=== PATIENT | female | born 1990 | race Caucasian/White ===

== ENCOUNTER 2019-05-16 17:54 | Inpatient (IN) | payer MEDICARE, MEDICAID, SELFPAY ==
[2019-05-16 17:55] VITALS: BP 106/54; PULSE 85; RESP 16; TEMP 36.5; O2SAT 97; BMI 35.2
--- NOTE | 2019-05-16 18:05 | PC.NURSE ---
janitorial services supervisor notified of the need for a sitter
--- NOTE | 2019-05-16 18:19 | PC.NURSE ---
patient placed in paper scrubs, UA obtained. UA given to RN and placed in lab. pt belongings obtained, labeled and placed in cabinet. 1:1 sitter at bedside. pt given warm blanket, resting comfortably and states no further needs.
--- NOTE | 2019-05-16 18:31 | ED_ITS ---
Entered by Kosta Sanchez LPN, acting as scribe for Raad Foley DO HPI - Psych General: Chief Complaint: Psychiatric Symptoms Stated Complaint: SI Time Seen by Provider: 05/16/19 18:32 Source: patient Mode of arrival: EMS Limitations: no limitations History of Present Illness: HPI Narrative: 28 yo female presents c/o depression and suicidal ideation. She has felt this way in the past. Last released from the hospital for similar visit 04/16/19. She has not yet formed a plan to commit suicide, states she [place] into the ambulance [place] the [place] first. She is currently on psych meds, reports she has been taking them. She denies any alcohol or drug use today. MD complaint: suicidal ideation Onset (ago): day(s) Associated symptoms: Reports depression and suicidal ideation; Deny auditory hallucinations, visual hallucinations or homicidal ideation If self harm: admits thoughts of self harm Review of Systems Const: Denies: fever or chills Eyes: Denies: change in vision or blurry vision ENMT: Denies: painful swallowing, swelling of lips/tongue, bleeding gums, dental pain, Change in hearing, nose bleeds, post nasal drip or facial/sinus pain Card: Denies: chest pain, palpitations, irregular heart rhythm, edema, swelling of feet/ankles, shortness of breath on exertion or shortness of breath when lying down Resp: Denies: shortness of breath, productive cough, non-productive cough or wheezing GI: Denies: abdominal pain, nausea, vomiting, rectal pain, blood in stool or black tarry stool : Denies: painful urination, urinary frequency, urinary urgency or blood in urine Musc: Denies: neck pain, back pain, redness or joint warmth Skin/Breast: Denies: rash, itching or redness Neuro: Denies: headache, dizziness, vertigo, confusion or seizure-like activity Psych: Reports: depression and suicidal ideation; Denies: anxiety, visual hallucinations, auditory hallucinations or homicidal ideation PFSH ED PFSH: Statuses (acute, chronic, etc) shown below reflect problem list status as previously entered and may not be historically accurate Social History Smoking and tobacco status: current every day smoker Female Reproductive History: Date of last menstrual period: 04/24/19 Physical Exam Const: COMMON NORMALS: no apparent distress, oriented x3, no limitations, alert and well nourished GENERAL APPEARANCE: well developed ORIENTATION/CONSCIOUSNESS: Yes awake, Yes oriented to person, Yes oriented to place and Yes oriented to time HENMT: COMMON NORMALS: normocephalic, external ears normal, external nose normal and moist oral mucous membranes HEAD & SCALP: normocephalic; no scalp tenderness FACE & SINUS: normal facial exam NOSE: external nose normal and no nasal discharge EXTERNAL EAR: Yes external ears normal MOUTH: tongue normal THROAT: posterior oropharynx normal; no peritonsillar mass Eye: COMMON NORMALS: PERRL, EOMs intact bilaterally and conjunctivae normal EYELID: eyelids normal CONJUNCTIVA: Yes conjunctivae normal PUPIL: Yes PERRL Neck/C-Spine: COMMON NORMALS: full ROM GENERAL: No tracheal deviation CERVICAL SPINE: Yes normal cervical lordosis, No cervical spine tenderness, No step off deformity, No paracervical muscle tenderness and No paracervical muscle spasm Chest: COMMONS NORMALS: inspection of chest normal CHEST: Yes symmetrical chest wall rise and No tenderness Resp: COMMON NORMALS: clear to auscultation bilaterally EFFORT & INSPECTION: No tachypneic, No respiratory distress, No retractions, No uses accessory muscles and No tracheal deviation AUSCULTATION: clear to auscultation bilaterally, no rhonchi, no wheezes and lung sounds not diminished Cardio: COMMON NORMALS: regular rate and regular rhythm RATE: regular rate RHYTHM: regular rhythm HEART SOUNDS: no murmurs PERIPHERAL PULSES: rad ial pulses present GI: INSPECTION: No abdominal distension AUSCULTATION: No hyperactive bowel sounds and No hypoactive bowel sounds PALPATION: No tender, No guarding and No rigid PERCUSSION: no dullness to percussion and no tympanic to percussion : COMMON NORMALS: Yes no CVA tenderness BLADDER/KIDNEY EXAM: Yes no CVA tenderness Back/Pelvis: COMMON NORMALS: no CVA tenderness PELVIS: Yes no pain with anterior-posterior compression and Yes no pain with lateral compression Neuro: COMMON NORMALS: oriented x3 SENSORIUM/ORIENTATION: Yes alert, Yes oriented to person, Yes oriented to place and Yes oriented to time Psych: COMMON NORMALS: mental status grossly normal, cooperative, affect normal, speech normal and denies homicidal ideation SPEECH: Yes normal speech MOOD & AFFECT: Yes depressed mood THOUGHT CONTENT: Yes suicidality Skin: COMMON NORMALS: no rashes or lesions noted GENERAL SKIN EXAM: no rashes or lesions noted MDM - Psych Lab Data: Labs: Lab Results 05/16/19 05/16/19 05/16/19 Range/Units 18:15 18:50 18:50 WBC 10.8 H (4.0-10.0) 10^3/ uL RBC 4.24 (4.1-5.3) 10^6/u L Hgb 12.5 (11.5-15.3) g/dL Hct 39.1 (37.0-47.0) % MCV 92.2 (81-99) fL MCH 29.5 (28.0-34.0) pg MCHC 32.0 (30.0-36.0) g/dL RDW 14.3 (12.1-15.1) % Plt Count 258 (130-400) 10^3/c mm MPV 10.2 (7.4-10.4) fL Neut % (Auto) 43.2 % Lymph % (Auto) 42.8 % Lanier % (Auto) 5.2 % Eos % (Auto) 7.6 % Baso % (Auto) 0.6 % Neut # (Auto) 4.7 (1.8-7.7) 10^3/u L Lymph # (Auto) 4.6 (0.8-4.8) 10^3/u L Lanier # (Auto) 0.6 (0.2-0.9) 10^3/u L Eos # (Auto) 0.8 (0.0-0.8) 10^3/u L Baso # (Auto) 0.1 (0.0-0.1) 10^3/u L Nucleated RBC % (a uto) 0 % Nucleated RBCs # 0.0 /100WBC Sodium 148 H (136-145) mmol/L Potassium 4.2 (3.5-5.1) mmol/L Chloride 108 H (98-107) mmol/L Carbon Dioxide 24 (22-29) mmol/L Anion Gap 20.2 H (5-19) BUN 9 (6-20) mg/dL Creatinine 0.8 (0.5-0.9) mg/dL GFR Calculation 84.2 L (90-130) mL/min Glucose 135 H (74-109) mg/dL Calcium 9.9 (8.6-10.0) mg/Dl Total Bilirubin 0.2 (0.15-1.2) mg/dL AST 13 (0-32) U/L ALT 14 (0-33) U/L Alkaline Phosphata se 103 (35-105) IU/L Total Protein 7.0 (6.6-8.7) g/dL Albumin 4.4 (3.5-5.2) g/dL Globulin 2.6 (1.3-4.6) g/dL TSH 1.87 (0.27-4.20) uIU/ mL HCG, Qual Negative (Negative) Urine Color (Yellow) Urine Appearance (CLEAR) Urine pH (5-7) Ur Specific Gravit y (1.005-1.030) Urine Protein (Negative) Urine Glucose (UA) (Normal) Urine Ketones (Negative) Urine Occult Blood (Negative) Urine Nitrate (Negative) Urine Bilirubin (NEGATIVE) Urine Urobilinogen (Negative) mg/dL Ur Leukocyte Jayshree ase (Negative) Salicylates < 0.3 L (3-10) mg/dL Urine Opiates Scre en (Negative) ng/mL Acetaminophen < 5.0 L (10-30) ug/mL Ur Barbiturates Sc reen (Negative) ng/mL Ur Phencyclidine S crn (Negative) ng/mL Ur Amphetamines Sc reen (Negative) ng/mL U Benzodiazepines Scrn (Negative) ng/mL Urine Cocaine Scre en (Negative) ng/mL U Marijuana (THC) Screen (Negative) ng/mL Ethyl Alcohol < 10 (0-10) mg/dL 05/16/19 05/16/19 Range/Units 20:25 20:25 WBC (4.0-10.0) 10^3/ uL RBC (4.1-5.3) 10^6/u L Hgb (11.5-15.3) g/dL Hct (37.0-47.0) % MCV (81-99) fL MCH (28.0-34.0) pg MCHC (30.0-36.0) g/dL RDW (12.1-15.1) % Plt Count (130-400) 10^3/c mm MPV (7.4-10.4) fL Neut % (Auto) % Lymph % (Auto) % Lanier % (Auto) % Eos % (Auto) % Baso % (Auto) % Neut # (Auto) (1.8-7.7) 10^3/u L Lymph # (Auto) (0.8-4.8) 10^3/u L Lanier # (Auto) (0.2-0.9) 10^3/u L Eos # (Auto) (0.0-0.8) 10^3/u L Baso # (Auto) (0.0-0.1) 10^3/u L Nucleated RBC % (a uto) % Nucleated RBCs # /100WBC Sodium (136-145) mmol/L Potassium (3.5-5.1) mmol/L Chloride (98-107) mmol/L Carbon Dioxide (22-29) mmol/L Anion Gap (5-19) BUN (6-20) mg/dL Creatinine (0.5-0.9) mg/dL GFR Calculation (90-130) mL/min Glucose (74-109) mg/dL Calcium (8.6-10.0) mg/Dl Total Bilirubin (0.15-1.2) mg/dL AST (0-32) U/L ALT (0-33) U/L Alkaline Phosphata se (35-105) IU/L Total Protein (6.6-8.7) g/dL Albumin (3.5-5.2) g/dL Globulin (1.3-4.6) g/dL TSH (0.27-4.20) uIU/ mL HCG, Qual (Negative) Urine Color Yellow (Yellow) Urine Appearance Clear (CLEAR) Urine pH 6 (5-7) Ur Specific Gravit y 1.020 (1.005-1.030) Urine Protein Neg (Negative) Urine Glucose (UA) Norm (Normal) Urine Ketones Negative (Negative) Urine Occult Blood Neg (Negative) Urine Nitrate Negative (Negative) Urine Bilirubin Neg (NEGATIVE) Urine Urobilinogen Norm (Negative) mg/dL Ur Leukocyte Jayshree ase Negative (Negative) Salicylates (3-10) mg/dL Urine Opiates Scre en Negative (Negative) ng/mL Acetaminophen (10-30) ug/mL Ur Barbiturates Sc reen Negative (Negative) ng/mL Ur Phencyclidine S crn Negative (Negative) ng/mL Ur Amphetamines Sc reen Negative (Negative) ng/mL U Benzodiazepines Scrn Negative (Negative) ng/mL Urine Cocaine Scre en Negative (Negative) ng/mL U Marijuana (THC) Screen Positive H (Negative) ng/mL Ethyl Alcohol (0-10) mg/dL Discharge Plan Discharge Admit Provider: Bismark Fry Discharge Date/Time: 05/16/19 22:10 Coding Level of Care Code ED Senior Environmental Practice Leader for Chg Fwd Exam Problem Focused The documentation recorded by the Laura saul Dani Elizabeth, LPN, accurately reflects the service I personally performed and the decisions made by , Raad Foley, May 16, 2019 17:54
[2019-05-16 18:59] LABS: Basophils # 0.1 10^3/uL (0.0-0.1); Basophils % 0.6 %; Eosinophils # 0.8 10^3/uL (0.0-0.8); Eosinophils % 7.6 %; Hematocrit 39.1 % (37.0-47.0); Hemoglobin 12.5 g/dL (11.5-15.3); Lymphocytes # 4.6 10^3/uL (0.8-4.8); Lymphocytes % 42.8 %; Mean Corpuscular Hemoglobin 29.5 pg (28.0-34.0); Mean Corpuscular Volume 92.2 fL (81-99); Mean Platelet Volume 10.2 fL (7.4-10.4); Monocytes # 0.6 10^3/uL (0.2-0.9); Monocytes % 5.2 %; Neutrophils # 4.7 10^3/uL (1.8-7.7); Neutrophils % 43.2 %; Nucleated Red Blood Cells % 0 %; Platelet Count 258 10^3/cmm (130-400); Red Blood Count 4.24 10^6/uL (4.1-5.3); Red Cell Distribution Width 14.3 % (12.1-15.1); White Blood Count 10.8 10^3/uL (4.0-10.0)
[2019-05-16 19:02] LABS: HCG Qualitative Urine. Negative (Negative)
[2019-05-16 19:22] LABS: Alanine Aminotransferase 14 U/L (0-33); Albumin Level 4.4 g/dL (3.5-5.2); Alkaline Phosphatase 103 IU/L (35-105); Anion Gap 20.2 (5-19); Aspartate Amino Transferase 13 U/L (0-32); Blood Urea Nitrogen 9 mg/dL (6-20); Calcium 9.9 mg/Dl (8.6-10.0); Carbon Dioxide 24 mmol/L (22-29); Chloride 108 mmol/L (98-107); Globulin 2.6 g/dL (1.3-4.6); Glomerular Filtration Rate 84.2 mL/min (90-130); Glucose 135 mg/dL (74-109); Potassium 4.2 mmol/L (3.5-5.1); Sodium 148 mmol/L (136-145); Thyroid Stimulating Hormone 1.87 uIU/mL (0.27-4.20); Total Bilirubin 0.2 mg/dL (0.15-1.2)
[2019-05-16 19:25] LABS: Slide Review Slide Review Perform
--- NOTE | 2019-05-16 19:26 | PC.NURSE ---
Pt sleeping at present time. Will asses upon awakening.
[2019-05-16 19:32] LABS: Acetaminophen < 5.0 ug/mL (10-30); Alcohol Level < 10 mg/dL (0-10); Salicylate < 0.3 mg/dL (3-10)
--- NOTE | 2019-05-16 19:55 | PC.NURSE ---
Introduced self to patient. Pt states that she is SI and has been feeling this way since 04/16/19. When asked what precipitated SI thoughts, she is unaware. Pt has no plan on how to hurt herself. Pt is in no pain at present.
[2019-05-16 20:05] VITALS: BP 112/66; PULSE 81; RESP 18; TEMP 36.9; O2SAT 96
[2019-05-16 20:52] LABS: Add Urine Microscopic? NO
[2019-05-16 21:00] LABS: Amphetamines Screen Urine Negative (Negative); Barbiturates Screen Urine Negative (Negative); Benzodiazepines Screen Urine Negative (Negative); Cocaine Screen Urine Negative (Negative); Opiate Screen Urine Negative (Negative); PCP Screen Urine Negative (Negative); THC Screen Urine Positive (Negative)
[2019-05-16 21:01] LABS: Bilirubin Urine Neg (NEGATIVE); Blood Urine Neg (Negative); Glucose Urine UA Norm (Normal); Ketones Urine Negative (Negative); Leukocyte Esterase Urine Negative (Negative); Nitrate Urine Negative (Negative); Protein Urine Neg (Negative); Urine Appearance Clear (CLEAR); Urine Color Yellow (Yellow); Urobilinogen Urine Norm (Negative); pH Urine 6 (5-7)
--- NOTE | 2019-05-16 21:05 | PC.NURSE ---
Introduced self to patient and initiated vital signs. Pt is A&O x 4 and agreeeable. Pt states that the reason for the ER visit today is due to ...... Pt also complaining of ....... Reassured patient of needs and will continue to monitor. Awaiting provider at bedside.
[2019-05-16 22:17] VITALS: BP 122/85; PULSE 86; RESP 17; TEMP 36.4; O2SAT 97
[2019-05-17 05:55] VITALS: BP 148/97; PULSE 102; RESP 16; TEMP 36.6; O2SAT 96
[2019-05-17 14:00] VITALS: BP 118/83; PULSE 95; RESP 16; TEMP 36.9; O2SAT 97
[2019-05-17] MEDS: propranolol 20 mg Tablet PO (14:11)
[2019-05-17] MEDS: duloxetine 60 mg Capsule PO (17:23)
[2019-05-17] MEDS: ibuprofen 600 mg Tablet PO (17:23)
--- NOTE | 2019-05-17 18:10 | P.HP_ITS ---
Providers/Chief Complaint Admitting Physician: Bismark Fry MD Primary Care Provider: Rowyd Graves APN Chief Complaint: SI HPI NPU History of Present Illness Dena Greene is a 28 year old female who presents today reporting that she is taking her medications as prescribed and that this represents a ongoing family conflict that escalated to a point that she was so angry that she had concerns about self-harm. She reports that she never did it and wasn't going to do it but she was worried. She also had a mild to moderate case of conjunctivitis that has resolved. She reports that she had been feeling crappy and she feels like that may have also contributed to her reaction. She denies any thoughts of lethality today. She reports that her previous evaluations psychosocial representation of her life currently is unchanged. We reviewed her past recent hospitalizations that can be seen below. This is her fourth hospitalization in a year. She reports that she feels her medications are working fine and that she sometimes doesn't manage her emotions well. We discussed the risks benefits and alternatives of increasing the Lamictal and she understood and agreed to proceed as is documented in this note. Her April eval: History of Present Illness Date of Service: Apr 12, 2019 Chief Complaint: I am having a really rough time. HPI: The patient presents today reporting that she is not really sure what is going on. She endorses that she has been struggling with having strange thoughts, being confused, feeling like she is hearing things and seeing things, and feeling paranoid. She reports that she has had success with Depakote and that she had not had access to her medications. She reports that having them back is making her feel better. She endorses a history of hospitalizations and poor follow-up. She is a very poor historian, dosing off during the interview. We agreed that we would try to delve into some of her history more tomorrow. PSYCHIATRIC HISTORY: As above. Significant history of hospitalizations both here and elsewhere. She is on multiple medications. SUBSTANCE ABUSE HISTORY: Significant history of methamphetamine and other drugs. Positive drug screen during this visit. She currently is appearing to be withdrawing from methamphetamine. HISTORY OF PRESENT ILLNESS Chief Complaint: ANXIOUS and AGITATED, DELUSIONAL and HALLUCINATIONS. This started today. (28 yo Female presents to ED with complaint of not sleeping, hallucinations, delusions, and bizarre behavior. Pt is thrashing around in the bed and making nonsensical statements. Pt does not answer questions appropriately. Per EMS, the patient was found in a yard with no pants on.). No situational problems or recent drug use or alcohol consumption. She has not exhibited a behavior change, was not found wandering and is compliant with medication. Has exhibited unusual behavior but been eating or not been depressed. Has not been sleeping. She has had anxiety, delusions and hallucinations. No anger, paranoia, suicidal thoughts or self-injury inflicted. The symptoms are described as severe. No injury is present. Similar symptoms previously. None. Recent medical care: Seen for in ED on 02/06/19 for back pain DX Acute and chronic lumbar back pain. REVIEW OF SYSTEMS Unobtainable due to patient's altered mental status. No difficulty breathing. PAST HISTORY See nurses notes. Hypertension. Lung disease. Neurological disease. Other disease. Asthma. Bronchitis. Hyperglycemia. Hypokalemia. History of migraine headaches. Hepatitis. Constipation. Ovarian cyst. Vaginal bleeding. Urinary tract infection. Pyelonephritis. Sinus problems. Otitis media. Dental abscess. Dental caries. Dental pain. Methicillin-resistant Staphylococcal infection. Folliculitis. Back pain. Anxiety. Bipolar disorder. Depression. Schizophrenia and psychosis. Insomnia. Previous suicide attempts. Substance abuse. ( Lifestyle / Substance Problems). ( Atypical Chest Pain, Abscess). ( Sprain, Suicidal Ideation, Sinusitis, Skin Rash). ( Myofascial Strain). ( Contusion, Costochondritis, Chest Pain). ( Vaginitis). ( Post-Op Complications, Post-Op Wound Dehiscence). ( Fibula Fracture). ( Healing Abscess, Hyperventilation, Hives). Surgeries: Adenoidectomy. Tympanostomy tube placement. Tonsillectomy. Tubal ligation. (GLAND REMOVED BETWEEN THIGHS). SOCIAL HISTORY Current every day smoker. Alcohol use. (unable to obtain). No drug use. ADDITIONAL NOTES The nursing notes have been reviewed. PHYSICAL EXAM Vital Signs: 04/11/2019 19:58 BP: 144/98. HR: 92. RR: 18. O2 saturation: 97%. Temp: 98.4 F. Appearance: Alert. In distress. Appearance is abnormal. Patient is in moderate distress. Is disheveled. Anxious. Eyes: Pupils equal, round and reactive to light. Neck: Normal inspection. Neck supple. CVS: Normal heart rate and rhythm. Heart sounds normal. Respiratory: Breath sounds normal. Chest nontender. Abdomen: Soft and nontender. Back: No tenderness. Skin: Skin warm and dry. Normal skin color. Normal skin turgor. (multiple shallow skin sores consistent with methamphetamine use). Extremities: Extremities exhibit normal ROM. No lower extremity edema. Psych / Neuro: Mood and affect normal. Speech is incoherent and inappropriate. Cognition not normal. The patient is disoriented. Thought content not normal. Thought process not normal. The patient exhibits altered thought processes. Appears to have hallucinations and delusions. Insight and judgement not normal. The patient does not appear to understand hers illness. No motor deficit. No sensory deficit. Disoriented. LABS, X-RAYS, AND EKG Laboratory Tests: Laboratory tests have been ordered, with results reviewed and considered in the medical decision making process. Urinalysis: (MORRO: 04/11/2019 20:57)( MsgRcvd 04/11/2019 21:29) Completed From psychiatric evaluation earlier this year: History of Present Illness Date of Service: May 17, 2018 Chief Complaint: I had a breakdown I guess. HPI: The patient is a 27-year-old female admitted voluntarily for suicidal and homici lisa ideation towards her mother. When asked about any particular trigger yesterday, the patient reports I don't know she states that she has been having bilateral ear pain X3 weeks and hyperacusis and GARCIA. Pt reports that her mother talks too much and has been yelling at her frequently over the past 2 weeks. I felt like killin' my mom. She wouldn't be quiet and my ears was hurtin really bad. The patient has minimal input during interview. She does report irritability and depression all the time and having SI intermittently I was workin' on it coming up with a plan when brother called police. She also endorses some problems with insomnia or hypersomnolence, fatigue, poor appetite, feeling helpless. She denies any visual/auditory/tactile hallucinations but does endorse feeling helpless and endorsing some possible somatic delusions of contamination. Reports I just feel really dirty. I'm planning dirt out of my skin. She is picking her cuticles and face throughout the interview. She denies any overt paranoia but does endorse some ongoing chronic PTSD symptoms which she does not wish to discuss in detail. She reports some vague intermittent nightmares as well as chronic hypervigilance. Psychiatric review of systems: As above. Patient does have established history of PTSD including flashbacks of trauma childhood and nightmares hypervigilance, increased startle, avoidance of triggers, intrusive memories. Denies history of manic episode including periods of hyper-/irritable mood with decreased need for sleep and risky behaviors. Past psychiatric history: Patient has a history of 4 prior NPU admissions in the context of suicidal/homicidal ideation and methamphetamine/cannabis abuse. The patient has had a prior diagnosis of bipolar disorder versus schizophrenia on acting injectable Abilify and history of noncompliance with medication. Past medications: BuSpar/hydroxyzine not helpful for anxiety, Zyprexa somewhat helpful for anxiety. Reports recently intermittently taking Zyprexa/Lamictal/Cymbalta. Past medical history: Numerous skin picking lesions, history of Hypertension, asthma, history of recurrent hypokalemia, history of migraines, obstructive sleep apnea on CPAP, history of recurrent otitis media and ear surgeries. Family history: Reports mother has mental health problems Social history: Patient is single and lives with her mother. She is unemployed on disability. Does report occasional marijuana use but denies any methamphetamine use for the past 1 year despite being informed of positive urine drug screen for amphetamines. Denies any significant alcohol use. Denies legal problems. Allergies: Coded Allergies: ACETAMINOPHEN (Verified Allergy, Severe, RASH, 05/16/18) ADHESIVE TAPE (Verified Allergy, Severe, SEVERE RASH, 05/16/18) CODEINE (Verified Allergy, Severe, RASH, 05/16/18) GUAIFENESIN (Verified Allergy, Severe, RASH, DIARRHEA, THROWING UP, 05/16/18) SULFA (SULFONAMIDE ANTIBIOTICS) (Verified Allergy, Severe, RASH, DIARHEA, 05/16/18) ALL SULFA SUMATRIPTAN (Verified Allergy, Severe, HEADACHES, 05/16/18) ERYTHROMYCIN ETHYLSUCCINATE (Verified Allergy, Unknown, RASH, 05/16/18) Meds NPU Home Medications Medication Instructions Recorded Confirmed Type duloxetine [Cymbalta] 60 mg PO BID 05/17/19 05/17/19 History ibuprofen [IBU] 600 mg PO BID 05/17/19 05/17/19 History lactulose 5 ml PO BID 05/17/19 05/17/19 History lamotrigine [Lamictal] 100 mg PO BEDTIME 05/17/19 05/17/19 History propranolol 20 mg PO DAILY 05/17/19 05/17/19 History tizanidine [Zanaflex] 4 mg PO DIRECTED PRN MDD 3 05/17/19 05/17/19 History Allergies Allergy/AdvReac Type Severity Reaction Status Date / Time Sulfa (Sulfonamide Allergy Mild ALGY-Rash Verified 05/17/19 11:11 Antibiotics) PFSH NPU PFSH: Statuses (acute, chronic, etc) shown below reflect problem list status as previously entered and may not be historically accurate Social History Smoking and tobacco status: current every day smoker Mental Status Exam MSE Comments: This is an obese white female with limited dressed, grooming and contact. No abnormal movements except for psychomotor retardation. Cooperative with exam in no acute distress. Speech was decreased rate and volume. Mood described as tired, affect subdued. Thought process organized. Thought content: Patient denies any suicidal or homicidal ideation, there were no delusions reported or noted, she denied any auditory or visual hallucinations. Attention and concentration were intact and memory appeared reliable with none were formally tested. She is alert and oriented ?3. Insight and judgment are fair. Vitals/I&O/Wt Last Vital Signs Temp 98.5 F 05/17/19 14:00 Pulse 95 05/17/19 14:00 Resp 16 05/17/19 14:00 BP 118/83 05/17/19 14:00 Pulse Ox 97 05/17/19 14:00 Weight last 48 hrs Weight 81.647 kg A&P Assessment and plan (1) Impulse control disorder: This is a 28-year-old white female with a long history of poor impulse control and cluster B traits, question of PTSD, and addiction issues who presents after a family conflict which lead to aggressive thoughts. 1. Continue current medication. 2. Start Lamictal 25 mg by mouth every morning and discharge with increasing dose every week to get to a final dose of 100 mg by mouth twice a day 3. Encourage individual, group and milieu therapy. 4. Continue every 15 minute checks for safety. 5. Work with social work team to get some collateral information. Status: Acute Code(s): F63.9 - Impulse disorder, unspecified (2) Cluster B personality disorder: Status: Acute Code(s): F60.89 - Other specific personality disorders Involuntary Hold Information 96 Hour Hold: 96 Hour Involuntary Admission: No Attestations NPU 2 Medical Necessity Statement*: Inpatient hospitalization is medically necessary and the clinically appropriate intervention at this time. She will be in the hospital for 2 midnights. We will monitor medications and titrate to effect. Likely will stay 2-4 days. Coding Level of Care Code Acute Chemical Plant Technical Director for g Fwd Diagnoses Impulse control disorder F63.9 Cluster B personality disorder F60.89
[2019-05-17 20:02] VITALS: BP 117/76; PULSE 80; RESP 17; TEMP 37.2; O2SAT 97
[2019-05-17] MEDS: lamoTRIgine 100 mg Tablet PO (22:53)
[2019-05-18 05:56] VITALS: BP 133/91; PULSE 93; RESP 18; TEMP 36.4; O2SAT 96
[2019-05-18] MEDS: lactulose oral liq 20 gm/30 mL UDC 3.34 GM PO (08:23)
[2019-05-18] MEDS: ibuprofen 600 mg Tablet PO (08:24)
[2019-05-18] MEDS: propranolol 20 mg Tablet PO (08:24)
[2019-05-18] MEDS: duloxetine 60 mg Capsule PO (08:25)
[2019-05-18] MEDS: lamoTRIgine 25 mg Tablet PO (12:53)
--- NOTE | 2019-05-18 13:12 | P.DS_ITS ---
Diagnoses at Discharge Discharge Diagnosis (1) Impulse control disorder: Status: Acute (2) Cluster B personality disorder: Status: Acute Reason for Visit Reason for Visit: Reason For Visit: SI Brief History: HPI NPU History of Present Illness Dena Greene is a 28 year old female who presents today reporting that she is taking her medications as prescribed and that this represents a ongoing family conflict that escalated to a point that she was so angry that she had concerns about self-harm. She reports that she never did it and wasn't going to do it but she was worried. She also had a mild to moderate case of conjunctivitis that has resolved. She reports that she had been feeling crappy and she feels like that may have also contributed to her reaction. She denies any thoughts of lethality today. She reports that her previous evaluations psychosocial representation of her life currently is unchanged. We reviewed her past recent hospitalizations that can be seen below. This is her fourth hospitalization in a year. She reports that she feels her medications are working fine and that she sometimes doesn't manage her emotions well. We discussed the risks benefits and alternatives of increasing the Lamictal and she understood and agreed to proceed as is documented in this note. Her April eval: History of Present Illness Date of Service: Apr 12, 2019 Chief Complaint: I am having a really rough time. HPI: The patient presents today reporting that she is not really sure what is going on. She endorses that she has been struggling with having strange thoughts, being confused, feeling like she is hearing things and seeing things, and feeling paranoid. She reports that she has had success with Depakote and that she had not had access to her medications. She reports that having them back is making her feel better. She endorses a history of hospitalizations and poor follow-up. She is a very poor historian, dosing off during the interview. We agreed that we would try to delve into some of her history more tomorrow. PSYCHIATRIC HISTORY: As above. Significant history of hospitalizations both here and elsewhere. She is on multiple medications. SUBSTANCE ABUSE HISTORY: Significant history of methamphetamine and other drugs. Positive drug screen during this visit. She currently is appearing to be withdrawing from methamphetamine. HISTORY OF PRESENT ILLNESS Chief Complaint: ANXIOUS and AGITATED, DELUSIONAL and HALLUCINATIONS. This started today. (28 yo Female presents to ED with complaint of not sleeping, hallucinations, delusions, and bizarre behavior. Pt is thrashing around in the bed and making nonsensical statements. Pt does not answer questions appropriately. Per EMS, the patient was found in a yard with no pants on.). No situational problems or recent drug use or alcohol consumption. She has not exhibited a behavior change, was not found wandering and is compliant with medication. Has exhibited unusual behavior but been eating or not been depressed. Has not been sleeping. She has had anxiety, delusions and hallucinations. No anger, paranoia, suicidal thoughts or self-injury inflicted. The symptoms are described as severe. No injury is present. Similar symptoms previously. None. Recent medical care: Seen for in ED on 02/06/19 for back pain DX Acute and chronic lumbar back pain. REVIEW OF SYSTEMS Unobtainable due to patient's altered mental status. No difficulty breathing. PAST HISTORY See nurses notes. Hypertension. Lung disease. Neurological disease. Other disease. Asthma. Bronchitis. Hyperglycemia. Hypokalemia. History of migraine headaches. Hepatitis. Constipation. Ovarian cyst. Vaginal bleeding. Urinary tract infection. Pyelonephritis. Sinus problems. Otitis media. Dental abscess. Dental caries. Dental pain. Methicillin-resistant Staphylococcal infection. Folliculitis. Back pain. Anxiety. Bipolar disorder. Depression. Schizophrenia and psychosis. Insomnia. Previous suicide attempts. Substance abuse. ( Lifestyle / Substance Problems). ( Atypical Chest Pain, Abscess). ( Sprain, Suicidal Ideation, Sinusitis, Skin Rash). ( Myofascial Strain). ( Contusion, Costochondritis, Chest Pain). ( Vaginitis). ( Post-Op Complications, Post-Op Wound Dehiscence). ( Fibula Fracture). ( Healing Abscess, Hyperventilation, Hives). Surgeries: Adenoidectomy. Tympanostomy tube placement. Tonsillectomy. Tubal ligation. (GLAND REMOVED BETWEEN THIGHS). SOCIAL HISTORY Current every day smoker. Alcohol use. (unable to obtain). No drug use. ADDITIONAL NOTES The nursing notes have been reviewed. PHYSICAL EXAM Vital Signs: 04/11/2019 19:58 BP: 144/98. HR: 92. RR: 18. O2 saturation: 97%. Temp: 98.4 F. Appearance: Alert. In distress. Appearance is abnormal. Patient is in moderate distress. Is disheveled. Anxious. Eyes: Pupils equal, round and reactive to light. Neck: Normal inspection. Neck supple. CVS: Normal heart rate and rhythm. Heart sounds normal. Respiratory: Breath sounds normal. Chest nontender. Abdomen: Soft and nontender. Back: No tenderness. Skin: Skin warm and dry. Normal skin color. Normal skin turgor. (multiple shallow skin sores consistent with methamphetamine use). Extremities: Extremities exhibit normal ROM. No lower extremity edema. Psych / Neuro: Mood and affect normal. Speech is incoherent and inappropriate. Cognition not normal. The patient is disoriented. Thought content not normal. Thought process not normal. The patient exhibits altered thought processes. Appears to have hallucinations and delusions. Insight and judgement not normal. The patient does not appear to understand hers illness. No motor deficit. No sensory deficit. Disoriented. LABS, X-RAYS, AND EKG Laboratory Tests: Laboratory tests have been ordered, with results reviewed and considered in the medical decision making process. Urinalysis: (MORRO: 04/11/2019 20:57)( MsgRcvd 04/11/2019 21:29) Completed From psychiatric evaluation earlier this year: History of Present Illness Date of Service: May 17, 2018 Chief Complaint: I had a breakdown I guess. HPI: The patient is a 27-year-old female admitted voluntarily for suicidal and homicidal ideation towards her mother. When asked about any particular trigger yesterday, the patient reports I don't know she states that she has been having bilateral ear pain X3 weeks and hyperacusis and GARCIA. Pt reports that her mother talks too much and has been yelling at her frequently over the past 2 weeks. I felt like killin' my mom. She wouldn't be quiet and my ears was hurtin really bad. The patient has minimal input during interview. She does report irritability and depression all the time and having SI intermittently I was workin' on it coming up with a plan when brother called police. She also endorses some problems with insomnia or hypersomnolence, fatigue, poor appetite, feeling helpless. She denies any visual/auditory/tactile hallucinations but does endorse feeling helpless and endorsing some possible somatic delusions of contamination. Reports I just feel really dirty. I'm planning dirt out of my skin. She is picking her cuticles and face throughout the interview. She denies any overt paranoia but does endorse some ongoing chronic PTSD symptoms which she does not wish to discuss in detail. She reports some vague intermittent nightmares as well as chronic hypervigilance. Psychiatric review of systems: As above. Patient does have established history of PTSD including flashbacks of trauma childhood and nightmares hypervigilance, increased startle, avoidance of triggers, intrusive memories. Denies history of manic episode including periods of hyper-/irritable mood with decreased need for sleep and risky behaviors. Past psychiatric history: Patient has a history of 4 prior NPU admissions in the context of suicidal/homicidal ideation and methamphetamine/cannabis abuse. The patient has had a prior diagnosis of bipolar disorder versus schizophrenia on acting injectable Abilify and history of noncompliance with medication. Past medications: BuSpar/hydroxyzine not helpful for anxiety, Zyprexa somewhat helpful for anxiety. Reports recently intermittently taking Zyprexa/Lamictal/Cymbalta. Past medical history: Numerous skin picking lesions, history of Hypertension, asthma, history of recurrent hypokalemia, history of migraines, obstructive sleep apnea on CPAP, history of recurrent otitis media and ear surgeries. Family history: Reports mother has mental health problems Social history: Patient is single and lives with her mother. She is unemployed on disability. Does report occasional marijuana use but denies any methamphetamine use for the past 1 year despite being informed of positive urine drug screen for amphetamines. Denies any significant alcohol use. Denies legal problems. Allergies: Coded Allergies: ACETAMINOPHEN (Verified Allergy, Severe, RASH, 05/16/18) ADHESIVE TAPE (Verified Allergy, Severe, SEVERE RASH, 05/16/18) CODEINE (Verified Allergy, Severe, RASH, 05/16/18) GUAIFENESIN (Verified Allergy, Severe, RASH, DIARRHEA, THROWING UP, 05/16/18) SULFA (SULFONAMIDE ANTIBIOTICS) (Verified Allergy, Severe, RASH, DIARHEA, 05/16/18) ALL SULFA SUMATRIPTAN (Verified Allergy, Severe, HEADACHES, 05/16/18) ERYTHROMYCIN ETHYLSUCCINATE (Verified Allergy, Unknown, RASH, 05/16/18) Hospital Course Hospital Course Dena presented to the emergency room with thoughts of lethality but minus acts of furtherance per anyone's report. She did report that she fell there was something missing from her medication regimen. We discussed the risks benefits and alternatives of increasing her Lamictal to a more therapeutic dosing, and she understood and agreed to proceed with the increase which would take her from 100 mg at night 200 mg p.o. twice daily with a titration over 3 weeks. We discussed the risk for Mazariegos-Shahbaz syndrome by moving more quickly with the dosing. She has been on a higher dose in the past with success. She was fairly ambivalent about coming into the hospital in the first place and was very quickly desirous for discharge. During the hospitalization she had routine laboratory studies which were within normal limits except for a few outliers. Additionally she had a general medical evaluation which was also within normal limits and revealed no new acute processes. Discharge Summary At the time of discharge she denied all lethality, and endorsed that her mood had improved and anxiety was better knowing that she was going to be returning to a better dose of the Lamictal. She endorsed a plan to follow-up at outpatient services after discharge. She was absent credible lethality and had obtained the maximum benefit from an inpatient hospitalization so she was discharged. Involuntary Hold Information 96 Hour Hold: 96 Hour Involuntary Admission: No Mental Status Exam MSE Comments: This is an obese white female with adequate dress, grooming and eye contact. No abnormal movements except for improving psychomotor retardation. Cooperative with exam in no acute distress. Speech was slightly decreased rate and volume. Mood described as better, affect brighter. Thought process organized. Thought content: Patient denies any suicidal or homicidal ideation, there were no delusions reported or noted, she denied any auditory or visual hallucinations. Attention and concentration were intact and memory appeared reliable with none were formally tested. She is alert and oriented ?3. Insight and judgment are fair. Discharge Data Vitals: Last Vital Signs Temp 97.6 F 05/18/19 05:56 Pulse 93 05/18/19 05:56 Resp 18 05/18/19 05:56 BP 133/91 05/18/19 05:56 Pulse Ox 96 05/18/19 05:56 Discharge Plan Discharge Patient Disposition: Home, Self-Care Condition: Stable Prescriptions: New lamotrigine 100 mg Tablet 100 mg PO BID 30 Days Qty: 60 RF: 1 Continued ibuprofen [IBU] 600 mg Tablet 600 mg PO BID RF: 0 lactulose 10 gram/15 mL solution 5 ml PO BID RF: 0 tizanidine [Zanaflex] 4 mg tablet 4 mg PO DIRECTED MDD 3 PRN (Reason: Muscle Spasm) RF: 0 propranolol 20 mg tablet 20 mg PO DAILY 30 Days Qty: 30 RF: 1 Lamictal 100 mg tablet 100 mg PO BEDTIME 20 Days Qty: 20 RF: 0 Cymbalta 60 mg capsule,delayed release(DR/EC) 60 mg PO BID 30 Days Qty: 60 RF: 1 Discharge Orders: Discharge Order (Routine); Ordered 05/18/19 Ordered By: Bismark Fry Discharge Diet: Regular Discharge Activity: Resume usual activity Activity Restrictions/Additional Instructions: Previously scheduled appointment with your medication provider CIRILO Rosales June 02 @ 11:20 am with CIRILO Johansen [address] [address] Discharge Date/Time: 05/18/19 14:59 Discharge Attestations NPU Time Spent in Discharge Care*: less than 30 min Specific Discharge Activities: Specific discharge activities: educating patient, discussing with telephonic case manager/social workers/dc planners, documenting/other paperwork and evaluating patient/reviewing data Coding Level of Care Code Acute Paperboard Boxes Estimator for Lathag Fwd Diagnoses Impulse control disorder F63.9 Cluster B personality disorder F60.89
--- NOTE | 2019-05-18 13:36 | PC.SOCIAL ---
Medicaid ride called for trip home, confirmation #[id number]. Requested 2:30PM arrival time. If for some reason the ride does not show up you may call the Where's My Ride number at
[2019-05-18 13:42] VITALS: BP 134/70; PULSE 80; RESP 20; TEMP 36.7; O2SAT 98
== END 2019-05-18 14:59 | disposition home or self-care (01) | DRG 886 ==
LOC: ER 20:15 → NP 21:40
PROVIDERS: Admitting Provider Psychiatry & Neurology Psychiatry; Emergency Provider Emergency Medicine; PCP Nurse Practitioner Family; Visit Provider Psychiatry & Neurology Psychiatry
DX: F63.9 Impulse disorder, unspecified (principal); I10 Essential (primary) hypertension; F41.9 Anxiety disorder, unspecified; F31.9 Bipolar disorder, unspecified; F20.9 Schizophrenia, unspecified; G47.00 Insomnia, unspecified; F43.10 Post-traumatic stress disorder, unspecified; G47.33 Obstructive sleep apnea (adult) (pediatric); Z88.2 Allergy status to sulfonamides; F60.89 Other specific personality disorders; E66.9 Obesity, unspecified; Z68.35 Body mass index [BMI] 35.0-35.9, adult
CPT/HCPCS: 12345; 80053; 80307; 81003; 81025; 84443; 85025; 99284

== ENCOUNTER 2019-05-21 19:50 | Emergency (ER) | payer MEDICARE, MEDICAID, SELFPAY ==
[2019-05-21 20:06] VITALS: BP 156/98; PULSE 88; RESP 18; TEMP 37; O2SAT 98; BMI 35.2
--- NOTE | 2019-05-21 20:12 | ED_ITS ---
HPI - General Adult General: Stated complaint: STRESSED OUT Time Seen by Provider: 05/21/19 20:02 History of Present Illness: HPI narrative: Patient feels tired had an argument with her brother. They lost her lease today. Patient not suicidal nor hurting by. Just feels anxious. Onset (ago): day(s) Associated symptoms: Deny chest pain, dyspnea, headache(s), nausea, rash or vomiting Review of Systems Const: Denies: fever, chills or body aches Eyes: Denies: change in vision or blurry vision ENMT: Denies: throat pain or nasal congestion Card: Denies: chest pain or shortness of breath on exertion Resp: Denies: shortness of breath, productive cough or non-productive cough GI: Denies: abdominal pain, nausea or vomiting Musc: Denies: extremity pain Skin/Breast: Denies: rash Neuro: Denies: headache Psych: Reports: anxiety; Denies: depression Renny/Lymph: Denies: easy bruising PFSH ED PFSH: Statuses (acute, chronic, etc) shown below reflect problem list status as previously entered and may not be historically accurate Social History Smoking and tobacco status: current every day smoker Female Reproductive History: Date of last menstrual period: 04/24/19 Physical Exam Const: COMMON NORMALS: no apparent distress, average body habitus and oriented x3 HENMT: COMMON NORMALS: normocephalic HEAD & SCALP: normal to inspection and normocephalic FACE & SINUS: normal facial exam Eye: COMMON NORMALS: conjunctivae normal GENERAL EYE: normal appearance of both eyes CONJUNCTIVA: Yes conjunctivae normal Neck/C-Spine: COMMON NORMALS: no JVD Chest: COMMONS NORMALS: inspection of chest normal Resp: COMMON NORMALS: normal respiratory effort and clear to auscultation bilaterally AUSCULTATION: clear to auscultation bilaterally Cardio: COMMON NORMALS: no JVD, regular rate and regular rhythm RATE: regular rate RHYTHM: regular rhythm GI: COMMON NORMALS: normal to inspection, nondistended, normoactive bowel sounds Extremity: COMMON NORMALS: normal to inspection and full ROM Neuro: COMMON NORMALS: oriented x3 Discharge Plan Discharge Prescriptions: No Action ibuprofen [IBU] 600 mg Tablet 600 mg PO BID RF: 0 lactulose 10 gram/15 mL solution 5 ml PO BID RF: 0 tizanidine [Zanaflex] 4 mg tablet 4 mg PO DIRECTED MDD 3 PRN (Reason: Muscle Spasm) RF: 0 lamotrigine 25 mg Tablet 25 mg PO DAILY 20 Days Qty: 41 RF: 0 lamotrigine 100 mg Tablet 100 mg PO BID 30 Days Qty: 60 RF: 1 propranolol 20 mg tablet 20 mg PO DAILY 30 Days Qty: 30 RF: 1 Lamictal 100 mg tablet 100 mg PO BEDTIME 20 Days Qty: 20 RF: 0 Cymbalta 60 mg capsule,delayed release(DR/EC) 60 mg PO BID 30 Days Qty: 60 RF: 1 Coding Level of Care Code ED Dust Mill Operator for Adelia Cat
[2019-05-21] MEDS: LORazepam 1 mg Tablet 0.5 MG PO (20:44)
[2019-05-21 20:50] VITALS: BP 121/92; PULSE 105; RESP 14; TEMP 36.6; O2SAT 99
[2019-05-21 21:04] LABS: HCG Qualitative Urine. Negative (Negative)
== END 2019-05-21 20:50 | disposition home or self-care (01) ==
PROVIDERS: Emergency Provider Nurse Practitioner Family; PCP Nurse Practitioner Family
DX: F43.9 Reaction to severe stress, unspecified (principal); F17.210 Nicotine dependence, cigarettes, uncomplicated
CPT/HCPCS: 81025; 99281

== ENCOUNTER 2019-11-22 12:05 | Outpatient (CLI) | payer MEDICARE, MEDICAID, SELFPAY ==
--- NOTE | 2019-11-22 12:30 | CT_ITS ---
WS: [id number] CT ABDOMEN PELVIS TECHNIQUE: Contrast-enhanced CT of the abdomen and pelvis with coronal and sagittal reformatted image s. CLINICAL INFORMATION: UNSPECIFIED ABDOMINAL PAIN, ABDOMINAL DISTENTION COMPARISON: CT 11 and 8 DLP: 1107.[address] scans at [facility] use at least one of these dose optimization techniques: automat ed exposure control; mA and/or kV adjustment per patient size (includes targeted exams where dose is matched to clinical indication); or iterative reconstruction. FINDINGS: Mild diffuse fatty infiltration liver. Normal spleen. Small splenules. Normal pancreas. No intrahepatic biliary ductal dilatation. Adrenal glands are normal. Normal renal p arenchymal enhancement. A few prominent periaortic lymph nodes likely reactive not pathologically enl arged. Tiny fat-containing umbilical hernia. Lung bases are well aerated. Calcified granuloma left lower lob e. Heterogeneous lobulated uterus with bilateral peripheral enhancing adnexal cystic lesions. Right o varian cyst measures 2.5 cm and left ovarian cyst measures 3.2 CM. Small left renal cysts. No signifi cant free fluid in the pelvis. CT/CT abdomen pelvis w con* [id number] IMPRESSION: 1. Heterogeneous uterine enhancement with bilateral ovarian cysts measuring 2. 5 cm right and 3.3 cm left. Recommend further evaluation with ultrasound. 2. Mild diffuse fatty infiltration liver with enlargement of the right hepatic lobe. 3. Small left renal cyst. No hydronephrosis. 4. A few shoddy periaortic lymph nodes likely reactive. 5. No other significant findings.
[2019-11-22] MEDS: iohexol 300 mg/mL 50 mL Btl PO (12:54)
[2019-11-22] MEDS: iohexol 300 mg/mL 100 mL Btl IV (14:16)
== END 2019-11-22 12:06 | disposition home or self-care (01) ==
PROVIDERS: PCP Nurse Practitioner Family; Visit Provider Nurse Practitioner Family
DX: R10.9 Unspecified abdominal pain (principal); R14.0 Abdominal distension (gaseous); N28.1 Cyst of kidney, acquired; K76.0 Fatty (change of) liver, not elsewhere classified; N83.202 Unspecified ovarian cyst, left side; N83.201 Unspecified ovarian cyst, right side
CPT/HCPCS: 74177; Q9967

== ENCOUNTER 2020-02-02 14:07 | Outpatient (CLI) | payer MEDICARE, MEDICAID, SELFPAY ==
--- NOTE | 2020-02-02 14:20 | US_ITS ---
WS: [id number] TRANSABDOMINAL PELVIC AND TRANSVAGINAL PELVIC ULTRASOUND HISTORY: OVARIAN CYST COMPARISON: 12/03/2016 Uterus: 8.4 cm x 4.7 cm x 3.9 cm. Normal size anteverted uterus. No fibroid or mass. Endometrium: 0.4 cm. Poorly visualized but no enlargement identified. Right ovary: 4.7 cm x 4.0 cm x 2.7 cm. No cystic mass identified. Slightly enlarged ovary with no ma ss. Left ovary: 4.3 cm x 3.6 cm x 2.7 cm. No mass identified. Normal small peripheral follicles. No free fluid. US/US pelvic with transvaginal IMPRESSION: No ovarian cyst identified today. Endometrial evaluation is limited due to body habitus.
== END 2020-02-02 14:08 | disposition home or self-care (01) ==
PROVIDERS: PCP Nurse Practitioner Family; Visit Provider Nurse Practitioner Family
DX: N83.209 Unspecified ovarian cyst, unspecified side (principal); R93.89 Abnormal findings on diagnostic imaging of other specified body structures
CPT/HCPCS: 76830; 76856

== ENCOUNTER → 2020-10-27 13:51 | Outpatient (BNVA) | payer MEDICARE, MEDICAID, SELFPAY | PROVIDERS: PCP Nurse Practitioner Family; Visit Provider Obstetrics & Gynecology | DX: N93.9 Abnormal uterine and vaginal bleeding, unspecified (principal); N91.4 Secondary oligomenorrhea | CPT/HCPCS: 83001; 84146; 84443; 84702; 85025 ==

== ENCOUNTER → 2020-11-02 13:03 | Outpatient (BNVA) | payer MEDICARE, MEDICAID, SELFPAY | PROVIDERS: PCP Nurse Practitioner Family; Visit Provider Obstetrics & Gynecology | DX: N93.9 Abnormal uterine and vaginal bleeding, unspecified (principal) | CPT/HCPCS: 76830 ==

== ENCOUNTER → 2020-11-10 08:51 | Outpatient (BNVA) | payer MEDICARE, MEDICAID, SELFPAY | PROVIDERS: PCP Nurse Practitioner Family; Visit Provider Obstetrics & Gynecology | DX: N93.9 Abnormal uterine and vaginal bleeding, unspecified (principal); N91.2 Amenorrhea, unspecified | CPT/HCPCS: 82670 ==

== ENCOUNTER 2020-12-07 11:17 | Emergency (ER) | payer MEDICARE, MEDICAID, SELFPAY ==
[2020-12-07 12:21] VITALS: BP 136/86; PULSE 90; RESP 20; TEMP 36.8; O2SAT 96; BMI 50.1
[2020-12-07 15:56] VITALS: BP 137/80; PULSE 87; TEMP 530.9; TEMP 987.7; O2SAT 98
--- NOTE | 2020-12-07 16:06 | W.ED.RECABL ---
Documented by User: SONIA Ewing 12/08/20 07:08 HPI - Recheck/Abnormal Lab/Rx General: Chief Complaint: Recheck/Abnormal Lab/Rx Stated Complaint: ABNORMAL LABS Time Seen by Provider: 12/07/20 15:56 History of Present Illness: HPI narrative: Patient is a 30-year-old female comes to the ED to check some abnormal labs. Patient says she saw a provider 2 days ago and they did some blood work and told her that all of her labs were bad and she needs to come to the ED to be evaluated and to get some IV fluids. Patient does not know any details on the abnormal labs done by provider 2 days ago. Patient complains of having abdominal pain that is generalized for the past year and states that she also has chronic constipation as well. She also reports having some bloody stool and says that she has had it for over a year now and every time she wipes she has some red blood present. Denies any history of hemorrhoids. Denies any fever, chills, chest pain, shortness of breath, nausea/vomiting, diarrhea or dysuria or hematuria. Review of Systems Const: Denies: fever(s), chills or fatigue Eyes: Denies: change in vision or eye discomfort ENMT: Denies: throat pain, odynophagia, nasal discharge or nasal congestion Card: Denies: chest pain, palpitations, edema, swelling of feet/ankles, dyspnea on exertion or orthopnea Resp: Denies: dyspnea, productive cough or non-productive cough GI: Reports: abdominal pain, constipation and hematochezia (blood on toilet paper after she wipes); Denies: nausea, vomiting or diarrhea : Denies: flank pain, dysuria or hematuria Musc: Denies: neck pain, back pain or extremity swelling Skin/Breast: Denies: rash or new lesions Neuro: Denies: headache(s), numbness in extremities or weakness in extremities PFS ED PFSH: Family History Father Colon cancer onset unknown Hyperlipidemia Heart disease Hypertension Family/Other No problems noted. 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 Female Reproductive History: Date of last menstrual period: 04/24/19 Physical Exam Const: COMMON NORMALS: no acute distress, patient oriented x3 and alert GENERAL APPEARANCE: cooperative and comfortable HENMT: COMMON NORMALS: normocephalic HEAD & SCALP: normocephalic MOUTH: Normal oral and palatal mucosa present THROAT: posterior oropharynx normal and uvula midline Eye: COMMON NORMALS: Equal, round and reactive pupils present PUPIL: Yes Equal, round and reactive pupils present Neck/C-Spine: COMMON NORMALS: supple GENERAL: Yes normal visual inspection Resp: COMMON NORMALS: normal respiratory effort, No retractions, No use of accessory muscles and clear to auscultation bilaterally AUSCULTATION: clear to auscultation bilaterally Cardio: COMMON NORMALS: regular rate, regular rhythm, S1 normal heart sound present, S2 normal heart sound present, No gallops present (Cardio), No clicks present (Cardio), No murmurs present (Cardio) and Peripheral pulses 2+ throughout RATE: regular rate RHYTHM: regular rhythm HEART SOUNDS: S1 normal heart sound present and S2 normal heart sound present PERIPHERAL PULSES: Peripheral pulses 2+ throughout GI: COMMON NORMALS: Normal to inspection, nondistended, normoactive bowel sounds present, Soft to palpation and no masses INSPECTION: Yes central obesity PALPATION: Yes Soft to palpation and Yes Tenderness to palpation present (GI) (Mild generalized tenderness throughout abdomen. No localized tenderness.) : COMMON NORMALS: Yes no CVA tenderness BLADDER/KIDNEY EXAM: Yes no CVA tenderness Back/Pelvis: COMMON NORMALS: no CVA tenderness Extremity: COMMON NORMALS: normal to inspection Neuro: COMMON NORMALS: patient oriented x3 and moves all extremities SENSORIUM/ORIENTATION: Yes alert Skin: GENERAL SKIN EXAM: dry skin Course Vital Signs: Vital signs: Vital Signs Temperature 987.7 F H 12/07/20 15:56 Pulse Rate 68 12/07/20 19:37 Respiratory Rate 18 12/07/20 19:37 Blood Pressure 137/80 12/07/20 15:56 Pulse Oximetry 98 12/07/20 19:37 MDM - Recheck/Abnormal Lab/Rx Lab Data: Attestation: I reviewed the patient's lab results. Labs: Lab Results 12/07/20 12/07/20 12/07/20 Range/Units 16:11 16:22 16:22 WBC 11.5 H (4.0-10.0) 10^3/ uL RBC 4.65 (4.1-5.3) 10^6/u L Hgb 13.7 (11.5-15.3) g/dL Hct 42.5 (37.0-47.0) % MCV 91.4 (81-99) fL MCH 29.5 (28.0-34.0) pg MCHC 32.2 (30.0-36.0) g/dL RDW 13.8 (12.1-15.1) % Plt Count 136 (130-400) 10^3/c mm MPV 11.4 H (7.4-10.4) fL Neut % (Auto) 59.8 % Lymph % (Auto) 33.1 % [place] % (Auto) 3.4 % Eos % (Auto) 2.6 % Baso % (Auto) 0.5 % Neut # (Auto) 6.90 (1.8-7.7) 10^3/u L Lymph # (Auto) 3.8 (0.8-4.8) 10^3/u L [place] # (Auto) 0.4 (0.2-0.9) 10^3/u L Eos # (Auto) 0.3 (0.0-0.8) 10^3/u L Baso # (Auto) 0.1 (0.0-0.1) 10^3/u L Nucleated RBC % (a uto) 0 % Nucleated RBCs # 0.0 /100WBC Sodium Cancelled Potassium Cancelled Chloride Cancelled Carbon Dioxide Cancelled Anion Gap Cancelled BUN Cancelled Creatinine Cancelled GFR Calculation Cancelled Glucose Cancelled Calculated Osmolal ity Cancelled Calcium Cancelled Total Bilirubin Cancelled AST Cancelled ALT Cancelled Alkaline Phosphata se Cancelled Total Protein Cancelled Albumin Cancelled Globulin Cancelled Lipase Cancelled HCG, Qual (Negative) Urine Color Yellow (Yellow) Urine Appearance Clear (CLEAR) Urine pH 6 (5-7) Ur Specific Gravit y 1.025 (1.005-1.030) Urine Protein Neg (Negative) Urine Glucose (UA) Norm (Normal) Urine Ketones Negative (Negative) Urine Blood Neg (Negative) Urine Nitrate Negative (Negative) Urine Bilirubin 1+ H (Negative) Urine Urobilinogen 4 H (Negative) mg/dL Ur Leukocyte Jayshree ase Negative (Negative) Urine RBC None (0-2) /hpf Urine WBC 0-4 H (0-5) /hpf Ur Squamous Epith Cells 25-40 H (0-5) /hpf Amorphous Sediment Not Reportable Urine Bacteria 2+ H (NONE) /hpf 12/07/20 12/07/20 Range/Units 16:22 16:22 WBC (4.0-10.0) 10^3/ uL RBC (4.1-5.3) 10^6/u L Hgb (11.5-15.3) g/dL Hct (37.0-47.0) % MCV (81-99) fL MCH (28.0-34.0) pg MCHC (30.0-36.0) g/dL RDW (12.1-15.1) % Plt Count (130-400) 10^3/c mm MPV (7.4-10.4) fL Neut % (Auto) % Lymph % (Auto) % [place] % (Auto) % Eos % (Auto) % Baso % (Auto) % Neut # (Auto) (1.8-7.7) 10^3/u L Lymph # (Auto) (0.8-4.8) 10^3/u L [place] # (Auto) (0.2-0.9) 10^3/u L Eos # (Auto) (0.0-0.8) 10^3/u L Baso # (Auto) (0.0-0.1) 10^3/u L Nucleated RBC % (a uto) % Nucleated RBCs # /100WBC Sodium 138 Potassium 3.5 Chloride 99 Carbon Dioxide 24 Anion Gap 18.5 BUN 10 Creatinine 0.7 GFR Calculation 97.0 Glucose 85 Calculated Osmolal ity 284 L Calcium 9.4 Total Bilirubin 0.2 AST 13 ALT 14 Alkaline Phosphata se 110 H Total Protein 7.7 Albumin 4.9 Globulin 2.8 Lipase 30 HCG, Qual Negative (Negative) Urine Color (Yellow) Urine Appearance (CLEAR) Urine pH (5-7) Ur Specific Gravit y (1.005-1.030) Urine Protein (Negative) Urine Glucose (UA) (Normal) Urine Ketones (Negative) Urine Blood (Negative) Urine Nitrate (Negative) Urine Bilirubin (Negative) Urine Urobilinogen (Negative) mg/dL Ur Leukocyte Jayshree ase (Negative) Urine RBC (0-2) /hpf Urine WBC (0-5) /hpf Ur Squamous Epith Cells (0-5) /hpf Amorphous Sediment Urine Bacteria (NONE) /hpf Discharge Plan Discharge Patient Disposition: Home Clinical Impression: Abnormal laboratory test Condition: Stable Prescriptions: No Action lamotrigine 100 mg tablet 150 mg PO BID RF: 0 propranolol 20 mg tablet 20 mg PO DAILY PRNRF: 0 tizanidine [Zanaflex] 4 mg tablet 4 mg PO DIRECTED MDD 3 PRN (Reason: Muscle Spasm) RF: 0 Cymbalta 60 mg capsule,delayed release(DR/EC) 60 mg PO BID 30 Days Qty: 60 RF: 1 ibuprofen [IBU] 600 mg tablet 800 mg PO BID PRNRF: 0 lactulose 10 gram/15 mL solution 5 ml PO BID PRNRF: 0 Discharge Orders: Discharge ED (Routine); Ordered 12/07/20 Ordered By: Frank Cheema Discharge Diet: Usual diet Discharge Activity: Increase activity as tolerated Patient Instructions: Opioid Safety Activity Restrictions/Additional Instructions: Healthy diet and activity. Drink plenty of fluids. Follow-up with primary care for further instruction. Return to the ER for new concerns. Sign Out Sign Out Data: Patient Sign Out occurred on 12/07/20 at 17:15. Patient's care was discussed, and care was transferred from SONIA Ewing to Frank Cheema. Sign Out Comment: Patient comes to the ED to have some abnormal labs rechecked. Patient is nonspecific on what labs were abnormal and says she got tested 2 days ago at her primary care doctor's office and they told her to come here. She has generalized abdominal pain and constipation that is chronic and has been going on for about a year. Labs ordered and pending. KUB ordered as well. Pending lab results and KUB DC patient home.-ELIZA Last updated by Bartolo Shirley PA at 12/07/20 17:07 Coding Level of Care Code ED Director Integrated for Chg Fwd Exam Comprehensive Documented by User: CIRILO Landaverde 12/07/20 19:05 HPI - Recheck/Abnormal Lab/Rx General: Chief Complaint: Recheck/Abnormal Lab/Rx Stated Complaint: ABNORMAL LABS Time Seen by Provider: 12/07/20 15:56 [facility] ED PFSH: Family History Father Colon cancer onset unknown Hyperlipidemia Heart disease Hypertension Family/Other No problems noted. 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 Received patient from Bartolo Shirley PA-C. Plan is after labs is complete we will discharge to home with primary care follow-up. Vital Signs: Vital signs: Vital Signs Temperature 987.7 F H 12/07/20 15:56 Pulse Rate 68 12/07/20 19:37 Respiratory Rate 18 12/07/20 19:37 Blood Pressure 137/80 12/07/20 15:56 Pulse Oximetry 98 12/07/20 19:37 MDM - Recheck/Abnormal Lab/Rx MDM Narrative: Medical decision making narrative: Patient was sent into the emergency room for abnormal laboratory test. Patient states that her white count was high and her potassium was abnormal. On exam patient appears well. Patient appears no acute distress. Differential diagnosis includes malingering, abnormal laboratory value, hyperkalemia, hypokalemia. Laboratory values were unremarkable. Urinalysis was contaminated. Patient had blood cultures drawn they were outstanding. Reviewed exam with patient with recommendations for treatment follow-up and follow-up with primary care. Patient reported understanding and agreed to plan. Lab Data: Labs: Lab Results 12/07/20 12/07/20 12/07/20 Range/Units 16:11 16:22 16:22 WBC 11.5 H (4.0-10.0) 10^3/ uL RBC 4.65 (4.1-5.3) 10^6/u L Hgb 13.7 (11.5-15.3) g/dL Hct 42.5 (37.0-47.0) % MCV 91.4 (81-99) fL MCH 29.5 (28.0-34.0) pg MCHC 32.2 (30.0-36.0) g/dL RDW 13.8 (12.1-15.1) % Plt Count 136 (130-400) 10^3/c mm MPV 11.4 H (7.4-10.4) fL Neut % (Auto) 59.8 % Lymph % (Auto) 33.1 % [place] % (Auto) 3.4 % Eos % (Auto) 2.6 % Baso % (Auto) 0.5 % Neut # (Auto) 6.90 (1.8-7.7) 10^3/u L Lymph # (Auto) 3.8 (0.8-4.8) 10^3/u L [place] # (Auto) 0.4 (0.2-0.9) 10^3/u L Eos # (Auto) 0.3 (0.0-0.8) 10^3/u L Baso # (Auto) 0.1 (0.0-0.1) 10^3/u L Nucleated RBC % (a uto) 0 % Nucleated RBCs # 0.0 /100WBC Sodium Cancelled Potassium Cancelled Chloride Cancelled Carbon Dioxide Cancelled Anion Gap Cancelled BUN Cancelled Creatinine Cancelled GFR Calculation Cancelled Glucose Cancelled Calculated Osmolal ity Cancelled Calcium Cancelled Total Bilirubin Cancelled AST Cancelled ALT Cancelled Alkaline Phosphata se Cancelled Total Protein Cancelled Albumin Cancelled Globulin Cancelled Lipase Cancelled HCG, Qual (Negative) Urine Color Yellow (Yellow) Urine Appearance Clear (CLEAR) Urine pH 6 (5-7) Ur Specific Gravit y 1.025 (1.005-1.030) Urine Protein Neg (Negative) Urine Glucose (UA) Norm (Normal) Urine Ketones Negative (Negative) Urine Blood Neg (Negative) Urine Nitrate Negative (Negative) Urine Bilirubin 1+ H (Negative) Urine Urobilinogen 4 H (Negative) mg/dL Ur Leukocyte Jayshree ase Negative (Negative) Urine RBC None (0-2) /hpf Urine WBC 0-4 H (0-5) /hpf Ur Squamous Epith Cells 25-40 H (0-5) /hpf Amorphous Sediment Not Reportable Urine Bacteria 2+ H (NONE) /hpf 12/07/20 12/07/20 Range/Units 16:22 16:22 WBC (4.0-10.0) 10^3/ uL RBC (4.1-5.3) 10^6/u L Hgb (11.5-15.3) g/dL Hct (37.0-47.0) % MCV (81-99) fL MCH (28.0-34.0) pg MCHC (30.0-36.0) g/dL RDW (12.1-15.1) % Plt Count (130-400) 10^3/c mm MPV (7.4-10.4) fL Neut % (Auto) % Lymph % (Auto) % [place] % (Auto) % Eos % (Auto) % Baso % (Auto) % Neut # (Auto) (1.8-7.7) 10^3/u L Lymph # (Auto) (0.8-4.8) 10^3/u L [place] # (Auto) (0.2-0.9) 10^3/u L Eos # (Auto) (0.0-0.8) 10^3/u L Baso # (Auto) (0.0-0.1) 10^3/u L Nucleated RBC % (a uto) % Nucleated RBCs # /100WBC Sodium 138 Potassium 3.5 Chloride 99 Carbon Dioxide 24 Anion Gap 18.5 BUN 10 Creatinine 0.7 GFR Calculation 97.0 Glucose 85 Calculated Osmolal ity 284 L Calcium 9.4 Total Bilirubin 0.2 AST 13 ALT 14 Alkaline Phosphata se 110 H Total Protein 7.7 Albumin 4.9 Globulin 2.8 Lipase 30 HCG, Qual Negative (Negative) Urine Color (Yellow) Urine Appearance (CLEAR) Urine pH (5-7) Ur Specific Gravit y (1.005-1.030) Urine Protein (Negative) Urine Glucose (UA) (Normal) Urine Ketones (Negative) Urine Blood (Negative) Urine Nitrate (Negative) Urine Bilirubin (Negative) Urine Urobilinogen (Negative) mg/dL Ur Leukocyte Jayshree ase (Negative) Urine RBC (0-2) /hpf Urine WBC (0-5) /hpf Ur Squamous Epith Cells (0-5) /hpf Amorphous Sediment Urine Bacteria (NONE) /hpf Discharge Plan Discharge Patient Disposition: Home Clinical Impression: Abnormal laboratory test Condition: Stable Prescriptions: No Action lamotrigine 100 mg tablet 150 mg PO BID RF: 0 propranolol 20 mg tablet 20 mg PO DAILY PRNRF: 0 tizanidine [Zanaflex] 4 mg tablet 4 mg PO DIRECTED MDD 3 PRN (Reason: Muscle Spasm) RF: 0 Cymbalta 60 mg capsule,delayed release(DR/EC) 60 mg PO BID 30 Days Qty: 60 RF: 1 ibuprofen [IBU] 600 mg tablet 800 mg PO BID PRNRF: 0 lactulose 10 gram/15 mL solution 5 ml PO BID PRNRF: 0 Discharge Orders: Discharge ED (Routine); Ordered 12/07/20 Ordered By: Frank Cheema Discharge Diet: Usual diet Discharge Activity: Increase activity as tolerated Patient Instructions: Opioid Safety Activity Restrictions/Additional Instructions: Healthy diet and activity. Drink plenty of fluids. Follow-up with primary care for further instruction. Return to the ER for new concerns. Sign Out Sign Out Data: Patient Sign Out occurred on 12/07/20 at 17:15. Patient's care was discussed, and care was transferred from SONIA Ewing to Frank Cheema. Sign Out Comment: Patient comes to the ED to have some abnormal labs rechecked. Patient is nonspecific on what labs were abnormal and says she got tested 2 days ago at her primary care doctor's office and they told her to come here. She has generalized abdominal pain and constipation that is chronic and has been going on for about a year. Labs ordered and pending. KUB ordered as well. Pending lab results and KUB DC patient home.-ELIZA Last updated by Bartolo Shirley PA at 12/07/20 17:07 Coding Level of Care Code ED Director Integrated for Chg Fwd Exam Comprehensive
[2020-12-07 16:33] LABS: Basophils # 0.1 10^3/uL (0.0-0.1); Basophils % 0.5 %; Eosinophils # 0.3 10^3/uL (0.0-0.8); Eosinophils % 2.6 %; Hematocrit 42.5 % (37.0-47.0); Hemoglobin 13.7 g/dL (11.5-15.3); Lymphocytes # 3.8 10^3/uL (0.8-4.8); Lymphocytes % 33.1 %; Mean Corpuscular HGB Conc 32.2 g/dL (30.0-36.0); Mean Corpuscular Hemoglobin 29.5 pg (28.0-34.0); Mean Corpuscular Volume 91.4 fL (81-99); Mean Platelet Volume 11.4 fL (7.4-10.4); Monocytes # 0.4 10^3/uL (0.2-0.9); Monocytes % 3.4 %; Neutrophils % 59.8 %; Nucleated Red Blood Cells % 0 %; Platelet Count 136 10^3/cmm (130-400); Positive C 1; Red Blood Count 4.65 10^6/uL (4.1-5.3); Red Cell Distribution Width 13.8 % (12.1-15.1); White Blood Count 11.5 10^3/uL (4.0-10.0)
[2020-12-07] MEDS: sodium chloride 0.9% 1,000 ML 999 ML IV (16:35)
[2020-12-07 16:44] LABS: Bilirubin Urine 1+ (Negative); Blood Urine Neg (Negative); Glucose Urine UA Norm (Normal); Ketones Urine Negative (Negative); Leukocyte Esterase Urine Negative (Negative); Nitrate Urine Negative (Negative); Protein Urine Neg (Negative); Specific Gravity, Urine 1.025 (1.005-1.030); Urine Appearance Clear (CLEAR); Urine Color Yellow (Yellow); Urobilinogen Urine 4 mg/dL (Negative); pH Urine 6 (5-7)
[2020-12-07 16:45] LABS: Bacteria Urine 2+ /hpf; Squamous Epithelial Cell Urine 25-40 /hpf (0-5); WBC Urine 0-4 /hpf (0-5)
[2020-12-07 16:46] LABS: Add Urine Culture? No
--- NOTE | 2020-12-07 16:50 | XRR_ITS ---
PROCEDURE INFORMATION: Exam: XR Abdomen Exam date and time: 12/07/2020 4:50 PM Age: 30 years old Clinical indication: Constipation; Additional info: Constipation, generalized abdominal pain TECHNIQUE: Imaging protocol: XR of the abdomen. Views: Frontal supine view of the abdomen. 1 View. COMPARISON: CT abdomen pelvis w con* [id number] 11/22/2019 2:14 PM FINDINGS: Gastrointestinal tract: Normal. No bowel dilation. Moderate colonic stool burden. Bones/joints: Unremarkable. XR/XR KUB portable [id number] IMPRESSION: No acute findings.
[2020-12-07 16:51] LABS: HCG, Serum Qual Negative (Negative)
[2020-12-07 18:58] LABS: Alanine Aminotransferase 14 U/L (0-33); Albumin Level 4.9 g/dL (3.5-5.2); Alkaline Phosphatase 110 IU/L (35-105); Anion Gap 18.5 (5-19); Aspartate Amino Transferase 13 U/L (0-32); Blood Urea Nitrogen 10 mg/dL (6-20); Calcium 9.4 mg/dL (8.5-10.5); Carbon Dioxide 24 mmol/L (22-29); Chloride 99 mmol/L (98-107); Globulin 2.8 g/dL (1.3-4.6); Glucose 85 mg/dL (65-115); Lipase 30 U/L (13-60); Osmolality Calculated 284 mOsm/kg (285-295); Potassium 3.5 mmol/L (3.5-5.1); Sodium 138 mmol/L (136-145); Total Bilirubin 0.2 mg/dL (0.15-1.2); Total Protein 7.7 g/dL (6.6-8.7)
[2020-12-07 19:37] VITALS: PULSE 68; RESP 18; O2SAT 98
== END 2020-12-07 19:39 | disposition home or self-care (01) ==
PROVIDERS: Physician Assistant; Emergency Provider Nurse Practitioner Family
DX: R79.9 Abnormal finding of blood chemistry, unspecified (principal); F17.210 Nicotine dependence, cigarettes, uncomplicated
CPT/HCPCS: 74018; 80053; 81001; 83690; 84703; 85025; 87040; 96360; 99284; J7030

== ENCOUNTER 2021-01-27 13:53 | Inpatient (IN) | payer MEDICARE, MEDICAID, SELFPAY ==
[2021-01-27 14:39] VITALS: BP 137/82; PULSE 76; RESP 18; TEMP 36.5; O2SAT 98; BMI 34.0
[2021-01-27 19:52] VITALS: BP 132/100; PULSE 82; RESP 16; O2SAT 96
--- NOTE | 2021-01-27 20:58 | W.ED.GENADLT ---
Documented by User: CIRILO Gifford 01/27/21 21:10 HPI - General Adult General: Chief complaint: General Medical Stated complaint: SWELLING AND RASH TO GROIN AREA Time Seen by Provider: 01/27/21 19:53 History of Present Illness: HPI narrative: Patient arrives via ambulance. Patient says she is seeing snakes and thought maybe when it bit her in her groin area. Says she is also depressed and that she is suicidal and she is afraid if she goes home she will take her life. MD complaint: Suicidal ideation Onset (ago): day(s) Associated symptoms: Deny rash or vomiting Treatments prior to arrival: other (Has used some meth and marijuana.) Review of Systems Eyes: Denies: eye discharge ENMT: Denies: throat pain, oral sores or nasal congestion Resp: Reports: non-productive cough; Denies: wheezing or stridor GI: Denies: vomiting or diarrhea Skin/Breast: Reports: skin tenderness (Inner thighs for years); Denies: rash Psych: Reports: depression, sleeping more, hopelessness, visual hallucinations and suicidal ideation PFSH ED PFSH: Family History Father Colon cancer onset unknown Hyperlipidemia Heart disease Hypertension Family/Other No problems noted. 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 Female Reproductive History: Date of last menstrual period: 04/24/19 Physical Exam Const: COMMON NORMALS: no acute distress (Child appears very well is playful in no distress) GENERAL APPEARANCE: cooperative HENMT: COMMON NORMALS: normocephalic, external ears normal, EAC's normal, TM's normal bilaterally and Normal external nose present HEAD & SCALP: normal to inspection and normocephalic FACE & SINUS: normal facial exam NOSE: Normal external nose present and No nasal discharge present EXTERNAL EAR: Yes external ears normal EXTERNAL AUDITORY CANAL: EAC's normal TYMPANIC MEMBRANE: TM's normal bilaterally MOUTH: Normal oral and palatal mucosa present THROAT: posterior oropharynx normal Eye: COMMON NORMALS: conjunctivae normal CONJUNCTIVA: Yes conjunctivae normal Lymph: LYMPHATIC: no lymphadenopathy noted Chest: COMMONS NORMALS: normal inspection of the chest Resp: COMMON NORMALS: normal respiratory effort, No retractions, No use of accessory muscles and clear to auscultation bilaterally AUSCULTATION: clear to auscultation bilaterally Cardio: COMMON NORMALS: regular rate and regular rhythm RATE: regular rate RHYTHM: regular rhythm GI: COMMON NORMALS: Normal to inspection, nondistended, normoactive bowel sounds present Extremity: COMMON NORMALS: normal to inspection Psych: COMMON NORMALS: mental status grossly normal, Normal thought process present, cooperative and speech normal ATTITUDE: Yes calm ACTIVITY/MOTOR BEHAVIOR: Yes appropriate eye contact SPEECH: Yes normal speech MOOD & AFFECT: Yes depressed mood THOUGHT PROCESS: Normal thought process present THOUGHT CONTENT: Yes Normal thought content present Skin: COMMON NORMALS: no rashes or lesions noted NARRATIVE SKIN EXAM: Old scarring noted to her inner thighs. No redness swelling snakebite or other problems noted. My exam was chaperoned by [place]. GENERAL SKIN EXAM: no rashes or lesions noted Course Vital Signs: Vital signs: Vital Signs Temperature 97.7 F 01/27/21 14:39 Pulse Rate 82 01/27/21 19:52 Respiratory Rate 16 01/27/21 19:52 Blood Pressure 132/100 01/27/21 19:52 Pulse Oximetry 96 01/27/21 19:52 [facility] - General Adult Lab Data: Labs: Lab Results 01/27/21 01/27/21 01/27/21 20:45 20:45 20:45 WBC 12.3 10^3/uL H 10 ^3/uL (4.0-10.0) RBC 4.54 10^6/uL 10^6 /uL (4.1-5.3) Hgb 13.4 g/dL g/dL (11.5-15.3) Hct 41.7 % % (37.0-47.0) MCV 91.9 fl fl (81-99) MCH 29.5 pg pg (28.0-34.0) MCHC 32.1 g/dL g/dL (30.0-36.0) RDW 13.5 % % (12.1-15.1) Plt Count 276 10^3/cmm 10^3 /cmm (130-400) MPV 10.5 fL H fL (7.4-10.4) Neut % (Auto) 63.7 % % Lymph % (Auto) 28.6 % % [place] % (Auto) 3.7 % % Eos % (Auto) 3.4 % % Baso % (Auto) 0.4 % % Neut # (Auto) 7.82 10^3/uL H 10 ^3/uL (1.8-7.7) Lymph # (Auto) 3.5 10^3/uL 10^3/ uL (0.8-4.8) [place] # (Auto) 0.5 10^3/uL 10^3/ uL (0.2-0.9) Eos # (Auto) 0.4 10^3/uL 10^3/ uL (0.0-0.8) Baso # (Auto) 0.1 10^3/uL 10^3/ uL (0.0-0.1) Nucleated RBC % (a uto) 0 % % Nucleated RBCs # 0.0 /100WBC /100W BC Sodium 138 mmol/L mmol/L (136-145) Potassium 3.3 mmol/L L mmol /L (3.5-5.1) Chloride 102 mmol/L mmol/L (98-107) Carbon Dioxide 25 mmol/L mmol/L (22-29) Anion Gap 14.3 (5-19) BUN 8 mg/dL mg/dL (6-20) Creatinine 0.7 mg/dL mg/dL (0.5-0.9) GFR Calculation 97.0 mL/min mL/mi n (90-130) Glucose 79 mg/dL mg/dL (65-115) Calculated Osmolal ity 283 mOsm/kg L mOs m/kg (285-295) Calcium 9.3 mg/dL mg/dL (8.5-10.5) Total Bilirubin 0.3 mg/dL mg/dL (0.15-1.2) AST 12 U/L U/L (0-32) ALT 18 U/L U/L (0-33) Alkaline Phosphata se 90 IU/L IU/L (35-105) Total Protein 7.2 g/dL g/dL (6.6-8.7) Albumin 4.2 g/dL g/dL (3.5-5.2) Globulin 3.0 g/dL g/dL (1.3-4.6) Urine Color Yellow (Yellow) Urine Appearance Sl hazy (CLEAR) Urine pH 5 (5-7) Ur Specific Gravit y 1.015 (1.005-1.030) Urine Protein Neg (Negative) Urine Glucose (UA) Norm (Normal) Urine Ketones Negative (Negative) Urine Blood Neg (Negative) Urine Nitrate Negative (Negative) Urine Bilirubin Neg (Negative) Urine Urobilinogen Norm mg/dL mg/dL (Negative) Ur Leukocyte Jayshree ase Negative (Negative) Amorphous Sediment Not Reportable Salicylates < 0.3 mg/dL L mg/ dL (3-10) Urine Opiates Scre en Acetaminophen < 5.0 ug/mL L ug/ mL (10-30) Ur Barbiturates Sc reen Ur Phencyclidine S crn Ur Amphetamines Sc reen U Benzodiazepines Scrn Urine Cocaine Scre en U Marijuana (THC) Screen 01/27/21 20:45 WBC RBC Hgb Hct MCV MCH MCHC RDW Plt Count MPV Neut % (Auto) Lymph % (Auto) [place] % (Auto) Eos % (Auto) Baso % (Auto) Neut # (Auto) Lymph # (Auto) [place] # (Auto) Eos # (Auto) Baso # (Auto) Nucleated RBC % (a uto) Nucleated RBCs # Sodium Potassium Chloride Carbon Dioxide Anion Gap BUN Creatinine GFR Calculation Glucose Calculated Osmolal ity Calcium Total Bilirubin AST ALT Alkaline Phosphata se Total Protein Albumin Globulin Urine Color Urine Appearance Urine pH Ur Specific Gravit y Urine Protein Urine Glucose (UA) Urine Ketones Urine Blood Urine Nitrate Urine Bilirubin Urine Urobilinogen Ur Leukocyte Jayshree ase Amorphous Sediment Salicylates Urine Opiates Scre en Negative ng/mL ng /mL (Negative) Acetaminophen Ur Barbiturates Sc reen Negative ng/mL ng /mL (Negative) Ur Phencyclidine S crn Negative ng/mL ng /mL (Negative) Ur Amphetamines Sc reen Positive ng/mL H ng/mL (Negative) U Benzodiazepines Scrn Negative ng/mL ng /mL (Negative) Urine Cocaine Scre en Negative ng/mL ng /mL (Negative) U Marijuana (THC) Screen Positive ng/mL H ng/mL (Negative) Discharge Plan Discharge Patient Disposition: Admitted As Inpatient Clinical Impression: Suicidal ideation, Borderline personality disorder Condition: Stable Coding Level of Care Code ED Nutrition Technician for Adelia Fwd Exam Comprehensive Documented by User: Mike Moon MD 01/27/21 21:42 HPI - General Adult General: Chief complaint: General Medical Stated complaint: SWELLING AND RASH TO GROIN AREA Time Seen by Provider: 01/27/21 19:53 PFSH ED PFSH: Family History Father Colon cancer onset unknown Hyperlipidemia Heart disease Hypertension Family/Other No problems noted. 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 Course Vital Signs: Vital signs: Vital Signs Temperature 97.7 F 01/27/21 14:39 Pulse Rate 82 01/27/21 19:52 Respiratory Rate 16 01/27/21 19:52 Blood Pressure 132/100 01/27/21 19:52 Pulse Oximetry 96 01/27/21 19:52 MDM - General Adult MDM Narrative: Medical decision making narrative: Discussed with Israel Bergeron and agree with plan of care. Will admit to neuropsych for suicidal ideations and borderline personality disorder. Dr. Fry accepts Lab Data: Labs: Lab Results 01/27/21 01/27/21 01/27/21 20:45 20:45 20:45 WBC 12.3 10^3/uL H 10 ^3/uL (4.0-10.0) RBC 4.54 10^6/uL 10^6 /uL (4.1-5.3) Hgb 13.4 g/dL g/dL (11.5-15.3) Hct 41.7 % % (37.0-47.0) MCV 91.9 fl fl (81-99) MCH 29.5 pg pg (28.0-34.0) MCHC 32.1 g/dL g/dL (30.0-36.0) RDW 13.5 % % (12.1-15.1) Plt Count 276 10^3/cmm 10^3 /cmm (130-400) MPV 10.5 fL H fL (7.4-10.4) Neut % (Auto) 63.7 % % Lymph % (Auto) 28.6 % % [place] % (Auto) 3.7 % % Eos % (Auto) 3.4 % % Baso % (Auto) 0.4 % % Neut # (Auto) 7.82 10^3/uL H 10 ^3/uL (1.8-7.7) Lymph # (Auto) 3.5 10^3/uL 10^3/ uL (0.8-4.8) [place] # (Auto) 0.5 10^3/uL 10^3/ uL (0.2-0.9) Eos # (Auto) 0.4 10^3/uL 10^3/ uL (0.0-0.8) Baso # (Auto) 0.1 10^3/uL 10^3/ uL (0.0-0.1) Nucleated RBC % (a uto) 0 % % Nucleated RBCs # 0.0 /100WBC /100W BC Sodium 138 mmol/L mmol/L (136-145) Potassium 3.3 mmol/L L mmol /L (3.5-5.1) Chloride 102 mmol/L mmol/L (98-107) Carbon Dioxide 25 mmol/L mmol/L (22-29) Anion Gap 14.3 (5-19) BUN 8 mg/dL mg/dL (6-20) Creatinine 0.7 mg/dL mg/dL (0.5-0.9) GFR Calculation 97.0 mL/min mL/mi n (90-130) Glucose 79 mg/dL mg/dL (65-115) Calculated Osmolal ity 283 mOsm/kg L mOs m/kg (285-295) Calcium 9.3 mg/dL mg/dL (8.5-10.5) Total Bilirubin 0.3 mg/dL mg/dL (0.15-1.2) AST 12 U/L U/L (0-32) ALT 18 U/L U/L (0-33) Alkaline Phosphata se 90 IU/L IU/L (35-105) Total Protein 7.2 g/dL g/dL (6.6-8.7) Albumin 4.2 g/dL g/dL (3.5-5.2) Globulin 3.0 g/dL g/dL (1.3-4.6) Urine Color Yellow (Yellow) Urine Appearance Sl hazy (CLEAR) Urine pH 5 (5-7) Ur Specific Gravit y 1.015 (1.005-1.030) Urine Protein Neg (Negative) Urine Glucose (UA) Norm (Normal) Urine Ketones Negative (Negative) Urine Blood Neg (Negative) Urine Nitrate Negative (Negative) Urine Bilirubin Neg (Negative) Urine Urobilinogen Norm mg/dL mg/dL (Negative) Ur Leukocyte Jayshree ase Negative (Negative) Amorphous Sediment Not Reportable Salicylates < 0.3 mg/dL L mg/ dL (3-10) Urine Opiates Scre en Acetaminophen < 5.0 ug/mL L ug/ mL (10-30) Ur Barbiturates Sc reen Ur Phencyclidine S crn Ur Amphetamines Sc reen U Benzodiazepines Scrn Urine Cocaine Scre en U Marijuana (THC) Screen 01/27/21 20:45 WBC RBC Hgb Hct MCV MCH MCHC RDW Plt Count MPV Neut % (Auto) Lymph % (Auto) [place] % (Auto) Eos % (Auto) Baso % (Auto) Neut # (Auto) Lymph # (Auto) [place] # (Auto) Eos # (Auto) Baso # (Auto) Nucleated RBC % (a uto) Nucleated RBCs # Sodium Potassium Chloride Carbon Dioxide Anion Gap BUN Creatinine GFR Calculation Glucose Calculated Osmolal ity Calcium Total Bilirubin AST ALT Alkaline Phosphata se Total Protein Albumin Globulin Urine Color Urine Appearance Urine pH Ur Specific Gravit y Urine Protein Urine Glucose (UA) Urine Ketones Urine Blood Urine Nitrate Urine Bilirubin Urine Urobilinogen Ur Leukocyte Jayshree ase Amorphous Sediment Salicylates Urine Opiates Scre en Negative ng/mL ng /mL (Negative) Acetaminophen Ur Barbiturates Sc reen Negative ng/mL ng /mL (Negative) Ur Phencyclidine S crn Negative ng/mL ng /mL (Negative) Ur Amphetamines Sc reen Positive ng/mL H ng/mL (Negative) U Benzodiazepines Scrn Negative ng/mL ng /mL (Negative) Urine Cocaine Scre en Negative ng/mL ng /mL (Negative) U Marijuana (THC) Screen Positive ng/mL H ng/mL (Negative) Discharge Plan Discharge Patient Disposition: Admitted As Inpatient Clinical Impression: Suicidal ideation, Borderline personality disorder Condition: Stable Coding Level of Care Code ED Nutrition Technician for Adelia Fwlive Exam Comprehensive
[2021-01-27 21:20] LABS: Basophils # 0.1 10^3/uL (0.0-0.1); Basophils % 0.4 %; Eosinophils # 0.4 10^3/uL (0.0-0.8); Eosinophils % 3.4 %; Hematocrit 41.7 % (37.0-47.0); Hemoglobin 13.4 g/dL (11.5-15.3); Lymphocytes # 3.5 10^3/uL (0.8-4.8); Lymphocytes % 28.6 %; Mean Corpuscular HGB Conc 32.1 g/dL (30.0-36.0); Mean Corpuscular Hemoglobin 29.5 pg (28.0-34.0); Mean Corpuscular Volume 91.9 fl (81-99); Mean Platelet Volume 10.5 fL (7.4-10.4); Monocytes # 0.5 10^3/uL (0.2-0.9); Monocytes % 3.7 %; Neutrophils # 7.82 10^3/uL (1.8-7.7); Neutrophils % 63.7 %; Nucleated Red Blood Cells % 0 %; Platelet Count 276 10^3/cmm (130-400); Red Blood Count 4.54 10^6/uL (4.1-5.3); Red Cell Distribution Width 13.5 % (12.1-15.1); White Blood Count 12.3 10^3/uL (4.0-10.0)
[2021-01-27 21:25] LABS: Add Urine Microscopic? YES; Bilirubin Urine Neg (Negative); Blood Urine Neg (Negative); Glucose Urine UA Norm (Normal); Ketones Urine Negative (Negative); Leukocyte Esterase Urine Negative (Negative); Nitrate Urine Negative (Negative); Protein Urine Neg (Negative); Specific Gravity, Urine 1.015 (1.005-1.030); Urine Appearance SL Hazy (CLEAR); Urine Color Yellow (Yellow); Urobilinogen Urine Norm (Negative); pH Urine 5 (5-7)
[2021-01-27 21:28] LABS: Amphetamines Screen Urine Positive (Negative); Barbiturates Screen Urine Negative (Negative); Benzodiazepines Screen Urine Negative (Negative); Cocaine Screen Urine Negative (Negative); Opiate Screen Urine Negative (Negative); PCP Screen Urine Negative (Negative); THC Screen Urine Positive (Negative)
[2021-01-27 21:35] LABS: Alanine Aminotransferase 18 U/L (0-33); Albumin Level 4.2 g/dL (3.5-5.2); Alkaline Phosphatase 90 IU/L (35-105); Anion Gap 14.3 (5-19); Aspartate Amino Transferase 12 U/L (0-32); Blood Urea Nitrogen 8 mg/dL (6-20); Calcium 9.3 mg/dL (8.5-10.5); Carbon Dioxide 25 mmol/L (22-29); Chloride 102 mmol/L (98-107); Glucose 79 mg/dL (65-115); Osmolality Calculated 283 mOsm/kg (285-295); Potassium 3.3 mmol/L (3.5-5.1); Sodium 138 mmol/L (136-145); Total Bilirubin 0.3 mg/dL (0.15-1.2); Total Protein 7.2 g/dL (6.6-8.7)
[2021-01-27 21:37] LABS: Acetaminophen < 5.0 ug/mL (10-30); Salicylate < 0.3 mg/dL (3-10)
[2021-01-27 21:40] LABS: Add Urine Culture? No; Bacteria Urine 2+ /hpf; RBC Urine 0-4 /hpf (0-2); Squamous Epithelial Cell Urine 40-55 /hpf (0-5); WBC Urine 0-4 /hpf (0-5)
--- NOTE | 2021-01-27 22:01 | PC.NURSE ---
pt asked when i was doing her assessment when we would be admitting her to the psych unit. i asked her why she thought she needed to go to the unit and pt stated that it was 'because she was seeing snakes and stuff' i informed Israel HOOKER OFF and when Israel spoke to her pt stated to him she thought she would harm herself if she went home.
[2021-01-27 22:53] VITALS: BP 132/100; PULSE 82; RESP 16; TEMP 36.5; O2SAT 96
[2021-01-27] MEDS: hyDROXYzine 25 mg Capsule 50 MG PO (23:38)
[2021-01-27] MEDS: lamoTRIgine 100 mg Tablet 150 MG PO (23:40)
[2021-01-27] MEDS: duloxetine 60 mg Capsule PO (23:42)
[2021-01-27] MEDS: tizanidine 4 mg Tablet PO (23:43)
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
--- NOTE | 2021-01-28 02:57 | PC.NURSE ---
PRN Vistaril 50mg PO given for anxiety @[id number]. Follow up assessment, medication effective. Pt resting
[2021-01-28 06:00] VITALS: BP 134/90; PULSE 73; RESP 18; TEMP 36.7; O2SAT 96
--- NOTE | 2021-01-28 07:35 | PM.NHP ---
Providers/Chief Complaint Admitting Physician: Bismark Fry MD Chief Complaint: SWELLING AND RASH TO GROIN AREA HPI NPU History of Present Illness Dena Greene is a 30 year old female who presented to the emergency department with the following report: Chief complaint: General Medical Stated complaint: SWELLING AND RASH TO GROIN AREA Time Seen by Provider: 01/27/21 19:53 History of Present Illness: HPI narrative: Patient arrives via ambulance. Patient says she is seeing snakes and thought maybe when it bit her in her groin area. Says she is also depressed and that she is suicidal and she is afraid if she goes home she will take her life. complaint: Suicidal ideation Onset (ago): day(s) Associated symptoms: Deny rash or vomiting Treatments prior to arrival: other (Has used some meth and marijuana.). She was admitted to the neuropsychiatric unit for definitive treatment of those issues. She presents this morning reporting that she was doing okay and she would like to just rest. We discussed the importance of as being and have a conversation about with going on to the we can be of assistance. She endorsed that she been taking her medication properly and that she has had past psychiatric stays here. We reviewed her last note and excerpt is included below for context. In that presentation like this she was resistant to speaking initially. This appears likely secondary to being tired secondary to stimulant withdrawal. She reluctantly acknowledged that there may have been some drug use but seemed ambivalent about talking about it and somewhat annoyed that it has been brought up. We discussed the risk-benefit alternatives of continuing her current medications and she understood and agreed proceed as documented in this note. Otherwise she denied to being significant changes recently could not give any accounting for what her substance use has been like since her last hospitalization. She reported she would be able to talk more in the morning. Per her 05/17/2019 [facility] inpatient psychiatric evaluation: History of Present Illness Dena Greene is a 28 year old female who presents today reporting that she is taking her medications as prescribed and that this represents a ongoing family conflict that escalated to a point that she was so angry that she had concerns about self-harm. She reports that she never did it and wasn't going to do it but she was worried. She also had a mild to moderate case of conjunctivitis that has resolved. She reports that she had been feeling crappy and she feels like that may have also contributed to her reaction. She denies any thoughts of lethality today. She reports that her previous evaluations psychosocial representation of her life currently is unchanged. We reviewed her past recent hospitalizations that can be seen below. This is her fourth hospitalization in a year. She reports that she feels her medications are working fine and that she sometimes doesn't manage her emotions well. We discussed the risks benefits and alternatives of increasing the Lamictal and she understood and agreed to proceed as is documented in this note. Her April eval: History of Present Illness Date of Service: Apr 12, 2019 Chief Complaint: I am having a really rough time. HPI: The patient presents today reporting that she is not really sure what is going on. She endorses that she has been struggling with having strange thoughts, being confused, feeling like she is hearing things and seeing things, and feeling paranoid. She reports that she has had success with Depakote and that she had not had access to her medications. She reports that having them back is making her feel better. She endorses a history of hospitalizations and poor follow-up. She is a very poor historian, dosing off during the interview. We agreed that we would try to delve into some of her history more tomorrow. PSYCHIATRIC HISTORY: As above. Significant history of hospitalizations both here and elsewhere. She is on multiple medications. SUBSTANCE ABUSE HISTORY: Significant history of methamphetamine and other drugs. Positive drug screen during this visit. She currently is appearing to be withdrawing from methamphetamine. HISTORY OF PRESENT ILLNESS Chief Complaint: ANXIOUS and AGITATED, DELUSIONAL and HALLUCINATIONS. This started today. (28 yo Female presents to ED with complaint of not sleeping, hallucinations, delusions, and bizarre behavior. Pt is thrashing around in the bed and making nonsensical statements. Pt does not answer questions appropriately. Per EMS, the patient was found in a yard with no pants on.). No situational problems or recent drug use or alcohol consumption. She has not exhibited a behavior change, was not found wandering and is compliant with medication. Has exhibited unusual behavior but been eating or not been depressed. Has not been sleeping. She has had anxiety, delusions and hallucinations. No anger, paranoia, suicidal thoughts or self-injury inflicted. The symptoms are described as severe. No injury is present. Similar symptoms previously. None. Recent medical care: Seen for in ED on 02/06/19 for back pain DX Acute and chronic lumbar back pain. REVIEW OF SYSTEMS Unobtainable due to patient's altered mental status. No difficulty breathing. PAST HISTORY See nurses notes. Hypertension. Lung disease. Neurological disease. Other disease. Asthma. Bronchitis. Hyperglycemia. Hypokalemia. History of migraine headaches. Hepatitis. Constipation. Ovarian cyst. Vaginal bleeding. Urinary tract infection. Pyelonephritis. Sinus problems. Otitis media. Dental abscess. Dental caries. Dental pain. Methicillin-resistant Staphylococcal infection. Folliculitis. Back pain. Anxiety. Bipolar disorder. Depression. Schizophrenia and psychosis. Insomnia. Previous suicide attempts. Substance abuse. ( Lifestyle / Substance Problems). ( Atypical Chest Pain, Abscess). ( Sprain, Suicidal Ideation, Sinusitis, Skin Rash). ( Myofascial Strain). ( Contusion, Costochondritis, Chest Pain). ( Vaginitis). ( Post-Op Complications, Post-Op Wound Dehiscence). ( Fibula Fracture). ( Healing Abscess, Hyperventilation, Hives). Surgeries: Adenoidectomy. Tympanostomy tube placement. Tonsillectomy. Tubal ligation. (GLAND REMOVED BETWEEN THIGHS). SOCIAL HISTORY Current every day smoker. Alcohol use. (unable to obtain). No drug use. ADDITIONAL NOTES The nursing notes have been reviewed. PHYSICAL EXAM Vital Signs: 04/11/2019 19:58 BP: 144/98. HR: 92. RR: 18. O2 saturation: 97%. Temp: 98.4 F. Appearance: Alert. In distress. Appearance is abnormal. Patient is in moderate distress. Is disheveled. Anxious. Eyes: Pupils equal, round and reactive to light. Neck: Normal inspection. Neck supple. CVS: Normal heart rate and rhythm. Heart sounds normal. Respiratory: Breath sounds normal. Chest nontender. Abdomen: Soft and nontender. Back: No tenderness. Skin: Skin warm and dry. Normal skin color. Normal skin turgor. (multiple shallow skin sores consistent with methamphetamine use). Extremities: Extremities exhibit normal ROM. No lower extremity edema. Psych / Neuro: Mood and affect normal. Speech is incoherent and inappropriate. Cognition not normal. The patient is disoriented. Thought content not normal. Thought process not normal. The patient exhibits altered thought processes. Appears to have hallucinations and delusions. Insight and judgement not normal. The patient does not appear to understand hers illness. No motor deficit. No sensory deficit. Disoriented. LABS, X-RAYS, AND EKG Laboratory Tests: Laboratory tests have been ordered, with results reviewed and considered in the medical decision making process. Urinalysis: (MORRO: 04/11/2019 20:57)( MsgRcvd 04/11/2019 21:29) Completed From psychiatric evaluation earlier this year: History of Present Illness Date of Service: May 17, 2018 Chief Complaint: I had a breakdown I guess. HPI: The patient is a 27-year-old female admitted voluntarily for suicidal and homicidal ideation towards her mother. When asked about any particular trigger yesterday, the patient reports I don't know she states that she has been having bilateral ear pain X3 weeks and hyperacusis and GARCIA. Pt reports that her mother talks too much and has been yelling at her frequently over the past 2 weeks. I felt like killin' my mom. She wouldn't be quiet and my ears was hurtin really bad. The patient has minimal input during interview. She does report irritability and depression all the time and having SI intermittently I was workin' on it coming up with a plan when brother called police. She also endorses some problems with insomnia or hypersomnolence, fatigue, poor appetite, feeling helpless. She denies any visual/auditory/tactile hallucinations but does endorse feeling helpless and endorsing some possible somatic delusions of contamination. Reports I just feel really dirty. I'm planning dirt out of my skin. She is picking her cuticles and face throughout the interview. She denies any overt paranoia but does endorse some ongoing chronic PTSD symptoms which she does not wish to discuss in detail. She reports some vague intermittent nightmares as well as chronic hypervigilance. Psychiatric review of systems: As above. Patient does have established history of PTSD including flashbacks of trauma childhood and nightmares hypervigilance, increased startle, avoidance of triggers, intrusive memories. Denies history of manic episode including periods of hyper-/irritable mood with decreased need for sleep and risky behaviors. Past psychiatric history: Patient has a history of 4 prior NPU admissions in the context of suicidal/homicidal ideation and methamphetamine/cannabis abuse. The patient has had a prior diagnosis of bipolar disorder versus schizophrenia on acting injectable Abilify and history of noncompliance with medication. Past medications: BuSpar/hydroxyzine not helpful for anxiety, Zyprexa somewhat helpful for anxiety. Reports recently intermittently taking Zyprexa/Lamictal/Cymbalta. Past medical history: Numerous skin picking lesions, history of Hypertension, asthma, history of recurrent hypokalemia, history of migraines, obstructive sleep apnea on CPAP, history of recurrent otitis media and ear surgeries. Family history: Reports mother has mental health problems Social history: Patient is single and lives with her mother. She is unemployed on disability. Does report occasional marijuana use but denies any methamphetamine use for the past 1 year despite being informed of positive urine drug screen for amphetamines. Denies any significant alcohol use. Denies legal problems. Allergies: Coded Allergies: ACETAMINOPHEN (Verified Allergy, Severe, RASH, 05/16/18) ADHESIVE TAPE (Verified Allergy, Severe, SEVERE RASH, 05/16/18) CODEINE (Verified Allergy, Severe, RASH, 05/16/18) GUAIFENESIN (Verified Allergy, Severe, RASH, DIARRHEA, THROWING UP, 05/16/18) SULFA (SULFONAMIDE ANTIBIOTICS) (Verified Allergy, Severe, RASH, DIARHEA, 05/16/18) ALL SULFA SUMATRIPTAN (Verified Allergy, Severe, HEADACHES, 05/16/18) ERYTHROMYCIN ETHYLSUCCINATE (Verified Allergy, Unknown, RASH, 05/16/18) Meds NPU Home Medications Medication Instructions Recorded Confirmed Last Taken Type tizanidine [Zanaflex] 4 mg PO DIRECTED PRN MDD 3 05/17/19 01/27/21 05/16/19 20:00 History duloxetine [Cymbalta] 60 mg PO BID 30 Days #60 cap 05/18/19 01/27/21 Unknown Rx ibuprofen 600 mg tablet 800 mg PO BID PRN tab 10/27/20 01/27/21 Unknown History lamotrigine 100 mg tablet 150 mg PO BID tab 10/27/20 01/27/21 Unknown History propranolol 20 mg tablet 20 mg PO DAILY tab 10/27/20 01/27/21 Unknown History Allergies Allergy/AdvReac Type Severity Reaction Status Date / Time erythromycin base Allergy Severe bloody Verified 12/11/20 14:00 stool Sulfa (Sulfonamide Allergy Mild ALGY-Rash Verified 12/11/20 14:00 Antibiotics) olanzapine [From Zyprexa] Allergy ADR-Muscle Verified 01/27/21 22:58 Pain PFSH NPU PFSH: Family History Father Colon cancer onset unknown Hyperlipidemia Heart disease Hypertension Family/Other No problems noted. 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 Mental Status Exam MSE Comments: This is an obese white female in hospital scrubs with limited grooming and eye contact. No abnormal movements except for psychomotor retardation with psychomotor agitation with questioning. Limited cooperation with exam in mild to moderate distress. Speech was limited and increased rate and volume. Mood described as fine affect irritable. Thought process organized. Thought content: Patient did not answer questions about lethality but was not expressing demonstrated aggression toward herself or others, there are no delusions reported or noted, she denied auditory or visual hallucinations. Attention and concentration were limited and memory was limited but none were formally tested. She is alert and oriented x3. Insight and judgment were impaired and impulse control was impaired. Vitals/I&O/Wt Last Vital Signs Temp 97.7 F 01/27/21 22:53 Pulse 82 01/27/21 22:53 Resp 16 01/27/21 22:53 BP 132/100 01/27/21 22:53 Pulse Ox 96 01/27/21 22:53 Weight last 48 hrs Weight 81.647 kg Data NPU : 01/27/21 20:45 01/27/21 20:45 A&P Assessment and plan (1) Suicidal ideation: Status: Acute (2) Borderline personality disorder: Status: Acute (3) PCOS (polycystic ovarian syndrome): Status: Acute (4) Complex cyst of right ovary: Status: Acute (5) Amenorrhea: Status: Acute (6) Oligomenorrhea: Status: Acute Qualifiers: Oligomenorrhea type: secondary Qualified Code(s): N91.4 - Secondary oligomenorrhea (7) Abnormal uterine bleeding (AUB): Status: Acute (8) Uterine bleeding: Status: Acute (9) Cluster B personality disorder: Status: Acute (10) Impulse control disorder: Status: Acute (11) Methamphetamine abuse: Status: Acute Additional A&P Information This is a 30-year-old white female with a long history of mental health and addiction issues who presents endorsing depression and suicidality with active use/positive UDS with limited cooperation with exam reporting that she is open to restarting her medications but ambivalent at this moment about treatment. 1. Continue current medication. 2. Continue every 15 minute checks for safety. 3. Encourage individual, group and milieu therapies. 4. Encourage sober living treatment after discharge at the highest level of care to which he is willing to commit. Involuntary Hold Information 96 Hour Hold: 96 Hour Involuntary Admission: No Attestations NPU Medical Necessity Statement*: Inpatient hospitalization is medically necessary and the clinically appropriate intervention at this time. We will monitor medications and make changes as indicated. Patient will be in the hospital for over two midnights. Likely length of stay 3 to 5 days. 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
[2021-01-28] MEDS: propranolol 20 mg Tablet PO (08:31)
[2021-01-28] MEDS: duloxetine 60 mg Capsule PO ×2 (08:31→21:36)
[2021-01-28] MEDS: lamoTRIgine 100 mg Tablet 150 MG PO ×2 (08:31→21:36)
[2021-01-28 14:00] VITALS: BP 118/62; PULSE 79; RESP 17; TEMP 36.8; O2SAT 100
[2021-01-28] MEDS: acetaminophen 325 mg Tablet 650 MG PO (14:59)
[2021-01-28 20:07] VITALS: BP 122/71; PULSE 70; RESP 18; TEMP 36.7
[2021-01-29 06:00] VITALS: BP 162/97; PULSE 75; RESP 18; TEMP 36.6; O2SAT 98
[2021-01-29] MEDS: duloxetine 60 mg Capsule PO ×2 (08:43→21:45)
[2021-01-29] MEDS: propranolol 20 mg Tablet PO (08:43)
[2021-01-29] MEDS: lamoTRIgine 100 mg Tablet 150 MG PO ×2 (08:44→21:45)
[2021-01-29] MEDS: nicotine 21 mg Patch 1 PATCH TRANSDERMA (10:55)
[2021-01-29 14:00] VITALS: BP 122/72; PULSE 70; RESP 20; TEMP 36.7; O2SAT 97
--- NOTE | 2021-01-29 14:47 | PM.NPN ---
Subjective NPU Subjective: Interval history: I met with Dr. Fry in the treatment team to discuss the patient's case. Dr. Fry says that she has not provided much info that would give us clinical insight into her current situation. When I met with the patient, she described feeling depressed and sleeping too much. She also says that she had restless sleep last night, and she has nightmares most nights. When talking about sleep, she said a week ago I got up from a years sleep. When I attempted to clarify, by asking if she meant that she had been pretty sleepy over the last year, she said no she had slept 24 hours a day for at least the last 6 months. She has self-deprecating thoughts and feels like many things are her fault. She says, what is the point in living life? When I asked her if she was thinking about killing herself, she replied, why not? She denies homicidal ideation. She denies auditory and visual hallucinations. Mental Status Exam MSE Comments: This is an obese white female in hospital scrubs with limited grooming and eye contact. No abnormal movements except for psychomotor retardation. Limited cooperation with exam. Speech was at a normal rate and volume. Mood described as depressed; affect irritable. Thought process organized. Thought content: She has at least passive suicidal ideation if not active suicidal ideas. No homicidal ideation. No delusions reported or noted. She denied auditory or visual hallucinations. Attention and concentration were limited and memory was limited but none were formally tested. She is alert and oriented x3. Insight and judgment were impaired and impulse control was impaired. Vitals/I&O/Wt Last Vital Signs Temp 98.3 F 01/29/21 22:00 Pulse 68 01/29/21 22:00 Resp 14 01/29/21 22:00 BP 132/90 01/29/21 22:00 Pulse Ox 97 01/29/21 22:00 Weight last 48 hrs Weight 81.647 kg Data NPU : 01/27/21 20:45 01/27/21 20:45 A&P Assessment and plan (1) Methamphetamine abuse: Status: Acute (2) Suicidal ideation: Status: Acute (3) Borderline personality disorder: Status: Acute (4) Impulse control disorder: Status: Acute Additional A&P Information This is a 30-year-old white female with a long history of mental health and addiction issues who presents endorsing depression and suicidality with active use/positive UDS with limited cooperation with exam reporting that she is open to restarting her medications but ambivalent at this moment about treatment. 1. Continue current medication. 2. Continue every 15 minute checks for safety. 3. Encourage individual, group and milieu therapies. 4. Encourage sober living treatment after discharge at the highest level of care to which she is willing to commit. Involuntary Hold Information 96 Hour Hold: 96 Hour Involuntary Admission: No Attestations NPU Medical Necessity Statement*: Inpatient hospitalization is medically necessary and the clinically appropriate intervention at this time. We will monitor medications and make changes as indicated. Likely length of stay 2-4 days. 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
[2021-01-29] MEDS: acetaminophen 325 mg Tablet 650 MG PO (18:40)
[2021-01-29] MEDS: hyDROXYzine 25 mg Capsule 50 MG PO (21:45)
[2021-01-29] MEDS: trazodone 50 mg Tablet PO (21:45)
--- NOTE | 2021-01-29 21:45 | PC.NURSE ---
pt requested sleep and anxiety meds, trazodone 50mg po for sleep and vistaril 50mg po for anxiety given.
[2021-01-29 22:00] VITALS: BP 132/90; PULSE 68; RESP 14; TEMP 36.8; O2SAT 97
--- NOTE | 2021-01-29 22:30 | PC.NURSE ---
pt resting quietly
[2021-01-30 06:00] VITALS: BP 117/73; PULSE 78; RESP 15; TEMP 36.3; O2SAT 97
[2021-01-30] MEDS: duloxetine 60 mg Capsule PO ×2 (07:31→19:46)
[2021-01-30] MEDS: lamoTRIgine 100 mg Tablet 150 MG PO ×2 (07:31→19:46)
[2021-01-30] MEDS: propranolol 20 mg Tablet PO (07:31)
--- NOTE | 2021-01-30 10:45 | P.PN_ITS ---
Subjective NPU Subjective: Interval history: We discussed the patient's situation and treatment team meeting. She says she has an apartment but wants to live at the skilled nursing. It is not clear why she prefers this. Today she is complaining of some pain in her muscles and bones, especially the right shoulder. She says she has not wanted to take pain medication. She says she is feeling depressed about her muscles. She was tearful talking about it. She says she slept well last night. No auditory or visual hallucinations. She says she still has some suicidal thoughts. No homicidal ideation. She says she has a past history of bipolar disorder. She denies medication side effects, but does say she has been dizzy some. Mental Status Exam MSE Comments: This is an obese white female in hospital scrubs with improved grooming and eye contact. No abnormal movements or tics noted. No psychomotor retardation or agitation. More able to engage in reality based cooperation today. Speech was at a normal rate and volume. Mood described as depressed; affect brighter. Thought process organized. Thought content: She has at least passive suicidal ideation if not active suicidal ideas. No homicidal ideation. No delusions reported or noted, but she does have strange ideas about having s lept for a whole year. She denied auditory or visual hallucinations. Attention and concentration were limited and memory was limited but none were formally tested. She is alert and oriented x3. Insight and judgment were impaired and impulse control was impaired. Vitals/I&O/Wt Last Vital Signs Temp 98.0 F 01/30/21 14:00 Pulse 86 01/30/21 14:00 Resp 20 H 01/30/21 14:00 BP 130/70 01/30/21 14:00 Pulse Ox 98 01/30/21 14:00 Data NPU : 01/27/21 20:45 01/27/21 20:45 A&P Assessment and plan (1) Methamphetamine abuse: Status: Acute (2) Suicidal ideation: Status: Acute (3) Borderline personality disorder: Status: Acute (4) Impulse control disorder: Status: Acute Additional A&P Information This is a 30-year-old white female with a long history of mental health and addiction issues who presents endorsing depression and suicidality with active use/positive UDS with limited cooperation with exam reporting that she is open to restarting her medications but ambivalent at this moment about treatment. 1. Continue current medication. 2. Continue every 15 minute checks for safety. 3. Encourage individual, group and milieu therapies. 4. Encourage sober living treatment after discharge at the highest level of care to which she is willing to commit. 5. We will continue to gather information to clarify the patient's clinical picture. Involuntary Hold Information 96 Hour Hold: 96 Hour Involuntary Admission: No Attestations NPU Medical Necessity Statement*: Inpatient hospitalization is medically necessary and the clinically appropriate intervention at this time. We will monitor medications and make changes as indicated. Likely length of stay 2-4 days. 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
[2021-01-30] MEDS: nicotine 21 mg Patch 1 PATCH TRANSDERMA (11:00)
[2021-01-30 14:00] VITALS: BP 130/70; PULSE 86; RESP 20; TEMP 36.7; O2SAT 98
[2021-01-30] MEDS: trazodone 50 mg Tablet PO (19:39)
[2021-01-30] MEDS: tizanidine 4 mg Tablet PO (19:39)
[2021-01-30] MEDS: hyDROXYzine 25 mg Capsule 50 MG PO (19:41)
--- NOTE | 2021-01-30 19:53 | PC.NURSE ---
Addendum entered by Meg Munoz RN 01/31/21 05:33: Pt rested well and slept all evening Original Note: PRN's Nicotine patch removed. Vistaril 50mg PO given for anxiety. Trazdone 50 mg PO given for sleep
[2021-01-30 22:00] VITALS: BP 146/86; PULSE 75; RESP 22; TEMP 36.9; O2SAT 98
[2021-01-31 06:00] VITALS: BP 128/89; PULSE 77; RESP 20; TEMP 36.7; O2SAT 98
[2021-01-31] MEDS: lamoTRIgine 100 mg Tablet 150 MG PO ×2 (09:14→20:45)
[2021-01-31] MEDS: duloxetine 60 mg Capsule PO ×2 (09:14→20:45)
[2021-01-31] MEDS: propranolol 20 mg Tablet PO (09:15)
[2021-01-31 14:00] VITALS: BP 128/89; PULSE 77; RESP 20; TEMP 36.7; O2SAT 98
[2021-01-31] MEDS: nicotine 21 mg Patch 1 PATCH TRANSDERMA (14:13)
--- NOTE | 2021-01-31 15:22 | P.PN_ITS ---
Subjective NPU Subjective: Interval history: The patient says everything is better. She says her mood is good, but also says she continues to be depressed. Apparently this is her baseline level of depression. She says she feels like sleeping all of the time. She denies any strange phenomena, such as the snake she was feeling or biting her when she admitted. She says that things are okay at her apartment, but she may want to go to the senior living. She is not able to explain why she would go to the senior living since she has an apartment. She denies auditory and visual hallucinations. She denies suicidal and homicidal ideation. She has no medication side effects. When I asked her what her plan was regarding the drug use, she says, I hope I do not use. She says that it will take a lot of courage to quit using. Mental Status Exam MSE Comments: This is an obese white female in hospital scrubs whose eye contact and ability to stay connected during a conversation continue to improve. No abnormal movements or tics noted. No psychomotor retardation or agitation. Continues to be more able to engage in reality based cooperation. Speech was at a normal rate and volume. Mood described as depressed; affect brighter. Thought process organized. Thought content: She denies suicidal ideation now. No homicidal ideation. No delusions reported or noted, today. She denied auditory or visual hallucinations. Attention and concentration were limited and memory was limited but none were formally tested. She is alert and oriented x3. Insight and judgment were improved and impulse control was improved. Vitals/I&O/Wt Last Vital Signs Temp 98.1 F 01/31/21 14:00 Pulse 77 01/31/21 14:00 Resp 20 H 01/31/21 14:00 BP 128/89 01/31/21 14:00 Pulse Ox 98 01/31/21 14:00 Data NPU : 01/27/21 20:45 01/27/21 20:45 A&P Assessment and plan (1) Methamphetamine abuse: Status: Acute (2) Suicidal ideation: Status: Acute (3) Borderline personality disorder: Status: Acute (4) Impulse control disorder: Status: Acute Additional A&P Information This is a 30-year-old white female with a long history of mental health and addiction issues who presents endorsing depression and suicidality with active use/positive UDS with limited cooperation with exam reporting that she is open to restarting her medications but ambivalent at this moment about treatment. 1. Continue current medication. 2. Continue every 15 minute checks for safety. 3. Encourage individual, group and milieu therapies. 4. Encourage sober living treatment after discharge at the highest level of care to which she is willing to commit. 5. We will continue to gather information to clarify the patient's clinical picture. We have reviewed records and now spoken with the patient's mother. It is clear that she has had a similar symptom picture multiple times in the past. The symptoms improve when she is back on her medication and off of illicit drugs. Involuntary Hold Information 96 Hour Hold: 96 Hour Involuntary Admission: No Attestations NPU Medical Necessity Statement*: Inpatient hospitalization is medically necessary and the clinically appropriate intervention at this time. We will monitor medications and make changes as indicated. Anticipate discharge tomorrow if the patient continues to improve as she has today. Coding Level of Care Code Acute Eyeglass Fitter for Adelia Cat Diagnoses Methamphetamine abuse F15.10 Suicidal ideation R45.851 Borderline personality disorder F60.3 Impulse control disorder F63.9
--- NOTE | 2021-01-31 17:22 | P.PN_ITS ---
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
[2021-01-31] MEDS: hyDROXYzine 25 mg Capsule 50 MG PO (20:44)
[2021-01-31] MEDS: tizanidine 4 mg Tablet PO (20:45)
--- NOTE | 2021-01-31 20:49 | PC.NURSE ---
Patch Removed from pt arm.
--- NOTE | 2021-01-31 20:50 | PC.NURSE ---
PRN's Visteril 50mg PO given for anxiety. Trazodone 50mg PO given for sleep onset. Tizanadine 4mg PO given at pt request
--- NOTE | 2021-01-31 20:52 | PC.NURSE ---
PM assessment Pt is anxious and tearful. Pt is asking for an ice bag for pain in her arm. Applied Ice. Pt is depressed and putting head down. Once Prn meds were given.. she smiled and skipped to her room. She is laying down
[2021-01-31 21:52] VITALS: BP 133/89; PULSE 78; RESP 14; O2SAT 97
[2021-02-01 06:00] VITALS: RESP 18
[2021-02-01] MEDS: propranolol 20 mg Tablet PO (10:25)
[2021-02-01] MEDS: duloxetine 60 mg Capsule PO (10:25)
[2021-02-01] MEDS: lamoTRIgine 100 mg Tablet 150 MG PO (10:25)
--- NOTE | 2021-02-01 10:31 | P.DS_ITS ---
Diagnoses at Discharge Discharge Diagnosis (1) Methamphetamine abuse: Status: Chronic (2) Suicidal ideation: Status: Resolved (3) Borderline personality disorder: Status: Chronic (4) Impulse control disorder: Status: Chronic Reason for Visit Reason for Visit: SWELLING AND RASH TO GROIN AREA Brief History: Dena Greene is a 30 year old female who presented to the emergency department with the following report: Chief complaint: General Medical Stated complaint: SWELLING AND RASH TO GROIN AREA Time Seen by Provider: 01/27/21 19:53 History of Present Illness: HPI narrative: Patient arrives via ambulance. Patient says she is seeing snakes and thought maybe when it bit her in her groin area. Says she is also depressed and that she is suicidal and she is afraid if she goes home she will take her life. MD complaint: Suicidal ideation Onset (ago): day(s) Associated symptoms: Deny rash or vomiting Treatments prior to arrival: other (Has used some meth and marijuana.). She was admitted to the neuropsychiatric unit for definitive treatment of those issues. She presents this morning reporting that she was doing okay and she would like to just rest. We discussed the importance of as being and have a conversation about with going on to the we can be of assistance. She endorsed that she been taking her medication properly and that she has had past psychiatric stays here. We reviewed her last note and excerpt is included below for context. In that presentation like this she was resistant to speaking initially. This appears likely secondary to being tired secondary to stimulant (methamphetamine) withdrawal. She reluctantly acknowledged that there may have been some drug use but seemed ambivalent about talking about it and somewhat annoyed that it has been brought up. We discussed the risk-benefit alternatives of continuing her current medications and she understood and agreed proceed as documented in this note. Otherwise she denied to being significant changes recently could not give any accounting for what her substance use has been like since her last hospitalization. She reported she would be able to talk more in the morning. Per her 05/17/2019 [facility] inpatient psychiatric evaluation: History of Present Illness Dena Greene is a 28 year old female who presents today reporting that she is taking her medications as prescribed and that this represents a ongoing family conflict that escalated to a point that she was so angry that she had concerns about self-harm. She reports that she never did it and wasn't going to do it but she was worried. She also had a mild to moderate case of conjunctivitis that has resolved. She reports that she had been feeling crappy and she feels like that may have also contributed to her reaction. She denies any thoughts of lethality today. She reports that her previous evaluations psychosocial representation of her life currently is unchanged. We reviewed her past recent hospitalizations that can be seen below. This is her fourth hospitalization in a year. She reports that she feels her medications are working fine and that she sometimes doesn't manage her emotions well. We discussed the risks benefits and alternatives of increasing the Lamictal and she understood and agreed to proceed as is documented in this note. Hospital Course Hospital Course The patient was admitted to the neuropsychiatric unit for definitive treatment of these issues. On the unit she slowly acclimated to the individual, group and milieu therapies. There were some mild psychotic symptoms present initially which resolved with abstinence from methamphetamine and with the medication being restarted. She was receptive to treatment team recommendations and showed modest improvement and was able to contract for safety prior to discharge. During the hospitalization, patient had routine laboratory studies which were within normal limits except for few outliers. Additionally there was a general medical evaluation which was also within normal limits and revealed no new acute processes. Discharge Summary: At the time of discharge, psychosis and lethality were denied. Mood and anxiety were well managed. She says, my mood is getting balanced out. She says she feels better about her future and knowing I can deal with things. Patient endorsed a plan to avoid all drugs of abuse and follow-up with the aftercare recommendations of the treatment team. Patient was evaluated and deemed to be absent credible lethality, and had achieved the maximum benefit from an inpatient hospitalization, so was discharged. Involuntary Hold Information 96 Hour Hold: 96 Hour Involuntary Admission: No Mental Status Exam MSE Comments: The patient made good eye contact and was cooperative and open to the exam. No psychomotor agitation or retardation. Speech was had a regular rate and rhythm without pressure. Alert and oriented to person, place, time, and situation. Attention and concentration were intact to exam Memory was fairly good to exam. Mood is improved without depression and anxiety. Affect is brighter. Thought process: Logical and goal directed. No racing thoughts or flight of ideas. Thought content: Denies auditory and visual hallucinations. There are no delusions noted. No suicidal or homicidal ideation. Has future-oriented goals. Insight and judgment are improved and adequate. Discharge Data Vitals: Last Vital Signs Temp 98.1 F 01/31/21 14:00 Pulse 78 01/31/21 21:52 Resp 18 02/01/21 06:00 BP 133/89 01/31/21 21:52 Pulse Ox 97 01/31/21 21:52 Discharge Plan Discharge Patient Disposition: Home Condition: Stable Prescriptions: Continued Zanaflex 4 mg tablet 4 mg PO DIRECTED MDD 3 PRN (Reason: Muscle Spasm) 30 Days Qty: 30 RF: 0 IBU 600 mg tablet 800 mg PO BID PRN (Reason: Pain (Scale Score 4-6)) 30 Days Qty: 30 RF: 0 propranolol 20 mg tablet 20 mg PO DAILY 30 Days Qty: 30 RF: 0 lamotrigine 100 mg tablet 150 mg PO BID 30 Days Qty: 90 RF: 0 Cymbalta 60 mg capsule,delayed release(DR/EC) 60 mg PO BID 30 Days Qty: 60 RF: 1 Discharge Orders: Discharge Order (Routine); Ordered 02/01/21 Ordered By: Jerome Rios Referrals: Josh Noble [Other] (appointment with Dashawn Kam Feb 06 4pm) Discharge Diet: Usual diet Discharge Activity: Resume usual activity Patient Instructions: Opioid Safety Discharge Attestations NPU Time Spent in Discharge Care*: less than 30 min Specific Discharge Activities: Specific discharge activities: educating patient, discussing with family service caseworker/social workers/dc planners, documenting/other paperwork and evaluating patient/reviewing data Status at Discharge: Cognitive status at discharge: mildly impaired cognition , Behavioral status at discharge: cooperative , Functional status at discharge: independent ambulation Overall status at discharge: patient is back to baseline Coding Level of Care Code Acute Chg FW DC note Diagnoses Methamphetamine abuse F15.10 Suicidal ideation R45.851 Borderline personality disorder F60.3 Impulse control disorder F63.9
[2021-02-01 10:49] VITALS: BP 130/76; PULSE 68; RESP 18; TEMP 36.7; O2SAT 99
== END 2021-02-01 12:17 | disposition home or self-care (01) | DRG 881 ==
LOC: ER 21:42 → NP 21:59
PROVIDERS: Nurse Practitioner Family; Admitting Provider Psychiatry & Neurology Psychiatry; Emergency Provider Family Medicine; Visit Provider Psychiatry & Neurology Child & Adolescent Psychiatry
DX: F32.9 Major depressive disorder, single episode, unspecified (principal); R45.851 Suicidal ideations; F15.13 Other stimulant abuse with withdrawal; I10 Essential (primary) hypertension; J45.909 Unspecified asthma, uncomplicated; Z87.440 Personal history of urinary (tract) infections; F17.210 Nicotine dependence, cigarettes, uncomplicated; G47.33 Obstructive sleep apnea (adult) (pediatric); F60.3 Borderline personality disorder; E28.2 Polycystic ovarian syndrome; F60.89 Other specific personality disorders; F63.9 Impulse disorder, unspecified
CPT/HCPCS: 80053; 80306; 80307; 81001; 85025; 97150; 97165; 99285

== ENCOUNTER 2021-06-25 15:30 | Inpatient (IN) | payer MEDICARE, MEDICAID, SELFPAY ==
--- NOTE | 2021-06-25 15:31 | ED.C_ITS ---
HPI - Psych General: Chief Complaint: Psychiatric Symptoms Stated Complaint: SI Time Seen by Provider: 06/25/21 15:31 History of Present Illness: Ms. rGeene is a 31-year-old lady with significant past medical history of substance abuse and psychiatric disorder presents emergency department due to psychiatric concerns. She endorses suicidal and homicidal ideation. This has been worse for some time though patient has difficulty identifying exactly how long. She endorses no specific plan other than to hurt, kill, or perhaps murder some people. She has experienced increase social stressors. Overall course is worsened. She endorses therapeutic benefit from prior hospitalizations. Intensity symptoms is moderate to severe. She endorses compliance with her psychiatric medication regimen and denies substance abuse though patient appears clinically intoxicated versus chronic affect change related to underlying psychiatric disorder. Medically she is concerned about cough. Patient has scattered scratches which she reports are related to cat. No other specific changes in health, exacerbating, relieving factors. History of same: Yes Exacerbating factors: other Associated psychiatric symptoms: suicidal ideation and homicidal ideation Review of Systems General: Reports: 10 or more systems reviewed and unremarkable except in HPI and below PFSH ED PFSH: Medical History Abnormal uterine bleeding (AUB) Amenorrhea Complex cyst of right ovary Oligomenorrhea Uterine bleeding Family History Father Colon cancer onset unknown Hyperlipidemia Heart disease Hypertension Family/Other No problems noted. 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 Female Reproductive History: Date of last menstrual period: 01/27/21 Physical Exam Const: COMMON NORMALS: alert GENERAL APPEARANCE: cooperative and well developed HENMT: COMMON NORMALS: normocephalic and atraumatic HEAD & SCALP: normocephalic and atraumatic Eye: COMMON NORMALS: conjunctivae normal CONJUNCTIVA: Yes conjunctivae normal SCLERA: sclerae normal Neck/C-Spine: COMMON NORMALS: supple GENERAL: Yes trachea midline Resp: COMMON NORMALS: normal respiratory effort and clear to auscultation bilaterally EFFORT & INSPECTION: Yes able to speak in complete sentences AUSCULTATION: clear to auscultation bilaterally Cardio: COMMON NORMALS: regular rate and regular rhythm RATE: regular rate RHYTHM: regular rhythm GI: COMMON NORMALS: Soft to palpation PALPATION: Yes Soft to palpation and No Tenderness to palpation present (GI) PERCUSSION: normal to percussion Extremity: GENERAL: Yes normal exam except as noted and No edema Neuro: COMMON NORMALS: moves all extremities SENSORIUM/ORIENTATION: Yes alert and No Orientation impaired Psych: APPEARANCE: Yes unkempt SPEECH: Yes slow MOOD & AFFECT: Yes Flat affect present THOUGHT CONTENT: Yes Suicidality present and Yes Homicidality present Course ED course: - Patient was seen and evaluated by me at bedside - Patient placed on cardiac monitors, IV access obtained - Initial evaluation notable for exam as above - Labs notable for mild leukocytosis and hemoconcentration. No significant electrolyte abnormality requiring correction. Toxic ingestion labs negative as tested with exception of THC screens. - Imaging notable for negative chest x-ray. Chest x-ray was obtained given patient's reported history of cough. Covid also negative. - Upon serial reexamination after treatment the patient was similar - Based on ED evaluation at this point there is no obvious condition that would preclude the patient from inpatient management of psychiatric concerns. - Discussed with Dr. Gannon of the psychiatry service who agreed to admit the patient. Note: Click bubbles or prepopulated crump in note writing are used for assistance with data collection and billing and are inherently more limited than narrative and other text portions of this note. Please use narrative for additional clinical history and defer to narrative/free test for any case of contradictory information. If information appears in only free text or click bubble it should be considered present or absent as reported. Please contact note real estate underwriter for clarifications of clinical information or contradictory information. MDM is a brief summary, contradictory or erroneous seeming information should be clarified and full note should be reviewed. Vital Signs: Vital signs: Vital Signs Temperature 97.5 F L 06/27/21 20:31 Pulse Rate 70 06/27/21 20:31 Respiratory Rate 17 06/27/21 20:31 Blood Pressure 113/72 06/27/21 20:31 Pulse Oximetry 99 06/27/21 20:31 MDM - Psych Medical Decision Making 31-year-old lady with history of psychiatric illness presenting with homicidal and suicidal ideation. ED evaluation without prohibiting finding for inpatient psychiatric management. Patient admitted to psychiatry unit for definitive management and treatment as deemed appropriate by psychiatry service. Medical Records I reviewed the patient's medical records. Lab Data I reviewed the patient's lab results. : 06/25/21 15:56 06/25/21 15:56 Radiology Impressions Chest X-Ray 06/25/21 15:44 IMPRESSION: Unremarkable chest radiograph. Laboratory Results WBC 12.1 10^3/uL (4.0-10.0) H 06/25/21 15:56 RBC 5.34 10^6/uL (4.1-5.3) H 06/25/21 15:56 Hgb 15.8 g/dL (11.5-15.3) H 06/25/21 15:56 Hct 48.1 % (37.0-47.0) H 06/25/21 15:56 MCV 90.1 fl (81-99) 06/25/21 15:56 MCH 29.6 pg (28.0-34.0) 06/25/21 15:56 MCHC 32.8 g/dL (30.0-36.0) 06/25/21 15:56 RDW 13.9 % (12.1-15.1) 06/25/21 15:56 Plt Count 330 10^3/cmm (130-400) 06/25/21 15:56 MPV 10.4 fL (7.4-10.4) 06/25/21 15:56 Neut % (Auto) 43.6 % 06/25/21 15:56 Lymph % (Auto) 46.8 % 06/25/21 15:56 Sharp % (Auto) 4.6 % 06/25/21 15:56 Eos % (Auto) 4.1 % 06/25/21 15:56 Baso % (Auto) 0.7 % 06/25/21 15:56 Neut # (Auto) 5.26 10^3/uL (1.8-7.7) 06/25/21 15:56 Lymph # (Auto) 5.6 10^3/uL (0.8-4.8) H 06/25/21 15:56 Sharp # (Auto) 0.6 10^3/uL (0.2-0.9) 06/25/21 15:56 Eos # (Auto) 0.5 10^3/uL (0.0-0.8) 06/25/21 15:56 Baso # (Auto) 0.1 10^3/uL (0.0-0.1) 06/25/21 15:56 Nucleated RBC % (auto) 0 % 06/25/21 15:56 Nucleated RBCs # 0.0 /100WBC 06/25/21 15:56 Sodium 135 mmol/L (136-145) L 06/25/21 15:56 Potassium 4.0 mmol/L (3.5-5.1) 06/25/21 15:56 Chloride 100 mmol/L (98-107) 06/25/21 15:56 Carbon Dioxide 22 mmol/L (22-29) 06/25/21 15:56 Anion Gap 17.0 (5-19) 06/25/21 15:56 BUN 15 mg/dL (6-20) 06/25/21 15:56 Creatinine 0.9 mg/dL (0.5-0.9) 06/25/21 15:56 GFR Calculation 72.1 mL/min (90-130) L 06/25/21 15:56 Glucose 73 mg/dL (65-115) 06/25/21 15:56 Calculated Osmolality 279 mOsm/kg (285-295) L 06/25/21 15:56 Calcium 10.3 mg/dL (8.5-10.5) 06/25/21 15:56 Total Bilirubin 0.3 mg/dL (0.15-1.2) 06/25/21 15:56 AST 14 U/L (0-32) 06/25/21 15:56 ALT 13 U/L (0-33) 06/25/21 15:56 Alkaline Phosphatase 102 IU/L (35-105) 06/25/21 15:56 Total Protein 7.7 g/dL (6.6-8.7) 06/25/21 15:56 Albumin 5.1 g/dL (3.5-5.2) 06/25/21 15:56 Globulin 2.6 g/dL (1.3-4.6) 06/25/21 15:56 TSH 1.62 uIU/mL (0.27-4.20) 06/25/21 15:56 HCG, Qual Negative (Negative) 06/25/21 16:15 Urine Color Yellow (Yellow) 06/25/21 16:15 Urine Appearance Clear (CLEAR) 06/25/21 16:15 Urine pH 5 (5-7) 06/25/21 16:15 Ur Specific [place] 1.020 (1.005-1.030) 06/25/21 16:15 Urine Protein Neg (Negative) 06/25/21 16:15 Urine Glucose (UA) Norm (Normal) 06/25/21 16:15 Urine Ketones Negative (Negative) 06/25/21 16:15 Urine Blood Neg (Negative) 06/25/21 16:15 Urine Nitrate Negative (Negative) 06/25/21 16:15 Urine Bilirubin Neg (Negative) 06/25/21 16:15 Urine Urobilinogen Norm mg/dL (Negative) 06/25/21 16:15 Ur Leukocyte Esterase Negative (Negative) 06/25/21 16:15 Salicylates < 0.3 mg/dL (3-10) L 06/25/21 15:56 Urine Opiates Screen Negative ng/mL (Negative) 06/25/21 16:15 Acetaminophen < 5.0 ug/mL (10-30) L 06/25/21 15:56 Ur Barbiturates Screen Negative ng/mL (Negative) 06/25/21 16:15 Ur Phencyclidine Scrn Negative ng/mL (Negative) 06/25/21 16:15 Ur Amphetamines Screen Negative ng/mL (Negative) 06/25/21 16:15 U Benzodiazepines Scrn Negative ng/mL (Negative) 06/25/21 16:15 Urine Cocaine Screen Negative ng/mL (Negative) 06/25/21 16:15 U Marijuana (THC) Screen Positive ng/mL (Negative) H 06/25/21 16:15 Ethyl Alcohol < 10 mg/dL (0-10) 06/25/21 15:56 Coronavirus 229E (PCR) Not detected (NOT DETECT) 06/25/21 17:02 SARS-CoV-2 (PCR) Not detected (NOT DETECT) 06/25/21 17:02 EKG Data EKG 1: Interpretation: Twelve-lead EKG shows a regular rhythm at a rate of 70. OH interval 161, QRS duration 86, QTc 433. Left axis deviation. Interpretation: Sinus rhythm. Nonspecific ST segment abnormalities. Discharge Plan Discharge Patient Disposition: Admitted As Inpatient Admit Provider: Donald Gannon Clinical Impression: Homicidal ideation, Suicidal ideation Condition: Stable Coding Level of Care Code ED Patient Admitting Representative for Chg Fwd Exam Comprehensive
[2021-06-25 15:32] VITALS: BP 132/94; PULSE 85; RESP 18; TEMP 36.9; O2SAT 99; BMI 28.3
--- NOTE | 2021-06-25 15:38 | ECG_ITS ---
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 Measurements Intervals [place] Rate: 70 P: 17 AL: 161 QRS: -6 QRSD: 86 T: 19 QT: 413 QTc: 446 Interpretive Statements SINUS RHYTHM MINIMAL VOLTAGE CRITERIA FOR LVH, CONSIDER NORMAL VARIANT [MEETS CRITERIA IN ONE OF: R(aVL), S(V1), R(V5), R(V5/V6)+S(V1)] POSSIBLE ANTERIOR MYOCARDIAL INFARCTION , PROBABLY OLD [30 ms Q WAVE IN V3/V4, OR R < 0.2 mV IN V4] Compared to ECG 05/16/2018 15:07:07 No significant changes Electronically Signed On 06-25-2021 22:16:53 METAL EXPEDITER by Collins Shannon M.D. [id number]
--- NOTE | 2021-06-25 15:44 | XR_ITS ---
WS: [id number] Exam: XR chest 1V portable [id number] Date/Time of Exam: 06/25/2021 3:44 PM Reason For Exam: cough Comparison 05/16/2018. Findings: The lungs are clear and fully expanded. Costophrenic angles are sharp. No infiltrates. Bronchovascula r relief appears normal. Cardiac silhouette is unremarkable. Bony elements are intact. XR/XR chest 1V portable [id number] IMPRESSION: Unremarkable chest radiograph.
[2021-06-25 15:53] VITALS: BP 132/94; PULSE 85; RESP 18; TEMP 36.9; O2SAT 99
[2021-06-25 16:08] LABS: Basophils # 0.1 10^3/uL (0.0-0.1); Basophils % 0.7 %; Eosinophils # 0.5 10^3/uL (0.0-0.8); Eosinophils % 4.1 %; Hematocrit 48.1 % (37.0-47.0); Hemoglobin 15.8 g/dL (11.5-15.3); Lymphocytes # 5.6 10^3/uL (0.8-4.8); Lymphocytes % 46.8 %; Mean Corpuscular HGB Conc 32.8 g/dL (30.0-36.0); Mean Corpuscular Hemoglobin 29.6 pg (28.0-34.0); Mean Corpuscular Volume 90.1 fl (81-99); Mean Platelet Volume 10.4 fL (7.4-10.4); Monocytes # 0.6 10^3/uL (0.2-0.9); Monocytes % 4.6 %; Neutrophils # 5.26 10^3/uL (1.8-7.7); Neutrophils % 43.6 %; Nucleated Red Blood Cells % 0 %; Platelet Count 330 10^3/cmm (130-400); Red Blood Count 5.34 10^6/uL (4.1-5.3); Red Cell Distribution Width 13.9 % (12.1-15.1); White Blood Count 12.1 10^3/uL (4.0-10.0)
[2021-06-25 16:27] LABS: HCG Qualitative Urine. Negative (Negative)
[2021-06-25 16:34] LABS: Add Urine Microscopic? NO; Charge for UA Resulting for Rev
[2021-06-25 16:35] LABS: Slide Review Slide Review Perform
[2021-06-25 16:38] LABS: Bilirubin Urine Neg (Negative); Blood Urine Neg (Negative); Glucose Urine UA Norm (Normal); Ketones Urine Negative (Negative); Leukocyte Esterase Urine Negative (Negative); Nitrate Urine Negative (Negative); Protein Urine Neg (Negative); Urine Appearance Clear (CLEAR); Urine Color Yellow (Yellow); Urobilinogen Urine Norm (Negative); pH Urine 5 (5-7)
[2021-06-25 16:39] LABS: Acetaminophen < 5.0 ug/mL (10-30); Alanine Aminotransferase 13 U/L (0-33); Albumin Level 5.1 g/dL (3.5-5.2); Alkaline Phosphatase 102 IU/L (35-105); Aspartate Amino Transferase 14 U/L (0-32); Blood Urea Nitrogen 15 mg/dL (6-20); Calcium 10.3 mg/dL (8.5-10.5); Carbon Dioxide 22 mmol/L (22-29); Chloride 100 mmol/L (98-107); Globulin 2.6 g/dL (1.3-4.6); Glomerular Filtration Rate 72.1 mL/min (90-130); Glucose 73 mg/dL (65-115); Osmolality Calculated 279 mOsm/kg (285-295); Salicylate < 0.3 mg/dL (3-10); Sodium 135 mmol/L (136-145); Thyroid Stimulating Hormone 1.62 uIU/mL (0.27-4.20); Total Bilirubin 0.3 mg/dL (0.15-1.2); Total Protein 7.7 g/dL (6.6-8.7)
[2021-06-25 16:40] LABS: Alcohol Level < 10 mg/dL (0-10)
[2021-06-25 16:45] LABS: Amphetamines Screen Urine Negative (Negative); Barbiturates Screen Urine Negative (Negative); Benzodiazepines Screen Urine Negative (Negative); Cocaine Screen Urine Negative (Negative); Opiate Screen Urine Negative (Negative); PCP Screen Urine Negative (Negative); THC Screen Urine Positive (Negative)
[2021-06-25 17:26] VITALS: BP 135/87; PULSE 81; RESP 18; TEMP 36.9; O2SAT 99
[2021-06-25 21:01] LABS: Adenovirus Not Detected (NOT DETECT); Chlamydia Pneumoniae Not Detected (NOT DETECT); Coronavirus 229E,HKU1,NL63,OC4 Not Detected (NOT DETECT); Human Metapneumovirus Not Detected (NOT DETECT); Human Rhinovirus/Enterovirus Not Detected (NOT DETECT); Influenza A Not Detected (NOT DETECT); Influenza A H1 Not Detected (NOT DETECT); Influenza A H1-2009 Not Detected (NOT DETECT); Influenza A H3 Not Detected (NOT DETECT); Influenza B Not Detected (NOT DETECT); Mycoplasma Pneumoniae Not Detected (NOT DETECT); Parainfluenza Virus Type 1 Not Detected (NOT DETECT); Parainfluenza Virus Type 2 Not Detected (NOT DETECT); Parainfluenza Virus Type 3 Not Detected (NOT DETECT); Parainfluenza Virus Type 4 Not Detected (NOT DETECT); Respiratory Syncytial Virus A Not Detected (NOT DETECT); Respiratory Syncytial Virus B Not Detected (NOT DETECT); SARS-COV-2 Not Detected (NOT DETECT)
[2021-06-25 22:09] VITALS: BP 117/83; PULSE 78; RESP 20; TEMP 36.7; O2SAT 97
[2021-06-25] MEDS: hyDROXYzine 25 mg Capsule 50 MG PO (22:38)
--- NOTE | 2021-06-26 01:16 | PC.ADMIT ---
Admission Note: Ms. Greene is a 31-year-old lady with significant past medical history of substance abuse and psychiatric disorder presents emergency department due to psychiatric concerns. She endorses suicidal and homicidal ideation. This has been worse for some time though patient has difficulty identifying exactly how long. She endorses no specific plan other than to hurt, kill, or perhaps murder some people. She has experienced increase social stressors. Overall course is worsened. She endorses therapeutic benefit from prior hospitalizations. Intensity symptoms is moderate to severe. She endorses compliance with her psychiatric medication regimen and denies substance abuse though patient appears clinically intoxicated versus chronic affect change related to underlying psychiatric disorder. Medically she is concerned about cough. Patient has scattered scratches which she reports are related to cat. No other specific changes in health, exacerbating, relieving factors. The patient,Dena Greene,31 y/o, was given written information regarding hospital policies, unit procedures and contact persons. Patient's smoking status: current every day smoker. Vital Signs - 8 hr 06/25/21 17:26 06/25/21 22:09 Temperature 98.4 F 98.1 F Pulse Rate 81 78 Respiratory Rate 18 20 H Blood Pressure 135/87 117/83 Pulse Oximetry 99 97
[2021-06-26 06:00] VITALS: BP 120/71; PULSE 58; RESP 16; TEMP 36.9; O2SAT 97
[2021-06-26] MEDS: duloxetine 60 mg Capsule PO ×2 (08:29→18:07)
[2021-06-26] MEDS: propranolol 20 mg Tablet PO ×2 (08:29→18:07)
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
[2021-06-26] MEDS: tizanidine 4 mg Tablet PO (12:12)
[2021-06-26] MEDS: hyDROXYzine 25 mg Capsule 50 MG PO (12:34)
[2021-06-26 13:23] VITALS: BP 102/67; PULSE 88; RESP 17; TEMP 36.6; O2SAT 99
[2021-06-26] MEDS: lamoTRIgine 100 mg Tablet 150 MG PO (18:07)
[2021-06-26] MEDS: OLANZapine 5 mg TABLET PO (20:08)
[2021-06-26 20:35] VITALS: BP 106/64; PULSE 69; RESP 18; TEMP 36.3; O2SAT 98
[2021-06-27 05:46] VITALS: BP 114/71; PULSE 70; RESP 20; TEMP 36.6; O2SAT 99
[2021-06-27] MEDS: duloxetine 60 mg Capsule PO ×2 (08:16→17:29)
[2021-06-27] MEDS: propranolol 20 mg Tablet PO ×2 (08:16→17:30)
[2021-06-27] MEDS: lamoTRIgine 100 mg Tablet 150 MG PO ×2 (08:16→17:30)
[2021-06-27] MEDS: nicotine 21 mg Patch 1 PATCH TRANSDERMA (08:57)
--- NOTE | 2021-06-27 12:31 | W.PM.NPUPNS ---
Subjective NPU Subjective: Interval history: She was in bed at 12:30 PM. She was asleep and was able to open her eyes but her eyes rolled back and she went back to sleep. She said that she is doing okay. I forgot to increase the olanzapine as planned last night but it will be increased tonight. She was informed that a different psychiatrist would be here tomorrow. Mental Status Exam MSE Comments: This is a 31-year old female who appears approximately her stated age and is in no acute distress.? She is generally uncomfortable.? She is dressed in hospital scrubs.? Her head is shaved and her scalp has many ridges.? She has many scabs on her face. psychomotor activity generally increased. Speech is at a regular rate and rhythm, normal volume, good articulation, not pressured. Alert, oriented X3 Attention and concentration appear to be average. Memory is intact Mood is depressed.? Affect is moderately dysphoric. Thought process:? much of what she says does not make any sense Thought content: She reports auditory hallucinations.? These have been there all her life.? She denies visual hallucinations.? No delusions or paranoia are noted.? She admits to suicidal ideation but does not have a current plan., and no homicidal ideation.? Fund of knowledge is possibly below average. Insight and judgment appear to be poor. Impulse control is poor. Cognition: Level of Consciousness: Awake, Alert, Appropriate and Follows Commands Patient Cognition Impaired: No Ability to Follow Directions: Excellent Patient Orientation (long list): Person, Place, Time and Name Comprehension Ability: Understands Concepts Hallucination Type: None Delusion Description: Not Present Thought Process: Disorganized Affect: Affect Description: Appropriate and Calm Depressive Symptoms: Recurrent Thoughts of or Suicide Behavior: Patient Behavior: Cooperative Speech Pattern: Appropriate Vitals/I&O/Wt Last Vital Signs Temp 97.9 F 06/27/21 05:46 Pulse 70 06/27/21 05:46 Resp 20 H 06/27/21 05:46 BP 114/71 06/27/21 05:46 Pulse Ox 99 06/27/21 05:46 Weight last 48 hrs Weight 68.039 kg Data NPU : 06/25/21 15:56 06/25/21 15:56 A&P Assessment and plan (1) Homicidal ideation: Status: Acute (2) Suicidal ideation: Status: Acute (3) Methamphetamine abuse: Status: Chronic (4) Borderline personality disorder: Status: Chronic Plan This is a 31-year-old disabled female who has had several hospitalizations and reports lifelong auditory hallucinations Plan: 1.? Continue current medication.? Increase olanzapine to 10 mg.? Lamictal 150 mg twice daily, Cymbalta 60 mg twice daily and propranolol 20 mg twice daily. 2.? Continue every 15 minute checks for safety. 3.? Encourage individual, group and milieu therapies. 4.? Encourage sober living treatment after discharge at the highest level of care to which she is willing to commit. 5.? We will monitor for safety for herself in the community prior to discharge. Involuntary Hold Information 96 Hour Hold: 96 Hour Involuntary Admission: No Attestations NPU Medical Necessity Statement*: Inpatient hospitalization is medically necessary and the clinically appropriate intervention at this time. We will initiate medications and make changes as indicated. 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
[2021-06-27 13:45] VITALS: BP 105/64; PULSE 71; RESP 17; TEMP 36.7; O2SAT 99
[2021-06-27] MEDS: OLANZapine 5 mg TABLET 10 MG PO (20:14)
[2021-06-27 20:31] VITALS: BP 113/72; PULSE 70; RESP 17; TEMP 36.4; O2SAT 99
[2021-06-28 06:00] VITALS: BP 116/76; PULSE 65; RESP 16; TEMP 36.6; O2SAT 89
[2021-06-28] MEDS: lamoTRIgine 100 mg Tablet 150 MG PO ×2 (08:45→17:09)
[2021-06-28] MEDS: propranolol 20 mg Tablet PO ×2 (08:45→17:09)
[2021-06-28] MEDS: nicotine 21 mg Patch 1 PATCH TRANSDERMA (08:45)
[2021-06-28] MEDS: duloxetine 60 mg Capsule PO ×2 (08:45→17:10)
[2021-06-28] MEDS: acetaminophen 325 mg Tablet 650 MG PO (13:22)
[2021-06-28] MEDS: tizanidine 4 mg Tablet PO (13:23)
[2021-06-28 14:00] VITALS: BP 138/89; PULSE 65; RESP 20; TEMP 36.3; O2SAT 98
--- NOTE | 2021-06-28 15:43 | W.PM.NPUPNS ---
Subjective NPU Subjective: Interval history: Admitted today reporting that she struggled with anger and feelings of homicidal ideation for some time so history of trauma and being off her medication. She reports that before Zyprexa has really helped but that she felt she is getting headaches or lack of improvement. She reported that she is open to trial of different medication and we discussed the results and alternatives of starting Invega. She understood and agreed to see as documented in this note. Mental Status Exam MSE Comments: This is an overweight versus obese white female in hospital scrubs with adequate grooming and eye contact. No abnormalities. Cooperative with exam in mild distress. Speech was decreased rate and volume. Mood described as angry, affect irritable. Thought process organized. Thought content: Patient denies suicidal but endorses homicidal ideation,no delusions reported or noted, she denied any auditory or hallucinations. Attention concentration were intact and memory was reliable but none were formally tested. She alert oriented x3. Insight and judgment appeared limited, impulse control is limited. Vitals/I&O/Wt Last Vital Signs Temp 98.0 F 06/28/21 21:44 Pulse 71 06/28/21 21:44 Resp 20 H 06/28/21 21:44 BP 114/75 06/28/21 21:44 Pulse Ox 100 06/28/21 21:44 Data NPU : 06/25/21 15:56 06/25/21 15:56 A&P Assessment and plan (1) Borderline personality disorder: Status: Chronic (2) Methamphetamine abuse: Status: Chronic (3) Suicidal ideation: Status: Acute (4) Homicidal ideation: Status: Acute (5) PCOS (polycystic ovarian syndrome): Status: Acute (6) Impulse control disorder: Status: Chronic Plan This is a 31-year-old disabled female who has had several hospitalizations and reports lifelong auditory hallucinations Plan: 1.? Continue current medication.? Discontinue olanzapine and start Geodon 20 mg p.o. nightly.? Lamictal 150 mg twice daily, Cymbalta 60 mg twice daily and propranolol 20 mg twice daily. 2.? Continue every 15 minute checks for safety. 3.? Encourage individual, group and milieu therapies. 4.? Encourage sober living treatment after discharge at the highest level of care to which she is willing to commit. 5.? We will monitor for safety for herself in the community prior to discharge. Involuntary Hold Information 96 Hour Hold: 96 Hour Involuntary Admission: No Attestations NPU Medical Necessity Statement*: Inpatient hospitalization is medically necessary and the clinically appropriate intervention at this time.? We will initiate medications and make changes as indicated. Likely to stay 2 to 4 days. 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
[2021-06-28] MEDS: ziprasidone hcl 20 mg Capsule PO (19:04)
[2021-06-28] MEDS: OLANZapine 5 mg TABLET 10 MG PO (20:50)
[2021-06-28 21:44] VITALS: BP 114/75; PULSE 71; RESP 20; TEMP 36.7; O2SAT 100
[2021-06-29 06:00] VITALS: BP 125/81; PULSE 68; RESP 17; TEMP 36.7; O2SAT 98
[2021-06-29] MEDS: lamoTRIgine 100 mg Tablet 150 MG PO ×2 (09:36→18:42)
[2021-06-29] MEDS: duloxetine 60 mg Capsule PO ×2 (09:36→18:42)
[2021-06-29] MEDS: nicotine 21 mg Patch 1 PATCH TRANSDERMA (09:37)
[2021-06-29] MEDS: propranolol 20 mg Tablet PO ×2 (09:37→18:42)
[2021-06-29 14:00] VITALS: BP 111/70; PULSE 80; RESP 18; TEMP 36.7; O2SAT 98
[2021-06-29] MEDS: acetaminophen 325 mg Tablet 650 MG PO (14:59)
[2021-06-29] MEDS: tizanidine 4 mg Tablet PO (15:00)
--- NOTE | 2021-06-29 15:00 | W.PM.NPUPNS ---
Subjective NPU Subjective: Interval history: Patient presents today reporting that she feels the change the Geodon has been helpful and she feels more calm. We discussed the risk benefits and alternatives of increasing the Geodon to 20 mg p.o. twice daily and discontinuing the Zyprexa and she understood and agreed to proceed as is documented in this note. We talked about discharge planning and she agreed that when she came she was feeling unstable and that her goal is to be more stable prior to discharge and so we agreed we would continue the conversation surrounding discharge in the morning. Medications: Medication Review Details: This is an overweight versus obese white female in hospital scrubs with adequate grooming and eye contact.? No abnormalities.? Cooperative with exam in acute distress.? Speech was decreased rate and volume.? Mood described as more calm, affect congruent.? Thought process organized.? Thought content: Patient denies suicidal or homicidal ideation,no delusions reported or noted, she denied any auditory or hallucinations.? Attention concentration were intact and memory was reliable but none were formally tested.? She alert oriented x3.? Insight and judgment appeared limited, but improving, impulse control is limited. Vitals/I&O/Wt Last Vital Signs Temp 98.0 F 06/29/21 14:00 Pulse 80 06/29/21 14:00 Resp 18 06/29/21 14:00 BP 111/70 06/29/21 14:00 Pulse Ox 98 06/29/21 14:00 Data NPU : 06/25/21 15:56 06/25/21 15:56 A&P Assessment and plan (1) Borderline personality disorder: Status: Chronic (2) Methamphetamine abuse: Status: Chronic (3) Homicidal ideation: Status: Acute (4) Suicidal ideation: Status: Acute (5) PCOS (polycystic ovarian syndrome): Status: Acute (6) Cluster B personality disorder: Status: Acute (7) Impulse control disorder: Status: Chronic Plan This is a 31-year-old disabled female who has had several hospitalizations and reports lifelong auditory hallucinations Plan: 1.? Continue current medication.? Discontinue olanzapine and increase to Geodon 20 mg p.o. twice daily with meals, Lamictal 150 mg twice daily, Cymbalta 60 mg twice daily and propranolol 20 mg twice daily. 2.? Continue every 15 minute checks for safety. 3.? Encourage individual, group and milieu therapies. 4.? Encourage sober living treatment after discharge at the highest level of care to which she is willing to commit. 5.? We will monitor for safety for herself in the community prior to discharge. Involuntary Hold Information 96 Hour Hold: 96 Hour Involuntary Admission: No Attestations NPU Medical Necessity Statement*: Inpatient hospitalization is medically necessary and the clinically appropriate intervention at this time.? We will initiate medications and make changes as indicated.? Likely to stay 1 to 3 days. 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
[2021-06-29] MEDS: ziprasidone hcl 20 mg Capsule PO ×2 (16:47→18:42)
[2021-06-29 20:50] VITALS: BP 94/60; PULSE 67; RESP 18; TEMP 36.8; O2SAT 96
--- NOTE | 2021-06-29 22:18 | PC.NURSE ---
She refused her HS zyprexa.
[2021-06-30 06:00] VITALS: BP 127/81; PULSE 70; RESP 18; O2SAT 98
[2021-06-30] MEDS: propranolol 20 mg Tablet PO ×2 (10:01→18:31)
[2021-06-30] MEDS: lamoTRIgine 100 mg Tablet 150 MG PO ×2 (10:01→18:31)
[2021-06-30] MEDS: ziprasidone hcl 20 mg Capsule PO ×2 (10:01→18:32)
[2021-06-30] MEDS: duloxetine 60 mg Capsule PO ×2 (10:01→18:32)
[2021-06-30] MEDS: nicotine 21 mg Patch 1 PATCH TRANSDERMA (10:52)
[2021-06-30 14:00] VITALS: BP 135/89; PULSE 87; RESP 16; TEMP 36.6; O2SAT 99
--- NOTE | 2021-06-30 15:31 | P.NPUPN_ITS ---
Subjective NPU Subjective: Interval history: Patient presents today seeming somewhat somnolent likely from the addition of the Geodon to the morning dose. She is now reporting that she is interested in discharging sooner rather than later. We discussed the risk benefits and alternatives of considering decreasing the Zyprexa now that she has the Geodon on board for that option as is documented in this note. We also discussed meeting in the morning and considering discharge considerations if we can make sure that her aftercare has been set up and is in place. Otherwise we talked about a likely discharge at the beginning of the week. Mental Status Exam MSE Comments: This is an overweight versus obese white female in hospital scrubs with adequate grooming and eye contact.? No abnormal movements except for mild psychomotor retardation. Cooperative with exam in mild distress.? Speech was decreased rate and volume.? Mood described as a little better, affect congruent. Thought process organized.? Thought content: Patient denies suicidal or homicidal ideation,no delusions reported or noted, she denied any auditory or hallucinations.? Attention concentration were intact and memory was reliable but none were formally tested.? She alert oriented x3.? Insight and judgment appeared limited, impulse control is limited. Vitals/I&O/Wt Last Vital Signs Temp 97.9 F 06/30/21 14:00 Pulse 87 06/30/21 14:00 Resp 16 06/30/21 14:00 BP 135/89 06/30/21 14:00 Pulse Ox 99 06/30/21 14:00 Data NPU : 06/25/21 15:56 06/25/21 15:56 A&P Assessment and plan (1) Borderline personality disorder: Status: Chronic (2) Methamphetamine abuse: Status: Chronic (3) Homicidal ideation: Status: Acute (4) Suicidal ideation: Status: Acute (5) PCOS (polycystic ovarian syndrome): Status: Acute (6) Cluster B personality disorder: Status: Acute (7) Impulse control disorder: Status: Chronic Plan This is a 31-year-old disabled female who has had several hospitalizations and reports lifelong auditory hallucinations Plan: 1.? Continue current medication.? Consider decreasing or laminating olanzapine and increased to Geodon 20 mg p.o. twice daily with meals, Lamictal 150 mg twice daily, Cymbalta 60 mg twice daily and propranolol 20 mg twice daily. 2.? Continue every 15 minute checks for safety. 3.? Encourage individual, group and milieu therapies. 4.? Encourage sober living treatment after discharge at the highest level of care to which she is willing to commit. 5.? We will monitor for safety for herself in the community prior to discharge. Involuntary Hold Information 96 Hour Hold: 96 Hour Involuntary Admission: No Attestations NPU Medical Necessity Statement*: Inpatient hospitalization is medically necessary and the clinically appropriate intervention at this time.? We will initiate medications and make changes as indicated.? Likely to stay 1 to 3 days. 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
[2021-06-30] MEDS: OLANZapine 5 mg TABLET 10 MG PO (20:32)
[2021-06-30 22:00] VITALS: BP 115/76; PULSE 75; RESP 17; TEMP 36.3; O2SAT 99
[2021-07-01 06:00] VITALS: BP 106/75; PULSE 77; RESP 18; TEMP 36.7; O2SAT 100
--- NOTE | 2021-07-01 08:49 | PC.NURSE ---
Am assessment Patient up to nurses station. She is alert and oriented in all aspects. She denies SI, HI, or hallucinations. Affect is bland and flat. Hr regular in rhythm, ppp x 2, no edema noted. Lungs clear with breathing even and non labored. Bowel sounds active in all quads. Denies pain with urination. Skin is warm and dry. No skin rashes or bruises noted.
[2021-07-01] MEDS: ziprasidone hcl 20 mg Capsule PO ×2 (08:58→18:03)
[2021-07-01] MEDS: propranolol 20 mg Tablet PO ×2 (08:58→18:03)
[2021-07-01] MEDS: lamoTRIgine 100 mg Tablet 150 MG PO ×2 (08:58→18:02)
[2021-07-01] MEDS: duloxetine 60 mg Capsule PO ×2 (08:58→18:02)
[2021-07-01] MEDS: nicotine 21 mg Patch 1 PATCH TRANSDERMA (08:59)
--- NOTE | 2021-07-01 11:01 | PC.NURSE ---
Prn note Patient's mother Sommer called reporting when patient discharges she will d/c to her home. She will need medicaid transport, address is [address] [place] [id number], phone [phone]
--- NOTE | 2021-07-01 11:35 | W.PM.NPUPNS ---
Subjective NPU Subjective: Interval history: Dena presents today feeling very frustrated with being here and wanting to go home. We discussed plans to discontinue the Zyprexa, and she understood and agreed to proceed as is documented in this note. We also discussed increasing her Geodon to 40 milligrams twice a day. We had a discussion about her continued reporting that she is , and that there is no evidence that she is nor has she tested in any way suggesting since she has been here. Her proof was that her stomach was distended, and she was suggesting that was proof of her . Explained to her that nothing about her abdomen suggested , and she was fine with that but saying she wanted to go home. We discussed that our preference would be that we meet with the treatment team in the morning and at least be able to make sure she is scheduled for an appointment after discharge, and that she for sure has access to her medication; and we agreed that we would reach out to her mother to see how her mother feels about her coming home. Spoke with mother to whom she will be returning and she reports that she is fully prepared to take her back however she is with this handbook writer that she is not ready based on the conversations they are having. She reports that her tubes were tied so she could possibly be . Mental Status Exam MSE Comments: This is an obese, white female, with a shaved head, with limited grooming and eye contact. No abnormal movements, except for psychomotor retardation. Semi-cooperative with exam in mild distress. Speech was decreased rate and volume. Mood described as fine/ready to go home; affect subdued. Thought process, organized. Thought content: patient denied suicidal or homicidal ideation, there were no delusions reported but concerns for somatic delusions noted, patient denied auditory or visual hallucinations. Attention, concentration, and memory appeared intact but none were formally tested. Alert and oriented times three. Insight and judgment are limited. Impulse control is limited. Vitals/I&O/Wt Last Vital Signs Temp 98.0 F 07/01/21 06:00 Pulse 77 07/01/21 06:00 Resp 18 07/01/21 06:00 BP 106/75 07/01/21 06:00 Pulse Ox 100 07/01/21 06:00 Weight last 48 hrs Weight 76.476 kg Data NPU : 06/25/21 15:56 06/25/21 15:56 A&P Assessment and plan (1) Borderline personality disorder: Status: Chronic (2) Methamphetamine abuse: Status: Chronic (3) Homicidal ideation: Status: Acute (4) Suicidal ideation: Status: Acute (5) PCOS (polycystic ovarian syndrome): Status: Acute (6) Cluster B personality disorder: Status: Acute (7) Impulse control disorder: Status: Chronic Plan This is a 31-year-old disabled female who has had several hospitalizations and reports lifelong auditory hallucinations Plan: 1. Continue current medication, except: discontinue Zyprexa and increase Geodon to 40 mg po bid with meals, Lamictal 150 mg twice daily, Cymbalta 60 mg twice daily and propranolol 20 mg twice daily. 2.? Continue every 15 minute checks for safety. 3.? Encourage individual, group and milieu therapies. 4.? Encourage sober living treatment after discharge at the highest level of care to which she is willing to commit. 5.? We will monitor for safety for herself in the community prior to discharge. Involuntary Hold Information 96 Hour Hold: 96 Hour Involuntary Admission: No Attestations NPU Medical Necessity Statement*: Inpatient hospitalization is medically necessary and the clinically appropriate intervention at this time.? We will initiate medications and make changes as indicated.? As she is getting more comfortable and less isolative she seems to be more demonstrative of her psychosis. We may need to keep her considerably longer. We will make these medication changes and continue to monitor. Coding Level of Care Code Acute Support Specialist for [facility] Fwd Diagnoses Borderline personality disorder F60.3 Methamphetamine abuse F15.10 Homicidal ideation R45.850 Suicidal ideation R45.851 PCOS (polycystic ovarian syndrome) E28.2 Cluster B personality disorder F60.89 Impulse control disorder F63.9
--- NOTE | 2021-07-01 11:43 | PC.NURSE ---
Prn note Patient noted to be pacing halls, giggling and talking to self. She smiles and rubs head. This staff member asked multiple times if staff could help, if she felt anxious or needed to talk. Patient denied staff attempts to help.
[2021-07-01] MEDS: tizanidine 4 mg Tablet PO (12:05)
[2021-07-01] MEDS: acetaminophen 325 mg Tablet 650 MG PO (12:05)
[2021-07-01 14:00] VITALS: BP 142/73; PULSE 72; RESP 16; TEMP 36.3; O2SAT 99
--- NOTE | 2021-07-01 17:05 | PC.NURSE ---
pts mom called and stated the pt had called her today, saying we had a male discharge from here, whom also had a massive brain tumor. pt has been laughing and talking to self all afternoon
[2021-07-01] MEDS: OLANZapine 5 mg TABLET PO (20:08)
[2021-07-01 20:13] VITALS: BP 115/61; PULSE 75; RESP 19; TEMP 36.8; O2SAT 99
[2021-07-02 05:35] VITALS: BP 115/61; PULSE 75; RESP 19; TEMP 36.8; O2SAT 99
[2021-07-02 05:50] VITALS: BP 121/66; PULSE 66; RESP 16; TEMP 36.8; O2SAT 94
[2021-07-02] MEDS: lamoTRIgine 100 mg Tablet 150 MG PO ×2 (08:57→17:54)
[2021-07-02] MEDS: ziprasidone hcl 20 mg Capsule PO ×2 (08:58→10:36)
[2021-07-02] MEDS: duloxetine 60 mg Capsule PO ×2 (08:58→17:56)
[2021-07-02] MEDS: propranolol 20 mg Tablet PO ×2 (08:58→17:55)
[2021-07-02] MEDS: OLANZapine 5 mg ODT PO (12:03)
[2021-07-02] MEDS: nicotine 21 mg Patch 1 PATCH TRANSDERMA (12:31)
[2021-07-02 13:53] VITALS: BP 119/74; PULSE 79; RESP 18; TEMP 36.4; O2SAT 98
[2021-07-02] MEDS: ziprasidone hcl 20 mg Capsule 40 MG PO (17:55)
--- NOTE | 2021-07-02 19:48 | P.NPUPN_ITS ---
Subjective NPU Subjective: Interval history: Patient presents today reporting that she has tolerated the change in her medication thus far. She denies being overly sedated by the increase in the Geodon. And is fine with the discontinuation of the Zyprexa after a reduction yesterday. She was frustrated earlier in the day because she is really wanting to be discharged. However she continues to struggle with paranoia and somatic delusions and treatment team collaboration with her mother with whom she'll be staying identifies that this level of psychosis is far from baseline. We discussed hopes that the increase in the Geodon will help with her thought disorder. She has been struggling with the antibiotics she had been taking disturbing her normal maureen with significant diarrhea. Mental Status Exam MSE Comments: This is an obese, white female, with a shaved head, with limited grooming and eye contact. No abnormal movements, except for psychomotor retardation. Semi-cooperative with exam in mild distress. Speech was decreased rate and volume. Mood described as fine/ready to go home; affect subdued. Thought process, organized. Thought content: patient denied suicidal or homicidal ideation, there were no delusions reported but concerns for somatic delusions noted, patient denied auditory or visual hallucinations. Attention, concentration, and memory appeared intact but none were formally tested. Alert and oriented times three. Insight and judgment are impaired. Impulse control is limited. Vitals/I&O/Wt Last Vital Signs Temp 97.6 F 07/02/21 20:05 Pulse 74 07/02/21 20:05 Resp 17 07/02/21 20:05 BP 108/71 07/02/21 20:05 Pulse Ox 96 07/02/21 20:05 Weight last 48 hrs Weight 76.476 kg Data NPU : 06/25/21 15:56 06/25/21 15:56 A&P Assessment and plan (1) Borderline personality disorder: Status: Chronic (2) Methamphetamine abuse: Status: Chronic (3) Homicidal ideation: Status: Acute (4) Suicidal ideation: Status: Acute (5) Cluster B personality disorder: Status: Acute (6) Impulse control disorder: Status: Chronic Plan This is a 31-year-old disabled female who has had several hospitalizations and reports lifelong auditory hallucinations Plan: 1.? Continue current medication, except: discontinued Zyprexa and increased Geodon to 40 mg po bid with meals, Lamictal 150 mg twice daily, Cymbalta 60 mg twice daily and propranolol 20 mg twice daily. We'll explore hospital formulary to see if there is any probiotics for her microbiom. 2.? Continue every 15 minute checks for safety. 3.? Encourage individual, group and milieu therapies. 4.? Encourage sober living treatment after discharge at the highest level of care to which she is willing to commit. 5.? We will monitor for safety for herself in the community prior to discharge. Involuntary Hold Information 96 Hour Hold: 96 Hour Involuntary Admission: No Attestations NPU Medical Necessity Statement*: Inpatient hospitalization is medically necessary and the clinically appropriate intervention at this time.? We will initiate medications and make changes as indicated.? As she is getting more comfortable and less isolative she seems to be more demonstrative of her psychosis.? Likely length of stay 3 to 5 days. 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
[2021-07-02 20:05] VITALS: BP 108/71; PULSE 74; RESP 17; TEMP 36.4; O2SAT 96
[2021-07-03 06:00] VITALS: BP 135/86; PULSE 69; RESP 20; TEMP 36.6; O2SAT 98
[2021-07-03] MEDS: lamoTRIgine 100 mg Tablet 150 MG PO ×2 (08:04→18:35)
[2021-07-03] MEDS: ziprasidone hcl 20 mg Capsule 40 MG PO ×2 (08:04→18:35)
[2021-07-03] MEDS: duloxetine 60 mg Capsule PO ×2 (08:05→18:35)
[2021-07-03] MEDS: propranolol 20 mg Tablet PO (08:06)
[2021-07-03] MEDS: acetaminophen 325 mg Tablet 650 MG PO (11:53)
[2021-07-03] MEDS: tizanidine 4 mg Tablet PO (11:54)
[2021-07-03 14:00] VITALS: BP 135/86; PULSE 69; RESP 20; TEMP 36.6; O2SAT 98
[2021-07-03] MEDS: nicotine 21 mg Patch 1 PATCH TRANSDERMA (14:53)
--- NOTE | 2021-07-03 18:35 | P.NPUPN_ITS ---
Subjective NPU Subjective: Interval history: Patient presents today reporting that she is feeling better than she has for a little while. She seemed more rational about when discharged might occur and reported that she is trying to be patient. She reported that her diarrhea is improving and she feels that the Geodon might be helpful. She denied any problems with the reduction in discontinuation of the Zyprexa. She reports is eating okay and sleeping fine. She did not deny being but she did not support the position either. Mental Status Exam MSE Comments: This is an obese, white female, with a shaved head, with limited grooming and eye contact. No abnormal movements, except for improving psychomotor retardation. More cooperative with exam in no acute distress. Speech was more normal rate and volume. Mood described as a little better; affect a little brighter. Thought process, organized. Thought content: patient denied suicidal or homicidal ideation, there were no delusions reported but concerns for somatic delusions noted, patient denied auditory or visual hallucinations. Attention, concentration, and memory appeared intact but none were formally tested. Alert and oriented times three. Insight and judgment are impaired. Impulse control is limited. Vitals/I&O/Wt Last Vital Signs Temp 98.1 F 07/03/21 21:09 Pulse 75 07/03/21 21:09 Resp 17 07/03/21 21:09 BP 120/74 07/03/21 21:09 Pulse Ox 100 07/03/21 21:09 Data NPU : 06/25/21 15:56 06/25/21 15:56 A&P Assessment and plan (1) Borderline personality disorder: Status: Chronic (2) Methamphetamine abuse: Status: Chronic (3) Homicidal ideation: Status: Acute (4) Suicidal ideation: Status: Acute (5) PCOS (polycystic ovarian syndrome): Status: Acute (6) Cluster B personality disorder: Status: Acute (7) Impulse control disorder: Status: Chronic Plan This is a 31-year-old disabled female who has had several ho spitalizations and reports lifelong auditory hallucinations Plan: 1.? Continue current medication, except: discontinued Zyprexa and increased Geodon to 40 mg po bid with meals, Lamictal 150 mg twice daily, Cymbalta 60 mg twice daily and propranolol 20 mg twice daily.? We'll explore hospital formulary to see if there is any probiotics for her microbiom. 2.? Continue every 15 minute checks for safety. 3.? Encourage individual, group and milieu therapies. 4.? Encourage sober living treatment after discharge at the highest level of care to which she is willing to commit. 5.? We will monitor for safety for herself in the community prior to discharge. We will look to discharge in the next 48 hours. Involuntary Hold Information 96 Hour Hold: 96 Hour Involuntary Admission: No Attestations NPU Medical Necessity Statement*: Inpatient hospitalization is medically necessary and the clinically appropriate intervention at this time.? We will initiate medications and make changes as indicated.? As she is getting more comfortable and less isolative she seems to be more demonstrative of her psychosis.? Likely length of stay 1-3 days. Coding Level of Care Code Acute English Language Learner Tutor for [facility] Fwd Diagnoses Borderline personality disorder F60.3 Methamphetamine abuse F15.10 Homicidal ideation R45.850 Suicidal ideation R45.851 PCOS (polycystic ovarian syndrome) E28.2 Cluster B personality disorder F60.89 Impulse control disorder F63.9
[2021-07-03 21:09] VITALS: BP 120/74; PULSE 75; RESP 17; TEMP 36.7; O2SAT 100
[2021-07-04 06:00] VITALS: BP 136/107; PULSE 77; RESP 18; TEMP 36.4; O2SAT 98
[2021-07-04] MEDS: lamoTRIgine 100 mg Tablet 150 MG PO ×2 (08:13→17:17)
[2021-07-04] MEDS: ziprasidone hcl 20 mg Capsule 40 MG PO ×2 (08:14→17:18)
[2021-07-04] MEDS: duloxetine 60 mg Capsule PO ×2 (08:15→17:17)
[2021-07-04] MEDS: propranolol 20 mg Tablet PO ×2 (08:16→17:18)
[2021-07-04] MEDS: tizanidine 4 mg Tablet PO ×2 (08:18→21:40)
[2021-07-04] MEDS: ibuprofen 800 mg tablet PO (08:19)
--- NOTE | 2021-07-04 08:20 | PC.NURSE ---
Ibuprofen 800 mg po given for c/o headache rated 8. Zanafelx 4 mg po given for c/o muscle spasms
[2021-07-04 14:00] VITALS: BP 142/86; PULSE 80; RESP 18; TEMP 36.6; O2SAT 98
--- NOTE | 2021-07-04 18:01 | P.NPUPN_ITS ---
Subjective NPU Subjective: Interval history: Patient presents today reporting that she is excepting of the situation a stance. She has continued to show improvement and her mother was agreeable to connecting with her tomorrow and preparing a place that she will be able to stay at and be assisted with medication consistency etc. We discussed discharge in the morning. Mental Status Exam MSE Comments: This is an obese, white female, with a shaved head, with limited grooming and eye contact. No abnormal movements, except for improving psychomotor retardation.? More cooperative with exam in no acute distress. Speech was more normal rate and volume. Mood described as better; affect congruent. Thought process, organized. Thought content: patient denied suicidal or homicidal ideation, there were no delusions reported with less concerns for somatic delusions, patient denied auditory or visual hallucinations. Attention, concentration, and memory appeared intact but none were formally tested. Alert and oriented times three. Insight and judgment are limited. Impulse control is limited. Vitals/I&O/Wt Last Vital Signs Temp 98 F 07/04/21 22:00 Pulse 73 07/04/21 22:00 Resp 17 07/04/21 22:00 BP 123/66 07/04/21 22:00 Pulse Ox 98 07/04/21 22:00 Data NPU : 06/25/21 15:56 06/25/21 15:56 A&P Assessment and plan (1) Borderline personality disorder: Status: Chronic (2) Methamphetamine abuse: Status: Chronic (3) Homicidal ideation: Status: Acute (4) Suicidal ideation: Status: Acute (5) PCOS (polycystic ovarian syndrome): Status: Acute (6) Cluster B personality disorder: Status: Acute (7) Impulse control disorder: Status: Chronic Plan This is a 31-year-old disabled female who has had several hospitalizations and reports lifelong auditory hallucinations Plan: 1.? Continue current medication, except: discontinued Zyprexa and increased Geodon to 40 mg po bid with meals, Lamictal 150 mg twice daily, Cymbalta 60 mg twice daily and propranolol 20 mg twice daily.? We'll explore hospital formulary to see if there is any probiotics for her microbiom. 2.? Continue every 15 minute checks for safety. 3.? Encourage individual, group and milieu therapies. 4.? Encourage sober living treatment after discharge at the highest level of care to which she is willing to commit. 5.? We will monitor for safety for herself in the community prior to discharge.? Plan for discharge tomorrow. Involuntary Hold Information 96 Hour Hold: 96 Hour Involuntary Admission: No Attestations NPU Medical Necessity Statement*: Inpatient hospitalization is medically necessary and the clinically appropriate intervention at this time.? We will initiate medications and make changes as indicated.? Likely length of stay 1-2 days. 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
--- NOTE | 2021-07-04 21:42 | PC.NURSE ---
Patient requested medication for muscle spasms. Tizanidine was given at 2140
[2021-07-04 22:00] VITALS: BP 123/66; PULSE 73; RESP 17; TEMP 36.6; O2SAT 98
[2021-07-05 06:00] VITALS: BP 129/83; PULSE 69; RESP 18; TEMP 36.7; O2SAT 100
[2021-07-05] MEDS: lamoTRIgine 100 mg Tablet 150 MG PO (08:07)
[2021-07-05] MEDS: duloxetine 60 mg Capsule PO (08:07)
[2021-07-05] MEDS: ziprasidone hcl 20 mg Capsule 40 MG PO (08:07)
[2021-07-05] MEDS: propranolol 20 mg Tablet PO (08:07)
--- NOTE | 2021-07-05 08:47 | DCPLANNER ---
IMM completed on 07/05/21 @ [id number]. Pt was given a copy of rights and she stated she understood.
[2021-07-05] MEDS: OLANZapine 5 mg ODT PO (09:37)
[2021-07-05] MEDS: hyDROXYzine 25 mg Capsule 50 MG PO (09:37)
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
[2021-07-05 10:17] VITALS: BP 129/83; PULSE 69; RESP 18; TEMP 36.7; O2SAT 100
== END 2021-07-05 12:55 | disposition home or self-care (01) | DRG 883 ==
LOC: ER 21:03 → NP 21:31
PROVIDERS: Admitting Provider Psychiatry & Neurology Psychiatry; Emergency Provider Emergency Medicine; Visit Provider Psychiatry & Neurology Psychiatry
DX: F60.3 Borderline personality disorder (principal); R45.851 Suicidal ideations; R45.850 Homicidal ideations; F17.210 Nicotine dependence, cigarettes, uncomplicated; F10.21 Alcohol dependence, in remission; F15.10 Other stimulant abuse, uncomplicated; Z91.19 Patient's noncompliance with other medical treatment and regimen; F63.9 Impulse disorder, unspecified; F60.89 Other specific personality disorders
CPT/HCPCS: 71045; 80053; 80306; 80307; 81003; 81025; 84443; 85025; 87635; 93005; 97150; 97165; 99285

== ENCOUNTER 2021-07-21 21:13 | Inpatient (IN) | payer MEDICARE, MEDICAID, SELFPAY ==
[2021-07-21 21:15] VITALS: BP 166/100; PULSE 70; RESP 16; TEMP 36.6; O2SAT 96; BMI 28.3
--- NOTE | 2021-07-21 21:33 | ED.C_ITS ---
HPI - Psych General: Chief Complaint: Psychiatric Symptoms Stated Complaint: si/hi Time Seen by Provider: 07/21/21 21:18 Source: patient Mode of arrival: EMS Limitations: no limitations History of Present Illness: This patient presents to the emergency department via EMS. She called EMS because she is having thoughts of harming herself. She has no specific plan in mind but states that she does not feel safe in her current environment. She apparently lives with her family and feels like her brother is giving her a lot of grief and she is also having auditory hallucinations. She denies street drugs. She denies alcohol. She states she feels sort of out of body and not herself. She states she has been faithful to her prescribed medications. MD complaint: suicidal ideation and feels depressed Duration: getting worse History of same: Yes Associated psychiatric symptoms: depression, suicidal ideation and auditory hallucinations Associated symptoms: Reports auditory hallucinations, depression and suicidal ideation; Deny visual hallucinations If self harm: admits thoughts of self harm Review of Systems Const: Denies: fever(s), chills, body aches or change in appetite Eyes: Denies: change in vision or blurry vision ENMT: Reports: uvular edema; Denies: throat pain, odynophagia, hoarseness, nasal congestion or nasal obstruction Card: Denies: chest pain Resp: Denies: dyspnea, productive cough or non-productive cough GI: Denies: abdominal pain, nausea or vomiting : Denies: flank pain, difficulty voiding, urinary urgency or urinary hesitancy Musc: Denies: neck pain, back pain, extremity pain, extremity swelling or joint pain Skin/Breast: Denies: rash Neuro: Denies: headache(s), numbness in extremities or weakness in extremities Psych: Reports: depression, mood swings, sleeping less, auditory hallucinations and suicidal ideation; Denies: visual hallucinations Endo: Denies: polyuria or polydipsia Renny/Lymph: Denies: easy bruising or easy bleeding All/Imm: Denies: urticaria PFSH ED PFSH: Medical History Abnormal uterine bleeding (AUB) Amenorrhea Complex cyst of right ovary Oligomenorrhea Uterine bleeding Family History Father Colon cancer onset unknown Hyperlipidemia Heart disease Hypertension Family/Other No problems noted. 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 Female Reproductive History: Date of last menstrual period: 01/27/21 Physical Exam Narrative: EXAM NARRATIVE: The patient generally makes good eye contact although she does glance about the room with speaking to me. She will answer questions in a goal-directed fashion although occasionally is somewhat evasive. Const: COMMON NORMALS: no acute distress and patient oriented x3 GENERAL APPEARANCE: cooperative and well kempt HENMT: COMMON NORMALS: normocephalic, atraumatic, Normal nasal mucous membranes and turbinates present, moist oral mucous membranes and oropharynx normal HEAD & SCALP: normocephalic and atraumatic NOSE: Normal nasal mucous membranes and turbinates present THROAT: uvular edema Eye: COMMON NORMALS: Equal, round and reactive pupils present, EOMs intact bilaterally, conjunctivae normal and no scleral icterus CONJUNCTIVA: Yes conjunctivae normal PUPIL: Yes Equal, round and reactive pupils present Neck/C-Spine: COMMON NORMALS: full ROM, no lymphadenopathy, supple and Thyroid normal THYROID: Thyroid normal Chest: COMMONS NORMALS: normal inspection of the chest Resp: COMMON NORMALS: normal respiratory effort, No use of accessory muscles and clear to auscultation bilaterally AUSCULTATION: clear to auscultation bilaterally Cardio: COMMON NORMALS: regular rate and Peripheral pulses 2+ throughout RATE: regular rate PERIPHERAL PULSES: Peripheral pulses 2+ throughout GI: COMMON NORMALS: Normal to inspection, nondistended, normoactive bowel sounds present : COMMON NORMALS: Yes no CVA tenderness BLADDER/KIDNEY EXAM: Yes no CVA tenderness Back/Pelvis: COMMON NORMALS: no CVA tenderness, thoracic and lumbar spine normal to inspection, no thoracic nor lumbar tenderness and thoraco-lumbar ROM normal Extremity: COMMON NORMALS: normal to inspection, full ROM, capillary refill normal, no calf tenderness and no pedal edema Neuro: COMMON NORMALS: patient oriented x3, moves all extremities, no focal motor deficits, no sensory deficits noted and gait normal Psych: COMMON NORMALS: mental status grossly normal and speech normal APPEARANCE: Yes well kempt ATTITUDE: Yes calm and Yes evasive ACTIVITY/MOTOR BEHAVIOR: Yes appropriate eye contact SPEECH: Yes normal speech MOOD & AFFECT: Yes depressed mood and Yes sad THOUGHT PROCESS: Circumstantial thought process present THOUGHT CONTENT: Yes Suicidality present, Yes Hallucination(s) present and Yes Ideas of reference present (thought content) ATTENTION/CONCENTRATION: Yes attention grossly intact INSIGHT: Limited insight present (Psych) JUDGEMENT: Limited judgement present (Psych) Skin: COMMON NORMALS: turgor normal NARRATIVE SKIN EXAM: She has a few isolated excoriated papules on her face. No other skin lesions noted. GENERAL SKIN EXAM: turgor normal Course Consultations: Consultation #1: Discussed with Dr. Low attending psychiatrist Time: 22:10 Vital Signs: Vital signs: Vital Signs Temperature 97.9 F 07/21/21 21:15 Pulse Rate 70 07/21/21 21:15 Respiratory Rate 16 07/21/21 21:15 Blood Pressure 166/100 07/21/21 21:15 Pulse Oximetry 96 07/21/21 21:15 MDM - Psych Medical Decision Making Patient with longstanding history of bipolar disorder who now presents to the emergency department with thoughts of self-harm with some thought insertion, id eas of reference and auditory hallucinations. She is currently medically stable for further observation and admission. Discussed with attending psychiatrist who agreed to admit her. Medical Records I reviewed the patient's medical records. Lab Data I reviewed the patient's lab results. : 07/21/21 21:27 07/21/21 21: Laboratory Results WBC 13.1 10^3/uL (4.0-10.0) H 07/21/21 21: RBC 4.99 10^6/uL (4.1-5.3) 07/21/21 21: Hgb 14.9 g/dL (11.5-15.3) 07/21/21 21: Hct 44.8 % (37.0-47.0) 07/21/21 21: MCV 89.8 fl (81-99) 07/21/21 21: MCH 29.9 pg (28.0-34.0) 07/21/21: MCHC 33.3 g/dL (30.0-36.0) 07/21/21: RDW 14.5 % (12.1-15.1) 07/21/21 21: Plt Count 292 10^3/cmm (130-400) 07/21/21 21: MPV 10.2 fL (7.4-10.4) 07/21/21: Neut % (Auto) 58.9 % 07/21/21: Lymph % (Auto) 33.5 % 07/21/21: [place] % (Auto) 5.4 % 07/21/21: Eos % (Auto) 1.5 % 07/21/21: Baso % (Auto) 0.4 % 07/21/21: Neut # (Auto) 7.72 10^3/uL (1.8-7.7) H 07/21/21: Lymph # (Auto) 4.4 10^3/uL (0.8-4.8) 07/21/21: [place] # (Auto) 0.7 10^3/uL (0.2-0.9) 07/21/21: Eos # (Auto) 0.2 10^3/uL (0.0-0.8) 07/21/21: Baso # (Auto) 0.1 10^3/uL (0.0-0.1) 07/21/21: Nucleated RBC % (auto) 0 % 07/21/21: Nucleated RBCs # 0.0 /100WBC 07/21/21: Sodium 138 mmol/L (136-145) 07/21/21: Potassium 3.4 mmol/L (3.5-5.1) L 07/21/21: Chloride 101 mmol/L (98-107) 07/21/21 21: Carbon Dioxide 23 mmol/L (22-29) 07/21/21: Anion Gap 17.4 (5-19) 07/21/21: BUN 16 mg/dL (6-20) 07/21/21:27 Creatinine 0.7 mg/dL (0.5-0.9) 07/21/21 21: GFR Calculation 96.4 mL/min (90-130) 07/21/21 21: Glucose 85 mg/dL (65-115) 07/21/21 21: Calculated Osmolality 286 mOsm/kg (285-295) 07/21/21 21: Calcium 10.4 mg/dL (8.5-10.5) 07/21/21 21: Total Bilirubin 0.3 mg/dL (0.15-1.2) 07/21/21 21: AST 11 U/L (0-32) 07/21/21 21: ALT 9 U/L (0-33) 07/21/21 21: Alkaline Phosphatase 99 IU/L (35-105) 07/21/21 21: Total Protein 8.3 g/dL (6.6-8.7) 07/21/21 21: Albumin 5.1 g/dL (3.5-5.2) 07/21/21 21: Globulin 3.2 g/dL (1.3-4.6) 07/21/21 21:27 HCG, Qual Negative (Negative) 07/21/21 21: Salicylates < 0.3 mg/dL (3-10) L 07/21/21 21:27 Urine Opiates Screen Negative ng/mL (Negative) 07/21/21 21:30 Acetaminophen < 5.0 ug/mL (10-30) L 07/21/21 21:27 Ur Barbiturates Screen Negative ng/mL (Negative) 07/21/21 21:30 Ur Phencyclidine Scrn Negative ng/mL (Negative) 07/21/21 21:30 Ur Amphetamines Screen Negative ng/mL (Negative) 07/21/21 21:30 U Benzodiazepines Scrn Negative ng/mL (Negative) 07/21/21 21:30 Urine Cocaine Screen Negative ng/mL (Negative) 07/21/21 21:30 U Marijuana (THC) Screen Positive ng/mL (Negative) H 07/21/21 21:30 Discharge Plan Discharge Patient Disposition: Admitted As Inpatient Clinical Impression: Borderline personality disorder, Suicidal ideation Condition: Stable Coding Level of Care Code ED Residential Coordinator for [facility] Fwd Exam Comprehensive
[2021-07-21 21:39] LABS: Basophils # 0.1 10^3/uL (0.0-0.1); Basophils % 0.4 %; Eosinophils # 0.2 10^3/uL (0.0-0.8); Eosinophils % 1.5 %; Hematocrit 44.8 % (37.0-47.0); Hemoglobin 14.9 g/dL (11.5-15.3); Lymphocytes # 4.4 10^3/uL (0.8-4.8); Lymphocytes % 33.5 %; Mean Corpuscular HGB Conc 33.3 g/dL (30.0-36.0); Mean Corpuscular Hemoglobin 29.9 pg (28.0-34.0); Mean Corpuscular Volume 89.8 fl (81-99); Mean Platelet Volume 10.2 fL (7.4-10.4); Monocytes # 0.7 10^3/uL (0.2-0.9); Monocytes % 5.4 %; Neutrophils # 7.72 10^3/uL (1.8-7.7); Neutrophils % 58.9 %; Nucleated Red Blood Cells % 0 %; Platelet Count 292 10^3/cmm (130-400); Red Blood Count 4.99 10^6/uL (4.1-5.3); Red Cell Distribution Width 14.5 % (12.1-15.1); White Blood Count 13.1 10^3/uL (4.0-10.0)
--- NOTE | 2021-07-21 21:45 | PC.NURSE ---
[facility]
[2021-07-21 21:55] LABS: HCG, Serum Qual Negative (Negative)
[2021-07-21 22:01] LABS: Amphetamines Screen Urine Negative (Negative); Barbiturates Screen Urine Negative (Negative); Benzodiazepines Screen Urine Negative (Negative); Cocaine Screen Urine Negative (Negative); Opiate Screen Urine Negative (Negative); PCP Screen Urine Negative (Negative); THC Screen Urine Positive (Negative)
[2021-07-21 22:04] LABS: Acetaminophen < 5.0 ug/mL (10-30); Alanine Aminotransferase 9 U/L (0-33); Albumin Level 5.1 g/dL (3.5-5.2); Alkaline Phosphatase 99 IU/L (35-105); Anion Gap 17.4 (5-19); Aspartate Amino Transferase 11 U/L (0-32); Blood Urea Nitrogen 16 mg/dL (6-20); Calcium 10.4 mg/dL (8.5-10.5); Carbon Dioxide 23 mmol/L (22-29); Chloride 101 mmol/L (98-107); Globulin 3.2 g/dL (1.3-4.6); Glomerular Filtration Rate 96.4 mL/min (90-130); Glucose 85 mg/dL (65-115); Osmolality Calculated 286 mOsm/kg (285-295); Potassium 3.4 mmol/L (3.5-5.1); Salicylate < 0.3 mg/dL (3-10); Sodium 138 mmol/L (136-145); Total Bilirubin 0.3 mg/dL (0.15-1.2); Total Protein 8.3 g/dL (6.6-8.7)
[2021-07-21 22:11] VITALS: BP 136/110; PULSE 78; RESP 20; TEMP 36.7; O2SAT 100
[2021-07-21 23:11] VITALS: BP 133/84; RESP 16
--- NOTE | 2021-07-22 00:11 | PC.NURSE ---
patient reports increasing SI, HI with no plan. she does endorse auditory and visual hallucinations that have been increasing over the last month. she was in [facility] several weeks ago with similar complaints. she lives with family who help take care of her. she reports she does not currently use drugs or alcohol, she states she uses marijuana on occasion and last use was 2 months ago. currently attending [facility] for outpatient psychiatric treatment. she does have a history of suicide attempt by OD.
--- NOTE | 2021-07-22 04:15 | PC.ADMIT ---
[address] Admission Note:patient reports increasing SI, HI with no plan. she does endorse auditory and visual hallucinations that have been increasing over the last month. she was in [facility] several weeks ago with similar complaints. she lives with family who help take care of her. she reports she does not currently use drugs or alcohol, she states she uses marijuana on occasion and last use was 2 months ago. currently [facility]. she does have a history of suicide attempt by OD. The patient,Dena Greene,31 y/o, was given written information regarding hospital policies, unit procedures and contact persons. Patient's smoking status: current every day smoker. Vital Signs - 8 hr 07/21/21 21:15 07/21/21 22:11 07/21/21 23:11 Temperature 97.9 F 98.0 F Pulse Rate 70 78 Respiratory Rate 16 20 H 16 Blood Pressure 166/100 136/110 133/84 Pulse Oximetry 96 100
[2021-07-22 06:00] VITALS: BMI 28.3
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
[2021-07-22] MEDS: propranolol 20 mg Tablet PO ×2 (09:11→17:01)
[2021-07-22] MEDS: lamoTRIgine 100 mg Tablet 150 MG PO ×2 (09:11→17:01)
[2021-07-22] MEDS: duloxetine 60 mg Capsule PO ×2 (09:11→17:01)
[2021-07-22] MEDS: ziprasidone hcl 60 mg Capsule PO ×2 (09:13→17:01)
[2021-07-22 14:00] VITALS: BP 110/66; PULSE 78; RESP 18; TEMP 37.2; O2SAT 99
[2021-07-22 20:01] VITALS: BP 110/65; PULSE 78; RESP 19; TEMP 36.8; O2SAT 99
[2021-07-23 06:00] VITALS: BP 116/84; PULSE 70; RESP 20; TEMP 37; O2SAT 98
--- NOTE | 2021-07-23 08:07 | W.PM.NPUPNS ---
Subjective NPU Subjective: She says that she slept well last night and feels a little better this morning. She continues to have auditory hallucinations and suicidal ideation. Today will be the first day on the increased dose of Geodon 60 mg twice a day. Mental Status Exam MSE Comments: This is a 31-year old overweight female who appears approximately her stated age and is in no acute distress. She was in bed but more awake today. She had poor eye but better. psychomotor activity is decreased but probably appropriate for someone who is sleepy and in bed. Speech is at a regular rate and rhythm, normal volume, good articulation, not pressured. Alert, oriented X3 Attention and concentration somewhat decreased because she is sleepy and does not want to be bothered Memory is intact Mood is depressed. Affect is dysphoric. Thought process is logical and goal-directed. Thought content: Reports auditory but no visual hallucinations. No delusions or paranoia are noted. She reports current suicidal ideation but no specific plan and no homicidal ideation. Fund of knowledge is average to possibly decreased. Insight and judgment appear to be poor. Impulse control is poor. Cognition: Patient Appearance: Appropriate Level of Consciousness: Awake and Alert Patient Cognition Impaired: No Ability to Follow Directions: Good Patient Orientation (long list): Person, Place, Time, Name, Age, Birthday, Day of Month, Day of Week, Month, Time of Day and Year Comprehension Ability: No Impairment Hallucination Type: Auditory and Visual Delusion Description: Not Present Thought Process: Circumstantial Affect: Affect Description: [place] and Depressed Depressive Symptoms: Difficulty Concentrating and Difficulty Sleeping Behavior: Patient Behavior: Appropriate Speech Pattern: Appropriate Vitals/I&O/Wt Last Vital Signs Temp 98.6 F 07/23/21 06:00 Pulse 70 07/23/21 06:00 Resp 20 H 07/23/21 06:00 BP 116/84 07/23/21 06:00 Pulse Ox 98 07/23/21 06:00 Weight last 48 hrs Weight 68.039 kg Weight 68.039 kg Data NPU : 07/21/21 21:27 07/21/21 21:27 A&P Assessment and plan (1) Borderline personality disorder: Status: Chronic (2) Suicidal ideation: Status: Acute (3) Methamphetamine abuse: Status: Chronic (4) PCOS (polycystic ovarian syndrome): Status: Acute (5) Impulse control disorder: Status: Chronic Plan this is a 31-year-old female who has had several hospitalizations recently but denies many in the past. She reports auditory hallucinations and suicidal ideation Plan: 1. Continue current medication. Increase Geodon to 60 mg twice daily 2. Continue every 15 minute checks for safety. 3. Encourage individual, group and milieu therapies. 4. Encourage sober living treatment after discharge at the highest level of care to which she is willing to commit. 5. We will monitor for safety for herself in the community prior to discharge. Involuntary Hold Information 96 Hour Hold: 96 Hour Involuntary Admission: No Attestations NPU Medical Necessity Statement*: Inpatient hospitalization is medically necessary and the clinically appropriate intervention at this time. We will initiate medications and make changes as indicated. Coding Level of Care Code Acute Wafer Fabrication Technician for Adelia Cat Diagnoses Borderline personality disorder F60.3 Suicidal ideation R45.851 Methamphetamine abuse F15.10 PCOS (polycystic ovarian syndrome) E28.2 Impulse control disorder F63.9
[2021-07-23] MEDS: propranolol 20 mg Tablet PO ×2 (09:11→20:17)
[2021-07-23] MEDS: lamoTRIgine 100 mg Tablet 150 MG PO ×2 (09:11→20:17)
[2021-07-23] MEDS: duloxetine 60 mg Capsule PO ×2 (09:11→20:17)
[2021-07-23] MEDS: ziprasidone hcl 60 mg Capsule PO ×2 (09:11→16:34)
--- NOTE | 2021-07-23 11:30 | NPU.GN ---
[facility] Topic:Mental Health discussion General Mood of Group: Dena did not attend group this morning she wanted to sleep.
[2021-07-23 14:00] VITALS: BP 110/70; PULSE 72; RESP 17; TEMP 36.4; O2SAT 98
[2021-07-23 21:08] VITALS: BP 119/71; PULSE 84; RESP 18; TEMP 37; O2SAT 98
[2021-07-24 06:00] VITALS: BP 112/78; PULSE 83; RESP 18; TEMP 36.6; O2SAT 100
[2021-07-24] MEDS: ziprasidone hcl 60 mg Capsule PO ×2 (06:30→16:46)
[2021-07-24] MEDS: duloxetine 60 mg Capsule PO ×2 (08:26→21:20)
[2021-07-24] MEDS: lamoTRIgine 100 mg Tablet 150 MG PO ×2 (08:26→21:15)
[2021-07-24] MEDS: propranolol 20 mg Tablet PO (08:27)
[2021-07-24] MEDS: nicotine 21 mg Patch 1 PATCH TRANSDERMA (08:28)
--- NOTE | 2021-07-24 10:46 | NPU.GN ---
[facility] Topic:Positive Coping Skills General Mood of Group: Dena did not attend group today.
--- NOTE | 2021-07-24 13:27 | P.NPUPN_ITS ---
Subjective NPU Subjective: Apparently she says that her auditory hallucinations are about 50% better since arrival. They were relatively bit better yesterday but they are significantly better today. She denies any suicidal ideation. She has not had any side effects from the Geodon 60 mg twice a day. We will see how she is doing tomorrow and consider discharge. Mental Status Exam MSE Comments: This is a 31-year old overweight female who appears approximately her stated age and is in no acute distress. She was up and sitting on the side of the bed at 1:15 PM eye contact is better today. psychomotor activity is normal Speech is at a regular rate and rhythm, normal volume, good articulation, not pressured. Alert, oriented X3 Attention and concentration somewhat decreased because she is sleepy and does not want to be bothered Memory is intact Mood is mildly depressed. Affect is mildly dysphoric. Thought process is logical and goal-directed. Thought content: Reports auditory but no visual hallucinations. No delusions or paranoia are noted. She denies suicidal ideation and homicidal ideation. Fund of knowledge is average to possibly decreased. Insight and judgment appear to be fair. Impulse control is fair. Cognition: Patient Appearance: Appropriate Level of Consciousness: Awake and Alert Patient Cognition Impaired: No Ability to Follow Directions: Good Patient Orientation (long list): Person, Place, Time, Name, Age, Birthday, Day of Month, Day of Week, Month, Time of Day and Year Comprehension Ability: No Impairment Hallucination Type: None Delusion Description: Not Present Thought Process: Circumstantial Affect: Affect Description: Appropriate Depressive Symptoms: Difficulty Concentrating and Difficulty Sleeping Behavior: Patient Behavior: Appropriate Speech Pattern: Appropriate Vitals/I&O/Wt Last Vital Signs Temp 97.9 F 07/24/21 06:00 Pulse 83 07/24/21 06:00 Resp 18 07/24/21 06:00 BP 112/78 07/24/21 06:00 Pulse Ox 100 07/24/21 06:00 Data NPU : 07/21/21 21:27 07/21/21 21:27 A&P Assessment and plan (1) Borderline personality disorder: Status: Chronic (2) Suicidal ideation: Status: Acute (3) Methamphetamine abuse: Status: Chronic (4) PCOS (polycystic ovarian syndrome): Status: Acute (5) Impulse control disorder: Status: Chronic Plan this is a 31-year-old female who has had several hospitalizations recently but denies many in the past. She reports auditory hallucinations and suicidal ideation Plan: 1. Continue current medication. Geodon to 60 mg twice daily 2. Continue every 15 minute checks for safety. 3. Encourage individual, group and milieu therapies. 4. Encourage sober living treatment after discharge at the highest level of care to which she is willing to commit. 5. We will monitor for safety for herself in the community prior to discharge. Involuntary Hold Information 96 Hour Hold: 96 Hour Involuntary Admission: No Attestations U Medical Necessity Statement*: Inpatient hospitalization is medically necessary and the clinically appropriate intervention at this time. We will initiate medications and make changes as indicated. Coding Level of Care Code Acute [place] Press Operator for Adelia Fwd Diagnoses Borderline personality disorder F60.3 Suicidal ideation R45.851 Methamphetamine abuse F15.10 PCOS (polycystic ovarian syndrome) E28.2 Impulse control disorder F63.9
[2021-07-24 17:14] VITALS: BP 115/79; PULSE 75; RESP 16; TEMP 36.6; O2SAT 99
[2021-07-24] MEDS: acetaminophen 325 mg Tablet 650 MG PO (17:20)
[2021-07-24] MEDS: trazodone 50 mg Tablet PO (17:20)
[2021-07-24 22:00] VITALS: BP 115/79; PULSE 75; RESP 16; O2SAT 99
[2021-07-25 06:00] VITALS: BP 122/85; PULSE 78; RESP 18; TEMP 36.4; O2SAT 99
[2021-07-25] MEDS: ziprasidone hcl 60 mg Capsule PO (06:10)
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
--- NOTE | 2021-07-25 08:53 | DCPLANNER ---
IMM completed with pt and copy of rights given to pt.
[2021-07-25] MEDS: acetaminophen 325 mg Tablet 650 MG PO (09:35)
[2021-07-25] MEDS: duloxetine 60 mg Capsule PO (09:36)
[2021-07-25] MEDS: propranolol 20 mg Tablet PO (09:36)
[2021-07-25] MEDS: lamoTRIgine 100 mg Tablet 150 MG PO (09:36)
[2021-07-25] MEDS: nicotine 21 mg Patch 1 PATCH TRANSDERMA (09:37)
[2021-07-25 09:50] VITALS: BP 122/85; PULSE 78; RESP 18; TEMP 36.4; O2SAT 99
[2021-07-25 09:59] VITALS: BP 122/85; PULSE 78; RESP 18; TEMP 36.4; O2SAT 99
--- NOTE | 2021-07-25 10:33 | DCPLANNER ---
Imm was completed and pt. was given copy of medicare rights and explained to her.
--- NOTE | 2021-07-25 11:18 | NPU.GN ---
[facility] Topic:Positive Thoughts/ Negative Thoughts General Mood of Group: Dena did attend a short part of the group. Her hygiene is poor and she did not participate much in group.
== END 2021-07-25 14:10 | disposition home or self-care (01) | DRG 883 ==
LOC: ER 22:43 → NP 23:04
PROVIDERS: Admitting Provider Psychiatry & Neurology Psychiatry; Emergency Provider Emergency Medicine; Visit Provider Psychiatry & Neurology Psychiatry
DX: F60.3 Borderline personality disorder (principal); R45.851 Suicidal ideations; R44.0 Auditory hallucinations; F63.9 Impulse disorder, unspecified; F15.10 Other stimulant abuse, uncomplicated; E28.2 Polycystic ovarian syndrome; G31.84 Mild cognitive impairment of uncertain or unknown etiology; F17.210 Nicotine dependence, cigarettes, uncomplicated; Z62.810 Personal history of physical and sexual abuse in childhood; Z63.8 Other specified problems related to primary support group
CPT/HCPCS: 80053; 80306; 80307; 84703; 85025; 97150; 97165; 99285

== ENCOUNTER 2021-11-24 20:41 | Inpatient (IN) | payer MEDICARE, MEDICAID, SELFPAY ==
[2021-11-24 20:42] VITALS: BP 118/52; PULSE 72; RESP 18; TEMP 36.5; O2SAT 97; BMI 33.0
--- NOTE | 2021-11-24 20:47 | W.ED.PSYCHS ---
HPI - Psych General: Chief Complaint: Psychiatric Symptoms Stated Complaint: SI/DEPRESSION Time Seen by Provider: 11/24/21 20:43 History of Present Illness: 31-year-old presents due to depression and homicidal ideation. She denies suicidal ideation to me but states that for the last week she has been more more depressed and sleeping more frequently. Denies any fevers or chills. Denies any illicit substance use. However she does states she has been arguing more with her brother and thinks she might hurt him due to she does not have a concrete plan. Review of Systems Narrative: - CONSTITUTIONAL: Denies weight loss, fever and chills. - HEENT: Denies changes in vision and hearing. - RESPIRATORY: Denies SOB and cough. - CV: Denies palpitations and CP. - GI: Denies abdominal pain, nausea, vomiting and diarrhea. - : Denies dysuria and urinary frequency. - MSK: Denies myalgia and joint pain. - SKIN: Denies rash and pruritus. - NEUROLOGICAL: Denies headache, weakness, numbness and syncope. - PSYCHIATRIC: As above PFSH ED PFSH: Medical History Abnormal uterine bleeding (AUB) Amenorrhea Complex cyst of right ovary Oligomenorrhea Uterine bleeding Family History Father Colon cancer onset unknown Hyperlipidemia Heart disease Hypertension Family/Other No problems noted. 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 Female Reproductive History: Date of last menstrual period: 01/27/21 Physical Exam Narrative: EXAM NARRATIVE: - GENERAL: Alert and oriented x 3. No acute distress. Well-nourished. - EYES: EOMI. Anicteric. - HENT: Atraumatic, no C-spine tenderness. Moist mucous membranes. No scleral icterus. No cervical lymphadenopathy. - LUNGS: Clear to auscultation bilaterally. No accessory muscle use. Equal lung sounds bilaterally. No respiratory distress. - CARDIOVASCULAR: Regular rate and rhythm. No murmur. No JVD. - ABDOMEN: Soft, non-tender and non-distended. Negative CVA tenderness bilaterally, no rebound or guarding, negative Moses sign. No palpable masses. - EXTREMITIES: No edema. Non-tender. - SKIN: No rashes or lesions. Warm. - NEUROLOGIC: No meningismus or focal neurological deficits. CN II-XII grossly intact. - PSYCHIATRIC: Appears depressed, endorses homicidal ideation. Denies suicidal ideation. Course Vital Signs: Vital signs: Vital Signs Temperature 97.7 F 11/24/21 20:42 Pulse Rate 72 11/24/21 20:42 Respiratory Rate 18 11/24/21 20:42 Blood Pressure 118/52 11/24/21 20:42 Pulse Oximetry 97 11/24/21 20:42 MDM - Psych Medical Decision Making 31-year-old presents with depression. Does admit to wanting to hurt her brother. Denies suicidal ideation. Patient denies drug use to me but UDS is positive for amphetamines and marijuana though she does not appear to be under any acute toxidrome is noted. Psychotic or agitated. She denies any chest pain or shortness of breath. Does complain of continued fatigue over the last week. Discussed with psychiatry and they agreed patient would benefit from admission. Patient admitted in stable condition. Further evaluation management per psychiatry team. Lab Data : 11/24/21 20:47 11/24/21 20:47 Laboratory Results WBC 8.8 10^3/uL (4.0-10.0) 11/24/21 20:47 RBC 4.69 10^6/uL (4.1-5.3) 11/24/21 20:47 Hgb 14.3 g/dL (11.5-15.3) 11/24/21 20:47 Hct 42.8 % (37.0-47.0) 11/24/21 20:47 MCV 91.3 fl (81-99) 11/24/21 20:47 MCH 30.5 pg (28.0-34.0) 11/24/21 20:47 MCHC 33.4 g/dL (30.0-36.0) 11/24/21 20:47 RDW 13.6 % (12.1-15.1) 11/24/21 20:47 Plt Count 280 10^3/cmm (130-400) 11/24/21 20:47 MPV 10.5 fL (7.4-10.4) H 11/24/21 20:47 Neut % (Auto) 39.3 % 11/24/21 20:47 Lymph % (Auto) 51.8 % 11/24/21 20:47 [place] % (Auto) 6.0 % 11/24/21 20:47 Eos % (Auto) 2.0 % 11/24/21 20:47 Baso % (Auto) 0.7 % 11/24/21 20:47 Neut # (Auto) 3.46 10^3/uL (1.8-7.7) 11/24/21 20:47 Lymph # (Auto) 4.6 10^3/uL (0.8-4.8) 11/24/21 20:47 [place] # (Auto) 0.5 10^3/uL (0.2-0.9) 11/24/21 20:47 Eos # (Auto) 0.2 10^3/uL (0.0-0.8) 11/24/21 20:47 Baso # (Auto) 0.1 10^3/uL (0.0-0.1) 11/24/21 20:47 Nucleated RBC % (auto) 0 % 11/24/21 20:47 Nucleated RBCs # 0.0 /100WBC 11/24/21 20:47 HCG, Qual Negative (Negative) 11/24/21 20:56 Urine Color Yellow (Yellow) 11/24/21 20:56 Urine Appearance Clear (CLEAR) 11/24/21 20:56 Urine pH 5 (5-7) 11/24/21 20:56 Ur Specific [place] 1.020 (1.005-1.030) 11/24/21 20:56 Urine Protein Neg (Negative) 11/24/21 20:56 Urine Glucose (UA) Norm (Normal) 11/24/21 20:56 Urine Ketones Negative (Negative) 11/24/21 20:56 Urine Blood 3+ (Negative) H 11/24/21 20:56 Urine Nitrate Negative (Negative) 11/24/21 20:56 Urine Bilirubin Neg (Negative) 11/24/21 20:56 Urine Urobilinogen 1 mg/dL (Negative) H 11/24/21 20:56 Ur Leukocyte Esterase Negative (Negative) 11/24/21 20:56 Urine Opiates Screen Negative ng/mL (Negative) 11/24/21 20:56 Ur Barbiturates Screen Negative ng/mL (Negative) 11/24/21 20:56 Ur Phencyclidine Scrn Negative ng/mL (Negative) 11/24/21 20:56 Ur Amphetamines Screen Positive ng/mL (Negative) H 11/24/21 20:56 U Benzodiazepines Scrn Negative ng/mL (Negative) 11/24/21 20:56 Urine Cocaine Screen Negative ng/mL (Negative) 11/24/21 20:56 U Marijuana (THC) Screen Positive ng/mL (Negative) H 11/24/21 20:56 Discharge Plan Discharge Condition: Stable Prescriptions: No Action ibuprofen 800 mg tablet 800 mg PO BID PRN (Reason: Pain) 0RF lamotrigine 150 mg tablet 150 mg PO BID 30 Days Qty: 60 1RF tizanidine [Zanaflex] 4 mg tablet 4 mg PO Q8H MDD 3 tabs PRN (Reason: Muscle Spasm) 30 Days Qty: 90 0RF propranolol 20 mg tablet 20 mg PO BID 30 Days Qty: 60 1RF duloxetine [Cymbalta] 60 mg capsule,delayed release(DR/EC) 60 mg PO BID 30 Days Qty: 60 1RF trazodone 50 mg Tablet 50 mg PO BEDTIME PRN (Reason: Sleep) 30 Days Qty: 30 1RF ziprasidone HCl 60 mg Capsule 60 mg PO 0700,1700 30 Days Qty: 60 1RF Coding Level of Care Code ED Wafer Substrate Tester for Adelia Cat
[2021-11-24 20:53] LABS: Basophils # 0.1 10^3/uL (0.0-0.1); Basophils % 0.7 %; Eosinophils # 0.2 10^3/uL (0.0-0.8); Hematocrit 42.8 % (37.0-47.0); Hemoglobin 14.3 g/dL (11.5-15.3); Lymphocytes # 4.6 10^3/uL (0.8-4.8); Lymphocytes % 51.8 %; Mean Corpuscular HGB Conc 33.4 g/dL (30.0-36.0); Mean Corpuscular Hemoglobin 30.5 pg (28.0-34.0); Mean Corpuscular Volume 91.3 fl (81-99); Mean Platelet Volume 10.5 fL (7.4-10.4); Monocytes # 0.5 10^3/uL (0.2-0.9); Neutrophils # 3.46 10^3/uL (1.8-7.7); Neutrophils % 39.3 %; Nucleated Red Blood Cells % 0 %; Platelet Count 280 10^3/cmm (130-400); Red Blood Count 4.69 10^6/uL (4.1-5.3); Red Cell Distribution Width 13.6 % (12.1-15.1); White Blood Count 8.8 10^3/uL (4.0-10.0)
[2021-11-24 21:01] LABS: HCG Qualitative Urine. Negative (Negative)
[2021-11-24 21:19] LABS: Amphetamines Screen Urine Positive (Negative); Barbiturates Screen Urine Negative (Negative); Benzodiazepines Screen Urine Negative (Negative); Cocaine Screen Urine Negative (Negative); Opiate Screen Urine Negative (Negative); PCP Screen Urine Negative (Negative); THC Screen Urine Positive (Negative)
[2021-11-24 21:29] LABS: Add Urine Microscopic? YES; Bilirubin Urine Neg (Negative); Blood Urine 3+ (Negative); Glucose Urine UA Norm (Normal); Ketones Urine Negative (Negative); Leukocyte Esterase Urine Negative (Negative); Nitrate Urine Negative (Negative); Protein Urine Neg (Negative); Urine Appearance Clear (CLEAR); Urine Color Yellow (Yellow); Urobilinogen Urine 1 mg/dL (Negative); WBC Urine 0-4 /hpf (0-5); pH Urine 5 (5-7)
[2021-11-24 21:30] LABS: Add Urine Culture? No; Bacteria Urine TRACE /hpf; Calcium Oxalate Crystals Urine 25-40 /hpf; Mucus Urine 2+ /hpf; Squamous Epithelial Cell Urine 0-4 /hpf (0-5)
[2021-11-24 21:32] LABS: Alanine Aminotransferase 11 U/L (0-33); Albumin Level 4.5 g/dL (3.5-5.2); Alkaline Phosphatase 76 IU/L (35-105); Anion Gap 12.5 (5-19); Aspartate Amino Transferase 11 U/L (0-32); Blood Urea Nitrogen 11 mg/dL (6-20); Calcium 9.7 mg/dL (8.5-10.5); Carbon Dioxide 25 mmol/L (22-29); Chloride 98 mmol/L (98-107); Globulin 2.3 g/dL (1.3-4.6); Glomerular Filtration Rate 96.4 mL/min (90-130); Glucose 105 mg/dL (65-115); Osmolality Calculated 274 mOsm/kg (285-295); Potassium 3.5 mmol/L (3.5-5.1); Sodium 132 mmol/L (136-145); Thyroid Stimulating Hormone 1.51 uIU/mL (0.27-4.20); Total Bilirubin 0.2 mg/dL (0.15-1.2); Total Protein 6.8 g/dL (6.6-8.7)
[2021-11-24 21:33] LABS: Acetaminophen < 5.0 ug/mL (10-30); Alcohol Level < 10 mg/dL (0-10); Salicylate < 0.3 mg/dL (3-10)
[2021-11-24 23:52] VITALS: BP 109/49; PULSE 62; RESP 16; O2SAT 97
[2021-11-25 00:11] VITALS: BP 110/63; PULSE 74; RESP 17; TEMP 36.6; O2SAT 94
[2021-11-25 00:25] VITALS: BMI 33.0
[2021-11-25 06:00] VITALS: BP 126/80; PULSE 75; RESP 18; TEMP 36.4; O2SAT 99
[2021-11-25] MEDS: ziprasidone hcl 60 mg Capsule PO ×2 (06:41→17:15)
[2021-11-25] MEDS: duloxetine 60 mg Capsule PO ×2 (09:14→17:15)
[2021-11-25] MEDS: ibuprofen 800 mg tablet PO (09:14)
[2021-11-25] MEDS: tizanidine 4 mg Tablet PO (09:14)
[2021-11-25] MEDS: propranolol 20 mg Tablet PO ×2 (09:14→17:15)
[2021-11-25] MEDS: lamoTRIgine 100 mg Tablet 150 MG PO ×2 (09:15→17:15)
[2021-11-25] MEDS: nicotine 21 mg Patch 1 PATCH TRANSDERMA (09:18)
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
[2021-11-25 14:00] VITALS: BP 110/73; PULSE 61; RESP 15; TEMP 36.8; O2SAT 96
[2021-11-25] MEDS: OLANZapine 5 mg ODT PO (16:14)
--- NOTE | 2021-11-25 16:15 | PC.NURSE ---
Patient c/o anxiety. Anxious affect observed. Zydis 5 mg sl given.
[2021-11-25 20:47] VITALS: BP 128/73; PULSE 58; RESP 15; TEMP 36.7; O2SAT 98
[2021-11-26 06:00] VITALS: BP 133/83; PULSE 64; RESP 19; TEMP 36.7; O2SAT 96
[2021-11-26] MEDS: ziprasidone hcl 60 mg Capsule PO ×2 (06:13→16:47)
[2021-11-26] MEDS: propranolol 20 mg Tablet PO ×2 (08:37→19:50)
[2021-11-26] MEDS: lamoTRIgine 100 mg Tablet 150 MG PO ×2 (08:37→19:50)
[2021-11-26] MEDS: duloxetine 60 mg Capsule PO ×2 (08:37→19:52)
[2021-11-26] MEDS: nicotine 21 mg Patch 1 PATCH TRANSDERMA (11:23)
[2021-11-26 14:00] VITALS: BP 121/77; PULSE 64; RESP 18; TEMP 36.7; O2SAT 96
--- NOTE | 2021-11-26 16:38 | W.PM.NPUPNS ---
Subjective NPU Subjective: Patient presents today reporting that she is doing okay. She reports that she was really sleeping for all but to 3 hours in a day sometimes. She reports that she has been mostly compliant with medication but denies it being extremely efficacious. We discussed the possibility of increasing her [place] but she reports that she might open to trial of lithium. We discussed the risk benefits and alternatives as well as how we approach introducing the lithium and she understood and agreed to consider this option. Mental Status Exam MSE Comments: This is an obese, white female, in hospital scrubswith limited grooming and eye contact. No abnormal movements, except for psychomotor retardation. Cooperative with exam in mild distress. Speech was decreased rate and volume. Mood described as depressed; affect subdued. Thought process, organized. Thought content: patient denied suicidal or homicidal ideation, there were no delusions reported or noted, patient denied auditory or visual hallucinations. Attention, concentration, and memory appeared intact but none were formally tested. Alert and oriented times three. Insight and judgment are limited. Impulse control is limited. Vitals/I&O/Wt Last Vital Signs Temp 98.1 F 11/26/21 14:00 Pulse 64 11/26/21 14:00 Resp 18 11/26/21 14:00 BP 121/77 11/26/21 14:00 Pulse Ox 96 11/26/21 14:00 Weight last 48 hrs Weight 79.379 kg Weight 79.379 kg Weight 79.379 kg Data NPU : 11/24/21 20:47 11/24/21 20:47 A&P Assessment and plan (1) Major depressive disorder, recurrent: Status: Acute (2) Borderline personality disorder: Status: Chronic (3) Methamphetamine abuse: Status: Chronic (4) PCOS (polycystic ovarian syndrome): Status: Acute (5) Impulse control disorder: Status: Chronic (6) Cluster B personality disorder: Status: Acute Plan This is a 31-year-old female who has had several hospitalizations and reports limited effectiveness of medications currently restarted on home medication but considering a change to lithium. 1. Continue current medication. We will discuss the possibility of lithium again in the morning. 2. Continue every 15 minute checks for safety. 3. Encourage individual, group and milieu therapies. 4. Encourage sober living treatment after discharge at the highest level of care to which he is willing to commit. Involuntary Hold Information 96 Hour Hold: 96 Hour Involuntary Admission: No Attestations NPU Medical Necessity Statement*: Inpatient hospitalization is medically necessary and the clinically appropriate intervention at this time. We will monitor medications and make changes as indicated. Likely length of stay is three to five days Coding Level of Care Code Acute [employer] Wafer Breaker for g Fwd Diagnoses Major depressive disorder, recurrent F33.9 Borderline personality disorder F60.3 Methamphetamine abuse F15.10 PCOS (polycystic ovarian syndrome) E28.2 Impulse control disorder F63.9 Cluster B personality disorder F60.89
[2021-11-26 20:23] VITALS: BP 120/79; PULSE 69; RESP 15; O2SAT 98
[2021-11-27 06:00] VITALS: BP 134/93; PULSE 74; RESP 16; TEMP 36.4; O2SAT 96
[2021-11-27] MEDS: ziprasidone hcl 60 mg Capsule PO ×2 (06:33→16:38)
[2021-11-27] MEDS: lamoTRIgine 100 mg Tablet 150 MG PO (09:00)
[2021-11-27] MEDS: propranolol 20 mg Tablet PO ×2 (09:01→20:39)
[2021-11-27] MEDS: duloxetine 60 mg Capsule PO ×2 (09:01→20:38)
[2021-11-27] MEDS: nicotine 21 mg Patch 1 PATCH TRANSDERMA (09:30)
[2021-11-27] MEDS: ibuprofen 800 mg tablet PO (09:45)
[2021-11-27] MEDS: benzocaine 20% 7 gm 1 APPLIC MUCOUS MEM (11:23)
[2021-11-27] MEDS: lithium carbonate 300 mg Capsule PO ×2 (13:38→20:38)
[2021-11-27 14:00] VITALS: BP 124/75; PULSE 78; RESP 20; TEMP 36.8; O2SAT 98
--- NOTE | 2021-11-27 16:52 | W.PM.NPUPNS ---
Subjective NPU Subjective: Patient present today continuing to report that she feels her medications have not been great. She agreed to a reduction in her Lamictal and initiation of lithium after discussion of the risks, benefits and alternatives she understood and agreed to lithium 300 mg p.o. twice daily and using her twice daily in a likely cross titration. She reports continued to isolate and likely sleeping too much. Mental Status Exam MSE Comments: This is an obese, white female, in hospital scrubswith limited grooming and eye contact. No abnormal movements, except for psychomotor retardation. Cooperative with exam in mild distress. Speech was decreased rate and volume. Mood described as still the same; affect subdued. Thought process, organized. Thought content: patient denied suicidal or homicidal ideation, there were no delusions reported or noted, patient denied auditory or visual hallucinations. Attention, concentration, and memory appeared intact but none were formally tested. Alert and oriented times three. Insight and judgment are limited. Impulse control is limited. Vitals/I&O/Wt Last Vital Signs Temp 97.4 F L 11/27/21 20:25 Pulse 67 11/27/21 20:25 Resp 16 11/27/21 20:25 BP 121/81 11/27/21 20:25 Pulse Ox 96 11/27/21 20:25 O2 Del Method 11/25/21 00:20 Data NPU : 11/24/21 20:47 11/24/21 20:47 A&P Assessment and plan (1) Major depressive disorder, recurrent: Status: Acute (2) Borderline personality disorder: Status: Chronic (3) Methamphetamine abuse: Status: Chronic (4) PCOS (polycystic ovarian syndrome): Status: Acute (5) Impulse control disorder: Status: Chronic (6) Cluster B personality disorder: Status: Acute Plan This is a 31-year-old female who has had several hospitalizations and reports limited effectiveness of medications currently restarted on home medication but considering a change to lithium. 1. Continue current medication. Decrease the Lamictal to 100 mg p.o. twice daily and start lithium 300 mg p.o. twice daily. 2. Continue every 15 minute checks for safety. 3. Encourage individual, group and milieu therapies. 4. Encourage sober living treatment after discharge at the highest level of care to which he is willing to commit. Involuntary Hold Information 96 Hour Hold: 96 Hour Involuntary Admission: No Attestations NPU Medical Necessity Statement*: Inpatient hospitalization is medically necessary and the clinically appropriate intervention at this time. We will monitor medications and make changes as indicated. Likely length of stay is 2-4 days Coding Level of Care Code Acute Post Anesthesia Nurse for g Fwd Diagnoses Major depressive disorder, recurrent F33.9 Borderline personality disorder F60.3 Methamphetamine abuse F15.10 PCOS (polycystic ovarian syndrome) E28.2 Impulse control disorder F63.9 Cluster B personality disorder F60.89
[2021-11-27 20:25] VITALS: BP 121/81; PULSE 67; RESP 16; TEMP 36.3; O2SAT 96
[2021-11-27] MEDS: lamoTRIgine 100 mg Tablet PO (20:38)
[2021-11-28 06:00] VITALS: BP 132/86; PULSE 72; RESP 17; TEMP 36.7; O2SAT 98
[2021-11-28] MEDS: ziprasidone hcl 60 mg Capsule PO ×2 (06:45→17:05)
[2021-11-28] MEDS: ibuprofen 600 mg Tablet PO (08:08)
[2021-11-28] MEDS: duloxetine 60 mg Capsule PO ×2 (08:09→20:46)
[2021-11-28] MEDS: propranolol 20 mg Tablet PO ×2 (08:09→20:45)
[2021-11-28] MEDS: lamoTRIgine 100 mg Tablet PO ×2 (08:09→20:44)
[2021-11-28] MEDS: nicotine 21 mg Patch 1 PATCH TRANSDERMA (08:23)
[2021-11-28] MEDS: lithium carbonate 300 mg Capsule PO ×2 (09:31→20:45)
[2021-11-28] MEDS: acetaminophen 325 mg Tablet 650 MG PO (10:30)
[2021-11-28 14:00] VITALS: BP 142/76; PULSE 63; RESP 18; TEMP 36.8; O2SAT 97
--- NOTE | 2021-11-28 16:04 | P.NPUPN_ITS ---
Subjective NPU Subjective: Patient presents today reporting that she is doing better with the medication changes. Denies any ill effects from the decrease of the Lamictal or initiation of lithium. We discussed discharge planning and both agree that we were not in a bolden and plan to take it day by day based on her presentation. Talked about her home environment and her work with social work team to make sure she had appropriate supports at discharge. She reports eating and sleeping okay. Still isolative. Mental Status Exam MSE Comments: This is an obese, white female, in hospital scrubswith limited grooming and eye contact. No abnormal movements, except for psychomotor retardation. Cooperative with exam in mild distress. Speech was decreased rate and volume. Mood described as a little better; affect subdued. Thought process, organized. Thought content: patient denied suicidal or homicidal ideation, there were no delusions reported or noted, patient denied auditory or visual hallucinations. Attention, concentration, and memory appeared intact but none were formally tested. Alert and oriented times three. Insight and judgment are limited, but improving. Impulse control is limited. Vitals/I&O/Wt Last Vital Signs Temp 98.0 F 11/28/21 06:00 Pulse 72 11/28/21 06:00 Resp 17 11/28/21 06:00 BP 132/86 11/28/21 06:00 Pulse Ox 98 11/28/21 06:00 O2 Del Method 11/25/21 00:20 Data NPU : 11/24/21 20:47 11/24/21 20:47 A&P Assessment and plan (1) Major depressive disorder, recurrent: Status: Acute (2) Borderline personality disorder: Status: Chronic (3) Methamphetamine abuse: Status: Chronic (4) PCOS (polycystic ovarian syndrome): Status: Acute (5) Impulse control disorder: Status: Chronic (6) Cluster B personality disorder: Status: Acute Plan This is a 31-year-old female who has had several hospitalizations and reports limited effectiveness of medications currently restarted on home medication but considering a change to lithium. 1. Continue current medication. Decrease the Lamictal to 100 mg p.o. twice daily and start lithium 300 mg p.o. twice daily. 2. Continue every 15 minute checks for safety. 3. Encourage individual, group and milieu therapies. 4. Encourage sober living treatment after discharge at the highest level of care to which he is willing to commit. Involuntary Hold Information 96 Hour Hold: 96 Hour Involuntary Admission: No Attestations NPU Medical Necessity Statement*: Inpatient hospitalization is medically necessary and the clinically appropriate intervention at this time. We will monitor medications and make changes as indicated. Likely length of stay is 2-4 days Coding Level of Care Code Acute Office Services Manager for [facility] Fwd Diagnoses Major depressive disorder, recurrent F33.9 Borderline personality disorder F60.3 Methamphetamine abuse F15.10 PCOS (polycystic ovarian syndrome) E28.2 Impulse control disorder F63.9 Cluster B personality disorder F60.89
[2021-11-28 19:36] VITALS: BP 124/68; PULSE 76; RESP 17; TEMP 36.7; O2SAT 96
[2021-11-28] MEDS: trazodone 50 mg Tablet PO (20:46)
--- NOTE | 2021-11-28 21:44 | NUR.SHIFT ---
PT ASSESSMENT AT BEDSIDE. PT CALM AND COOPERATIVE ALTHOUGH ISOLATIVE. LOW ENERGY. PT DENIES SI/HI/AVH AT THIS TIME. REPORTS BM TODAY. REPORTS GOOD APPETITE AND EXCESSIVE SLEEPINESS. DENIES ANY PAIN. POOR EYE CONTACT. SPEECH IS MINIMAL AND SUBDUED. Q15 MIN SAFETY CHECKS CONTINUED IN [place]IE[place]
[2021-11-29 05:54] VITALS: BP 124/68; PULSE 76; RESP 17; TEMP 36.7; O2SAT 96
--- NOTE | 2021-11-29 06:27 | PC.NURSE ---
Trazadone 50 mg po given last night with a good effect.
[2021-11-29 06:46] VITALS: BP 137/86; PULSE 69; RESP 18; TEMP 36.5; O2SAT 99
[2021-11-29] MEDS: ziprasidone hcl 60 mg Capsule PO ×2 (06:48→16:32)
[2021-11-29] MEDS: lithium carbonate 300 mg Capsule PO ×2 (08:09→21:09)
[2021-11-29] MEDS: duloxetine 60 mg Capsule PO ×2 (08:09→21:09)
[2021-11-29] MEDS: propranolol 20 mg Tablet PO ×2 (08:09→21:09)
[2021-11-29] MEDS: lamoTRIgine 100 mg Tablet PO ×2 (08:09→21:09)
[2021-11-29] MEDS: tizanidine 4 mg Tablet PO ×2 (08:11→16:33)
--- NOTE | 2021-11-29 08:12 | PC.NURSE ---
PRN ZANAFLEX 4 MG GIVEN PO PER PT C/O SPASMS
[2021-11-29] MEDS: acetaminophen 325 mg Tablet 650 MG PO (09:45)
[2021-11-29 14:00] VITALS: BP 92/56; PULSE 66; RESP 16; TEMP 36.8; O2SAT 95
--- NOTE | 2021-11-29 16:33 | PC.NURSE ---
PRN ZANAFLEX 4 MG GIVEN PO PER PT C/O STATED MUSCLE SPASMS
--- NOTE | 2021-11-29 19:11 | P.NPUPN_ITS ---
Subjective NPU Subjective: Patient presents today reporting that he has felt a clear improvement from the change in the medication. She reports feeling optimistic about how things may be moving forward and we discussed the likelihood of discharge in the next 48 hours. She reports that she is eating sleeping better and is not felt as good for some time. Mental Status Exam MSE Comments: This is an obese, white female, in hospital scrubswith limited grooming and eye contact. No abnormal movements, except for psychomotor r etardation. Cooperative with exam in mild distress. Speech was decreased rate and volume. Mood described as much better; affect less subdued. Thought process, organized. Thought content: patient denied suicidal or homicidal ideation, there were no delusions reported or noted, patient denied auditory or visual hallucinations. Attention, concentration, and memory appeared intact but none were formally tested. Alert and oriented times three. Insight and judgment are limited, but improving. Impulse control is limited. Vitals/I&O/Wt Last Vital Signs Temp 98.2 F 11/29/21 20:23 Pulse 66 11/29/21 20:23 Resp 20 H 11/29/21 20:23 BP 99/67 11/29/21 20:23 Pulse Ox 97 11/29/21 20:23 O2 Del Method 11/29/21 14:00 Data NPU : 11/24/21 20:47 11/24/21 20:47 A&P Assessment and plan (1) Major depressive disorder, recurrent: Status: Acute (2) Borderline personality disorder: Status: Chronic (3) Methamphetamine abuse: Status: Chronic (4) PCOS (polycystic ovarian syndrome): Status: Acute (5) Impulse control disorder: Status: Chronic (6) Cluster B personality disorder: Status: Acute Plan This is a 31-year-old female who has had several hospitalizations and reports limited effectiveness of medications currently restarted on home medicat ion but considering a change to lithium. 1. Continue current medication. Decreased the Lamictal to 100 mg p.o. twice daily and started lithium 300 mg p.o. twice daily. 2. Continue every 15 minute checks for safety. 3. Encourage individual, group and milieu therapies. 4. Encourage sober living treatment after discharge at the highest level of care to which he is willing to commit. Involuntary Hold Information 96 Hour Hold: 96 Hour Involuntary Admission: No Attestations NPU Medical Necessity Statement*: Inpatient hospitalization is medically necessary and the clinically appropriate intervention at this time. We will monitor medications and make changes as indicated. Likely length of stay is 1-3 days Coding Level of Care Code Acute Social Sciences Professor for g Fwd Diagnoses Major depressive disorder, recurrent F33.9 Borderline personality disorder F60.3 Methamphetamine abuse F15.10 PCOS (polycystic ovarian syndrome) E28.2 Impulse control disorder F63.9 Cluster B personality disorder F60.89
[2021-11-29 20:23] VITALS: BP 99/67; PULSE 66; RESP 20; TEMP 36.8; O2SAT 97
[2021-11-30 06:00] VITALS: BP 120/81; PULSE 58; RESP 20; TEMP 36.8; O2SAT 98
[2021-11-30] MEDS: ziprasidone hcl 60 mg Capsule PO (06:33)
[2021-11-30] MEDS: lithium carbonate 300 mg Capsule PO (09:15)
[2021-11-30] MEDS: duloxetine 60 mg Capsule PO (09:16)
[2021-11-30] MEDS: propranolol 20 mg Tablet PO (09:16)
[2021-11-30] MEDS: lamoTRIgine 100 mg Tablet PO (09:16)
[2021-11-30] MEDS: tizanidine 4 mg Tablet PO (09:18)
[2021-11-30] MEDS: nicotine 21 mg Patch 1 PATCH TRANSDERMA (09:38)
--- NOTE | 2021-11-30 12:01 | DCPLANNER ---
IMM completed on 11/30/21 @ [id number]. Pt was given a copy of rights.
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
[2021-11-30 12:36] VITALS: BP 120/81; PULSE 58; RESP 20; TEMP 36.8; O2SAT 98
[2021-11-30 14:00] VITALS: BP 135/87; PULSE 64; RESP 16; TEMP 36.4; O2SAT 95
== END 2021-11-30 15:00 | disposition home or self-care (01) | DRG 885 ==
LOC: ER 21:15 → NP 21:53
PROVIDERS: Admitting Provider Psychiatry & Neurology Psychiatry; Emergency Provider Emergency Medicine; Visit Provider Psychiatry & Neurology Psychiatry
DX: F33.9 Major depressive disorder, recurrent, unspecified (principal); R45.851 Suicidal ideations; F15.10 Other stimulant abuse, uncomplicated; Z88.2 Allergy status to sulfonamides; F17.210 Nicotine dependence, cigarettes, uncomplicated; F10.11 Alcohol abuse, in remission; F60.3 Borderline personality disorder; F63.9 Impulse disorder, unspecified; F60.89 Other specific personality disorders; Z79.891 Long term (current) use of opiate analgesic; E28.2 Polycystic ovarian syndrome
CPT/HCPCS: 80053; 80306; 80307; 81001; 81025; 84443; 85025; 97150; 97165; 99285

== ENCOUNTER 2022-06-21 23:03 | Inpatient (IN) | payer MEDICARE, MEDICAID, SELFPAY ==
--- NOTE | 2022-06-21 23:14 | W.ED.PSYCHS ---
HPI - Psych General: Chief Complaint: Psychiatric Symptoms Stated Complaint: MHE Time Seen by Provider: 06/21/22 23:07 Source: EMS Mode of arrival: EMS Limitations: no limitations History of Present Illness: 32-year-old female has a history of amphetamine abuse. She had used meth recently police and EMS were called out to her house that she has been combative with family EMS states that she is clearly in influence of meth I did interview as well she is acutely psychotic likely drug-induced she has really no train of thought she is all over the place and very difficult to get a real history from she states that she does not know really what happened tonight but she members getting very angry she denies SI or HI Associated symptoms: Deny depression Review of Systems Const: Denies: fever(s), chills, body aches or change in appetite Eyes: Denies: blurry vision or eye discomfort ENMT: Denies: throat pain or dental pain Card: Denies: chest pain Resp: Denies: dyspnea GI: Denies: abdominal pain, nausea, vomiting or diarrhea : Denies: dysuria Musc: Denies: neck pain or back pain Skin/Breast: Denies: rash Neuro: Denies: headache(s) Psych: Reports: mood swings, irritability and paranoia; Denies: depression Renny/Lymph: Denies: easy bruising All/Imm: Denies: urticaria PFSH ED PFSH: Medical History Abnormal uterine bleeding (AUB) Amenorrhea Complex cyst of right ovary Oligomenorrhea Uterine bleeding Family History Father Colon cancer onset unknown Hyperlipidemia Heart disease Hypertension Family/Other No problems noted. 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 Physical Exam Const: COMMON NORMALS: patient oriented x3 GENERAL APPEARANCE: disheveled HENMT: COMMON NORMALS: normocephalic and atraumatic HEAD & SCALP: normocephalic and atraumatic Eye: COMMON NORMALS: Equal, round and reactive pupils present and EOMs intact bilaterally PUPIL: Yes Equal, round and reactive pupils present Neck/C-Spine: COMMON NORMALS: full ROM and supple Chest: COMMONS NORMALS: normal inspection of the chest and normal palpation of entire chest wall Resp: COMMON NORMALS: normal respiratory effort, No retractions, No use of accessory muscles and clear to auscultation bilaterally AUSCULTATION: clear to auscultation bilaterally Cardio: COMMON NORMALS: regular rate, regular rhythm and No murmurs present (Cardio) RATE: regular rate RHYTHM: regular rhythm GI: COMMON NORMALS: Normal to inspection, nondistended, normoactive bowel sounds present, Soft to palpation, non-tender and no masses PALPATION: Yes Soft to palpation Extremity: COMMON NORMALS: normal to inspection and full ROM Neuro: COMMON NORMALS: patient oriented x3, moves all extremities and no focal motor deficits Psych: COMMON NORMALS: mental status grossly normal and cooperative SPEECH: Yes excessive and Yes rapid THOUGHT PROCESS: disorganized THOUGHT CONTENT: Yes Hallucination(s) present Skin: COMMON NORMALS: no rashes or lesions noted and no wounds GENERAL SKIN EXAM: no rashes or lesions noted Course Vital Signs: Vital signs: Vital Signs Pulse Rate 105 H 06/21/22 23:16 Respiratory Rate 20 H 06/22/22 01:36 Blood Pressure 177/117 06/21/22 23:16 Pulse Oximetry 100 06/21/22 23:16 Oxygen Delivery Me thod 06/21/22 23:16 MDM - Psych Medical Decision Making Patient presents here with acute psychosis likely from meth abuse patient is acutely psychotic he was placed on a 96-hour hold given Haldol and Ativan she is been cooperative here spoke to psychiatrist Dr. Fry and will admit. Lab Data 06/22/22 00:08 06/22/22 00:08 Laboratory Results WBC 10.6 10^3/uL (4.0-10.0) H 06/22/22 00:08 RBC 5.28 10^6/uL (4.1-5.3) 06/22/22 00:08 Hgb 15.9 g/dL (11.5-15.3) H 06/22/22 00:08 Hct 46.4 % (37.0-47.0) 06/22/22 00:08 MCV 87.9 fl (81-99) 06/22/22 00:08 MCH 30.1 pg (28.0-34.0) 06/22/22 00:08 MCHC 34.3 g/dL (30.0-36.0) 06/22/22 00:08 RDW 13.2 % (12.1-15.1) 06/22/22 00:08 Plt Count 284 10^3/cmm (130-400) 06/22/22 00:08 MPV 10.6 fL (7.4-10.4) H 06/22/22 00:08 Neut % (Auto) 59.3 % 06/22/22 00:08 Lymph % (Auto) 32.3 % 06/22/22 00:08 [place] % (Auto) 7.0 % 06/22/22 00:08 Eos % (Auto) 0.6 % 06/22/22 00:08 Baso % (Auto) 0.6 % 06/22/22 00:08 Neut # (Auto) 6.28 10^3/uL (1.8-7.7) 06/22/22 00:08 Lymph # (Auto) 3.4 10^3/uL (0.8-4.8) 06/22/22 00:08 [place] # (Auto) 0.7 10^3/uL (0.2-0.9) 06/22/22 00:08 Eos # (Auto) 0.1 10^3/uL (0.0-0.8) 06/22/22 00:08 Baso # (Auto) 0.1 10^3/uL (0.0-0.1) 06/22/22 00:08 Nucleated RBC % (auto) 0 % 06/22/22 00:08 Nucleated RBCs # 0.0 /100WBC 06/22/22 00:08 Sodium 135 mmol/L (136-145) L 06/22/22 00:08 Potassium 2.7 mmol/L (3.5-5.1) L* 06/22/22 00:08 Chloride 98 mmol/L (98-107) 06/22/22 00:08 Carbon Dioxide 24 mmol/L (22-29) 06/22/22 00:08 Anion Gap 15.7 (5-19) 06/22/22 00:08 BUN 11 mg/dL (6-20) 06/22/22 00:08 Creatinine 0.6 mg/dL (0.5-0.9) 06/22/22 00:08 GFR Calculation 114.4 mL/min (90-130) 06/22/22 00:08 Glucose 115 mg/dL (65-115) 06/22/22 00:08 Calculated Osmolality 280 mOsm/kg (285-295) L 06/22/22 00:08 Calcium 9.9 mg/dL (8.5-10.5) 06/22/22 00:08 Total Bilirubin 0.9 mg/dL (0.15-1.2) 06/22/22 00:08 AST 22 U/L (0-32) 06/22/22 00:08 ALT 13 U/L (0-33) 06/22/22 00:08 Alkaline Phosphatase 90 U/L (35-105) 06/22/22 00:08 Total Protein 7.0 g/dL (6.6-8.7) 06/22/22 00:08 Albumin 4.7 g/dL (3.5-5.2) 06/22/22 00:08 Globulin 2.3 g/dL (1.3-4.6) 06/22/22 00:08 Salicylates < 0.3 mg/dL (3-10) L 06/22/22 00:08 Acetaminophen < 5.0 ug/mL (10-30) L 06/22/22 00:08 Ethyl Alcohol < 10 mg/dL (0-10) 06/22/22 00:08 Discharge Plan Discharge Patient Disposition: Admitted As Inpatient Admit Provider: Bismark Fry Clinical Impression: Acute psychosis, Methamphetamine abuse Condition: Stable Coding Level of Care Code ED [facility] Counselor for Adelia Cat
[2022-06-21 23:16] VITALS: BP 177/117; PULSE 105; RESP 18; O2SAT 100; BMI 28.3
[2022-06-21] MEDS: diphenhydrAMINE 50 mg/mL SDV 1mL IM (23:36)
[2022-06-21] MEDS: haloperidol inj 5 mg/mL INJ 1 mL IM (23:36)
[2022-06-22 00:35] LABS: Basophils # 0.1 10^3/uL (0.0-0.1); Basophils % 0.6 %; Eosinophils # 0.1 10^3/uL (0.0-0.8); Eosinophils % 0.6 %; Hematocrit 46.4 % (37.0-47.0); Hemoglobin 15.9 g/dL (11.5-15.3); Lymphocytes # 3.4 10^3/uL (0.8-4.8); Lymphocytes % 32.3 %; Mean Corpuscular HGB Conc 34.3 g/dL (30.0-36.0); Mean Corpuscular Hemoglobin 30.1 pg (28.0-34.0); Mean Corpuscular Volume 87.9 fl (81-99); Mean Platelet Volume 10.6 fL (7.4-10.4); Monocytes # 0.7 10^3/uL (0.2-0.9); Neutrophils # 6.28 10^3/uL (1.8-7.7); Neutrophils % 59.3 %; Nucleated Red Blood Cells % 0 %; Platelet Count 284 10^3/cmm (130-400); Red Blood Count 5.28 10^6/uL (4.1-5.3); Red Cell Distribution Width 13.2 % (12.1-15.1); White Blood Count 10.6 10^3/uL (4.0-10.0)
[2022-06-22 01:13] LABS: Alanine Aminotransferase 13 U/L (0-33); Albumin Level 4.7 g/dL (3.5-5.2); Alkaline Phosphatase 90 U/L (35-105); Anion Gap 15.7 (5-19); Aspartate Amino Transferase 22 U/L (0-32); Blood Urea Nitrogen 11 mg/dL (6-20); Calcium 9.9 mg/dL (8.5-10.5); Carbon Dioxide 24 mmol/L (22-29); Chloride 98 mmol/L (98-107); Creatinine Clr Calc Pharmacy 116.5786; Globulin 2.3 g/dL (1.3-4.6); Glomerular Filtration Rate 114.4 mL/min (90-130); Glucose 115 mg/dL (65-115); Osmolality Calculated 280 mOsm/kg (285-295); Sodium 135 mmol/L (136-145); Total Bilirubin 0.9 mg/dL (0.15-1.2)
[2022-06-22 01:24] LABS: Acetaminophen < 5.0 ug/mL (10-30); Alcohol Level < 10 mg/dL (0-10); Salicylate < 0.3 mg/dL (3-10)
[2022-06-22 01:25] LABS: Potassium 2.7 mmol/L (3.5-5.1)
[2022-06-22 01:36] VITALS: RESP 20
--- NOTE | 2022-06-22 01:42 | PC.NURSE ---
Patient rights- Pt placed on 96hr hold. Rights read to patient at 0110 by Marylou JACKMAN House Sup. Witness by Security JR and myself. Pt verbalized understanding of the 96 hr hold and her rights.
[2022-06-22] MEDS: potassium chloride ER 20 mEq Tablet 60 MEQ PO (01:45)
[2022-06-22 01:46] LABS: HCG Qualitative Urine. Negative (Negative)
[2022-06-22 01:49] VITALS: RESP 16
[2022-06-22 03:24] VITALS: BP 129/87; PULSE 98; RESP 22; TEMP 36.4; O2SAT 100
[2022-06-22 06:00] VITALS: BP 112/77; PULSE 88; RESP 18; TEMP 36.6; O2SAT 100
[2022-06-22 06:04] LABS: Amphetamines Screen Urine Positive (Negative); THC Screen Urine Positive (Negative)
[2022-06-22 06:05] LABS: Barbiturates Screen Urine Negative (Negative); Benzodiazepines Screen Urine Negative (Negative); Cocaine Screen Urine Negative (Negative); Opiate Screen Urine Negative (Negative); PCP Screen Urine Negative (Negative)
[2022-06-22] MEDS: ziprasidone hcl 60 mg Capsule PO ×2 (08:55→18:00)
[2022-06-22] MEDS: duloxetine 60 mg Capsule PO ×2 (08:55→18:00)
[2022-06-22] MEDS: lamoTRIgine 100 mg Tablet PO (08:55)
[2022-06-22] MEDS: propranolol 20 mg Tablet PO ×2 (08:55→18:01)
[2022-06-22 14:00] VITALS: BP 114/77; PULSE 80; RESP 16; TEMP 36.6; O2SAT 100
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
[2022-06-22 21:21] VITALS: BP 105/47; PULSE 70; RESP 16; TEMP 36.2; O2SAT 97
[2022-06-23 06:00] VITALS: BP 114/74; PULSE 62; RESP 16; TEMP 36.8; O2SAT 99
[2022-06-23] MEDS: propranolol 20 mg Tablet PO ×2 (08:46→17:49)
[2022-06-23] MEDS: ziprasidone hcl 60 mg Capsule PO ×2 (08:46→17:49)
[2022-06-23] MEDS: duloxetine 60 mg Capsule PO ×2 (08:46→17:49)
[2022-06-23] MEDS: lamoTRIgine 100 mg Tablet PO ×2 (08:48→21:22)
[2022-06-23] MEDS: nicotine 21 mg Patch 1 PATCH TRANSDERMA (08:53)
[2022-06-23 14:00] VITALS: BP 112/72; PULSE 72; RESP 18; TEMP 36.6; O2SAT 97
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
[2022-06-23 21:42] VITALS: BP 104/71; PULSE 57; RESP 18; TEMP 36.9; O2SAT 97
[2022-06-24 06:00] VITALS: BP 119/82; PULSE 61; RESP 16; TEMP 36.6; O2SAT 97
[2022-06-24] MEDS: lamoTRIgine 100 mg Tablet PO ×2 (08:18→20:57)
[2022-06-24] MEDS: propranolol 20 mg Tablet PO ×2 (08:18→17:25)
[2022-06-24] MEDS: duloxetine 60 mg Capsule PO ×2 (08:19→17:25)
[2022-06-24] MEDS: ziprasidone hcl 60 mg Capsule PO ×2 (08:19→17:25)
[2022-06-24 14:00] VITALS: BP 105/69; PULSE 73; RESP 16; TEMP 37.2; O2SAT 96
--- NOTE | 2022-06-24 17:28 | P.NPUPN_ITS ---
Subjective NPU Subjective: Is a 32-year-old white female with borderline personality disorder major depressive disorder and a history of methamphetamine induced psychosis admitted with psychotic symptoms and disorganized behavior. The patient had minimized having any voices at this time. She had reported that she had been receiving follow-up in [place] at [facility] and states that she had been somewhat compliant with her medicines for depression. She had acknowledged depressed mood but minimized any suicidal thoughts. She had reported that she continued to use methamphetamine despite adverse consequences. She had not endorsed any recent history of increased frequency or thoughts of self injury. Mental Status Exam MSE Comments: This is an obese, white female, in hospital scrubs with poor grooming and limited eye contact. She was awake and alert on the unit. There was no evidence of any abnormal involuntary motor movements appreciated. Speech was normal in regards to rate rhythm and prosody today. She described her mood as all right. Her affect again appeared flat.;Thought process: Her thought process was linear and logical. Thought content: patient denied suicidal or homicidal ideation, she did not appear to be responding to internal stimuli. She still appeared guarded on interview. Her recent and remote memory appeared grossly intact. Vitals/I&O/Wt Last Vital Signs Temp 98.9 F 06/24/22 14:00 Pulse 73 06/24/22 14:00 Resp 16 06/24/22 14:00 BP 105/69 06/24/22 14:00 Pulse Ox 96 06/24/22 14:00 O2 Del Method 06/24/22 14:00 Weight last 48 hrs Weight 63.276 kg Data NPU 06/22/22 00:08 06/22/22 00:08 A&P Assessment and plan (1) Acute psychosis: (2) Methamphetamine abuse: (3) Borderline personality disorder: (4) Major depressive disorder, recurrent: Plan 32-year-old white female with a history of psychotic symptoms along with a history of borderline personality disorder and methamphetamine use admitted with psychotic symptoms likely in the context of use of methamphetamine. #1. Therapeutic observation 15-minute checks on the unit. #2. Patient remains on Cymbalta 120 mg daily, Lamictal 100 mg twice a day, and Geodon 60 mg twice a day as prescribed. #3. Encourage individual group and milieu therapy. #4. Encourage sobriety at the highest level of ability possible, she may need signficant substance abuse treatment when stabilized here. #5. Will attempt to gather collateral information. Involuntary Hold Information 96 Hour Hold: 96 Hour Involuntary Admission: No 96 Hour Hold Ending Date: 06/28/22 96 Hour Hold Ending Time: 23:15 Attestations N[facility] Medical Necessity Statement*: Patient will be hospitalized neuropsychiatric unit with the patient's likely length of stay expected to be 5 to 7 days. Coding Level of Care Code Acute Code for [facility] Fwd Diagnoses Acute psychosis F23 Methamphetamine abuse F15.10 Borderline personality disorder F60.3 Major depressive disorder, recurrent F33.9
[2022-06-24 20:11] VITALS: BP 91/50; PULSE 75; RESP 16; TEMP 36.9; O2SAT 96
[2022-06-24] MEDS: tizanidine 4 mg Tablet PO (20:57)
--- NOTE | 2022-06-24 21:00 | PC.NURSE ---
PT STATED I NEED SOMETHING FOR MY MUSCLE SPASMS. PT WAS GIVEN TIZANIDINE ORDERED.
[2022-06-25 06:00] VITALS: BP 111/75; PULSE 71; RESP 16; TEMP 36.6; O2SAT 99
[2022-06-25] MEDS: ziprasidone hcl 60 mg Capsule PO ×2 (08:05→16:46)
[2022-06-25] MEDS: duloxetine 60 mg Capsule PO ×2 (08:05→22:33)
[2022-06-25] MEDS: lamoTRIgine 100 mg Tablet PO ×2 (08:05→20:19)
[2022-06-25] MEDS: propranolol 20 mg Tablet PO ×2 (08:05→22:32)
[2022-06-25 14:00] VITALS: BP 93/52; PULSE 69; RESP 18; TEMP 36.6; O2SAT 99
--- NOTE | 2022-06-25 15:13 | P.NPUPN_ITS ---
Subjective NPU Subjective: Is a 32-year-old white female with borderline personality disorder major depressive disorder and a history of methamphetamine induced psychosis admitted with psychotic symptoms and disorganized behavior. The patient denied any thoughts of hurting herself or others. She states that she was feeling better and stated that she had been receiving follow-up at [facility] under Dr. Kam in [place] but stated that she had not visited her psychiatrist in several months. She had continue to report struggles with managing her methamphetamine addiction. She had reported that the voices had been quieter over the past 2 days. She had reported improved sleep. She reported having no thoughts of hurting herself at this time. Mental Status Exam MSE Comments: This is an obese, white female, in hospital scrubs with improved grooming and improved eye contact. She was awake and alert on the unit. There was no evidence of any abnormal involuntary motor movements appreciated. Speech was normal in regards to rate rhythm and prosody today. She described her mood as better. Her affect again remained flat. ;Thought process: Her thought process was linear and logical. Thought content: patient denied suicidal or homicidal ideation, she did not appear to be responding to internal stimuli. No overt paranoia noted. Her recent and remote memory appeared grossly intact. Vitals/I&O/Wt Last Vital Signs Temp 98 F 06/25/22 14:00 Pulse 69 06/25/22 14:00 Resp 18 06/25/22 14:00 BP 93/52 06/25/22 14:00 Pulse Ox 99 06/25/22 14:00 O2 Del Method 06/25/22 14:00 Data NPU 06/22/22 00:08 06/22/22 00:08 A&P Assessment and plan (1) Acute psychosis: (2) Methamphetamine abuse: (3) Borderline personality disorder: (4) Major depressive disorder, recurrent: Plan 32-year-old white female with a history of psychotic symptoms along with a history of borderline personality disorder and methamphetamine use admitted with psychotic symptoms likely in the context of use of methamphetamine. #1. Therapeutic observation 15-minute checks on the unit. #2. Patient remains on Cymbalta 120 mg daily, Lamictal 100 mg twice a day, and Geodon 60 mg twice a day as prescribed. #3. Encourage individual group and milieu therapy. #4. Encourage sobriety at the highest level of ability possible, she may need signficant substance abuse treatment when stabilized here. #5. Patient appears improved, likely discharge tommorow. Involuntary Hold Information 96 Hour Hold: 96 Hour Involuntary Admission: No 96 Hour Hold Ending Date: 06/28/22 96 Hour Hold Ending Time: 23:15 Attestations NPU Medical Necessity Statement*: Patient will be hospitalized neuropsychiatric unit with the patient's likely length of stay expected to be 1-2 days. Coding Level of Care Code Acute Code for [facility] Fwd Diagnoses Acute psychosis F23 Methamphetamine abuse F15.10 Borderline personality disorder F60.3 Major depressive disorder, recurrent F33.9
[2022-06-25] MEDS: acetaminophen 325 mg Tablet 650 MG PO (16:46)
[2022-06-25 21:04] VITALS: BP 101/73; PULSE 63; RESP 16; TEMP 36.9; O2SAT 97
[2022-06-26 06:00] VITALS: BP 129/84; PULSE 66; RESP 16; TEMP 36.7; O2SAT 98
[2022-06-26] MEDS: tizanidine 4 mg Tablet PO (07:57)
[2022-06-26 08:15] VITALS: BP 116/66; PULSE 70
[2022-06-26] MEDS: ziprasidone hcl 60 mg Capsule PO (08:19)
[2022-06-26] MEDS: propranolol 20 mg Tablet PO (08:19)
[2022-06-26] MEDS: duloxetine 60 mg Capsule PO (08:19)
[2022-06-26] MEDS: lamoTRIgine 100 mg Tablet PO (08:19)
--- NOTE | 2022-06-26 10:55 | DCPLANNER ---
IMM completed 06/26/22 @ 0401. A copy of rights ws given to pt and she stated she understood her rights.
[2022-06-26] MEDS: nicotine 21 mg Patch 1 PATCH TRANSDERMA (11:24)
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
[2022-06-26 12:16] VITALS: BP 116/66; PULSE 70
[2022-06-26] MEDS: acetaminophen 325 mg Tablet 650 MG PO (16:47)
== END 2022-06-26 17:02 | disposition home or self-care (01) | DRG 897 ==
LOC: ER 06-22 00:50 → NP 06-22 01:13
PROVIDERS: Admitting Provider Psychiatry & Neurology Psychiatry; Emergency Provider Emergency Medicine; Visit Provider Psychiatry & Neurology Psychiatry
DX: F15.151 Other stimulant abuse with stimulant-induced psychotic disorder with hallucinations (principal); F33.9 Major depressive disorder, recurrent, unspecified; F60.3 Borderline personality disorder; F15.129 Other stimulant abuse with intoxication, unspecified; R56.9 Unspecified convulsions; F17.210 Nicotine dependence, cigarettes, uncomplicated; Z62.811 Personal history of psychological abuse in childhood
CPT/HCPCS: 80053; 80306; 80307; 81025; 85025; 96372; 97150; 97165; 99238; 99285; J1200; J1630

== ENCOUNTER 2022-07-22 12:56 | Inpatient (IN) | payer MEDICARE, MEDICAID, SELFPAY ==
--- NOTE | 2022-07-22 13:05 | ED.C_ITS ---
Documented by User: SONIA Saunders 07/22/22 14:42 HPI - Psych General: Chief Complaint: Psychiatric Symptoms Stated Complaint: PSYCH/ BEHAVIORAL ISSUES Time Seen by Provider: 07/22/22 12:56 Source: patient and EMS Mode of arrival: EMS Limitations: altered mental status History of Present Illness: Patient is a 32-year-old female presents to ED today via EMS for evaluation of altered mental status. According to EMS police got called to patient's residence (she lives with her mother) for complaints of a verbal altercation and altered mental status of patient. Upon arrival to the ED patient appears acutely psychotic. 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 Patient is not able to provide any meaningful history of why she is here. Her thought process and speech is completely disorganized and illogical. Her answers to questioning are completely irrelevant (i.e I asked why do you feel like police brought you here? and she responds I don't know-it may be because my foot is queer and I am an asylum . Patient's insight, judgment, and cognition are all significantly impaired. MD complaint: altered mental status Duration: intermittent History of same: Yes Context: other (history of drug abuse) Associated symptoms: Reports other (psychosis ) Review of Systems General: Reports: ROS unobtainable due to medical condition and ROS un obtainable due to mental status [facility] ED PFSH: Medical History Abnormal uterine bleeding (AUB) Amenorrhea Complex cyst of right ovary Oligomenorrhea Uterine bleeding Family History Father Colon cancer onset unknown Hyperlipidemia Heart disease Hypertension Family/Other No problems noted. 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 Physical Exam Const: EXAM LIMITATIONS: altered mental status GENERAL APPEARANCE: cooperative and disheveled ORIENTATION/CONSCIOUSNESS: Yes awake OTHER: pt is acutely psychotic Resp: COMMON NORMALS: normal respiratory effort and clear to auscultation bilaterally AUSCULTATION: clear to auscultation bilaterally Cardio: COMMON NORMALS: regular rate and regular rhythm RATE: regular rate RHYTHM: regular rhythm Psych: APPEARANCE: Yes disheveled ATTITUDE: Yes bizarre ACTIVITY/MOTOR BEHAVIOR: Yes appropriate eye contact THOUGHT PROCESS: incoherent, disorganized and Illogical thought process present MEMORY/COGNITION: Yes cognition grossly impaired INSIGHT: Poor insight present (Psych) JUDGEMENT: Poor judgement present (Psych) Course Consultations: Consultation #1: Dr. Reis-accepts to [facility] Vital Signs: Vital signs: Vital Signs Temperature 97.7 F 07/25/22 21:46 Pulse Rate 89 07/26/22 12:18 Respiratory Rate 15 07/26/22 12:18 Blood Pressure 103/75 07/26/22 12:18 Pulse Oximetry 98 07/26/22 12:18 Oxygen Delivery Me thod 07/26/22 06:00 MDM - Psych Medical Decision Making Patient will be admitted to [facility] on a 96-hour hold for acute psychosis. Lab Data 07/22/22 13:30 07/22/22 13:30 Laboratory Results WBC 7.6 10^3/uL (4.0-10.0) 07/22/22 13:30 RBC 5.46 10^6/uL (4.1-5.3) H 07/22/22 13:30 Hgb 16.6 g/dL (11.5-15.3) H 07/22/22 13:30 Hct 49.6 % (37.0-47.0) H 07/22/22 13:30 MCV 90.8 fl (81-99) 07/22/22 13:30 MCH 30.4 pg (28.0-34.0) 07/22/22 13:30 MCHC 33.5 g/dL (30.0-36.0) 07/22/22 13:30 RDW 14.0 % (12.1-15.1) 07/22/22 13:30 Plt Count 292 10^3/cmm (130-400) 07/22/22 13:30 MPV 10.5 fL (7.4-10.4) H 07/22/22 13:30 Neut % (Auto) 54.1 % 07/22/22 13:30 Lymph % (Auto) 36.6 % 07/22/22 13:30 Powell % (Auto) 7.0 % 07/22/22 13:30 Eos % (Auto) 1.2 % 07/22/22 13:30 Baso % (Auto) 0.8 % 07/22/22 13:30 Neut # (Auto) 4.11 10^3/uL (1.8-7.7) 07/22/22 13:30 Lymph # (Auto) 2.8 10^3/uL (0.8-4.8) 07/22/22 13:30 Powell # (Auto) 0.5 10^3/uL (0.2-0.9) 07/22/22 13:30 Eos # (Auto) 0.1 10^3/uL (0.0-0.8) 07/22/22 13:30 Baso # (Auto) 0.1 10^3/uL (0.0-0.1) 07/22/22 13:30 Nucleated RBC % (auto) 0 % 07/22/22 13:30 Nucleated RBCs # 0.0 /100WBC 07/22/22 13:30 Sodium 138 mmol/L (136-145) 07/22/22 13:30 Potassium 3.6 mmol/L (3.5-5.1) 07/22/22 13:30 Chloride 101 mmol/L (98-107) 07/22/22 13:30 Carbon Dioxide 24 mmol/L (22-29) 07/22/22 13:30 Anion Gap 16.6 (5-19) 07/22/22 13:30 BUN 11 mg/dL (6-20) 07/22/22 13:30 Creatinine 0.6 mg/dL (0.5-0.9) 07/22/22 13:30 GFR Calculation 114.4 mL/min (90-130) 07/22/22 13:30 Glucose 98 mg/dL (65-115) 07/22/22 13:30 Calculated Osmolality 285 mOsm/kg (285-295) 07/22/22 13:30 Calcium 10.0 mg/dL (8.5-10.5) 07/22/22 13:30 Total Bilirubin 0.4 mg/dL (0.15-1.2) 07/22/22 13:30 AST 16 U/L (0-32) 07/22/22 13:30 ALT 13 U/L (0-33) 07/22/22 13:30 Alkaline Phosphatase 74 U/L (35-105) 07/22/22 13:30 Total Protein 8.4 g/dL (6.6-8.7) 07/22/22 13:30 Albumin 5.1 g/dL (3.5-5.2) 07/22/22 13:30 Globulin 3.3 g/dL (1.3-4.6) 07/22/22 13:30 HCG, Qual Negative (Negative) 07/22/22 13:30 Salicylates < 0.3 mg/dL (3-10) L 07/22/22 13:30 Urine Opiates Screen Negative ng/mL (Negative) 07/22/22 13:50 Acetaminophen < 5.0 ug/mL (10-30) L 07/22/22 13:30 Ur Barbiturates Screen Negative ng/mL (Negative) 07/22/22 13:50 Lamotrigine 1.9 mcg/mL (2.5-15.0) L 07/22/22 13:30 Ur Phencyclidine Scrn Negative ng/mL (Negative) 07/22/22 13:50 Ur Amphetamines Screen Positive ng/mL (Negative) H 07/22/22 13:50 U Benzodiazepines Scrn Negative ng/mL (Negative) 07/22/22 13:50 Urine Cocaine Screen Negative ng/mL (Negative) 07/22/22 13:50 U Marijuana (THC) Screen Positive ng/mL (Negative) H 07/22/22 13:50 Ethyl Alcohol < 10 mg/dL (0-10) 07/22/22 13:30 Discharge Plan Discharge Patient Disposition: Admitted As Inpatient Admit Provider: Justin Reis Clinical Impression: Acute psychosis Condition: Stable Discharge Diet: Regular Discharge Activity: Resume usual activity Coding Level of Care Code ED Product Control And Logistics Analyst for Chg Fwd Documented by User: Ross Lombardo MD 08/05/22 00:28 HPI - Psych General: Chief Complaint: Psychiatric Symptoms Stated Complaint: PSYCH/ BEHAVIORAL ISSUES Time Seen by Provider: 07/22/22 12:56 [facility] ED PFSH: Medical History Abnormal uterine bleeding (AUB) Amenorrhea Complex cyst of right ovary Oligomenorrhea Uterine bleeding Family History Father Colon cancer onset unknown Hyperlipidemia Heart disease Hypertension Family/Other No problems noted. 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 Course Vital Signs: Vital signs: Vital Signs Temperature 97.7 F 07/25/22 21:46 Pulse Rate 89 07/26/22 12:18 Respiratory Rate 15 07/26/22 12:18 Blood Pressure 103/75 07/26/22 12:18 Pulse Oximetry 98 07/26/22 12:18 Oxygen Delivery Me thod 07/26/22 06:00 MDM - Psych Medical Decision Making Patient will be admitted to [facility] on a 96-hour hold for acute psychosis. I discussed this case with SONIA Saunders. Ross Lombardo MD Emergency Medicine Lab Data 07/22/22 13:30 07/22/22 13:30 Laboratory Results WBC 7.6 10^3/uL (4.0-10.0) 07/22/22 13:30 RBC 5.46 10^6/uL (4.1-5.3) H 07/22/22 13:30 Hgb 16.6 g/dL (11.5-15.3) H 07/22/22 13:30 Hct 49.6 % (37.0-47.0) H 07/22/22 13:30 MCV 90.8 fl (81-99) 07/22/22 13:30 MCH 30.4 pg (28.0-34.0) 07/22/22 13:30 MCHC 33.5 g/dL (30.0-36.0) 07/22/22 13:30 RDW 14.0 % (12.1-15.1) 07/22/22 13:30 Plt Count 292 10^3/cmm (130-400) 07/22/22 13:30 MPV 10.5 fL (7.4-10.4) H 07/22/22 13:30 Neut % (Auto) 54.1 % 07/22/22 13:30 Lymph % (Auto) 36.6 % 07/22/22 13:30 Powell % (Auto) 7.0 % 07/22/22 13:30 Eos % (Auto) 1.2 % 07/22/22 13:30 Baso % (Auto) 0.8 % 07/22/22 13:30 Neut # (Auto) 4.11 10^3/uL (1.8-7.7) 07/22/22 13:30 Lymph # (Auto) 2.8 10^3/uL (0.8-4.8) 07/22/22 13:30 Powell # (Auto) 0.5 10^3/uL (0.2-0.9) 07/22/22 13:30 Eos # (Auto) 0.1 10^3/uL (0.0-0.8) 07/22/22 13:30 Baso # (Auto) 0.1 10^3/uL (0.0-0.1) 07/22/22 13:30 Nucleated RBC % (auto) 0 % 07/22/22 13:30 Nucleated RBCs # 0.0 /100WBC 07/22/22 13:30 Sodium 138 mmol/L (136-145) 07/22/22 13:30 Potassium 3.6 mmol/L (3.5-5.1) 07/22/22 13:30 Chloride 101 mmol/L (98-107) 07/22/22 13:30 Carbon Dioxide 24 mmol/L (22-29) 07/22/22 13:30 Anion Gap 16.6 (5-19) 07/22/22 13:30 BUN 11 mg/dL (6-20) 07/22/22 13:30 Creatinine 0.6 mg/dL (0.5-0.9) 07/22/22 13:30 GFR Calculation 114.4 mL/min (90-130) 07/22/22 13:30 Glucose 98 mg/dL (65-115) 07/22/22 13:30 Calculated Osmolality 285 mOsm/kg (285-295) 07/22/22 13:30 Calcium 10.0 mg/dL (8.5-10.5) 07/22/22 13:30 Total Bilirubin 0.4 mg/dL (0.15-1.2) 07/22/22 13:30 AST 16 U/L (0-32) 07/22/22 13:30 ALT 13 U/L (0-33) 07/22/22 13:30 Alkaline Phosphatase 74 U/L (35-105) 07/22/22 13:30 Total Protein 8.4 g/dL (6.6-8.7) 07/22/22 13:30 Albumin 5.1 g/dL (3.5-5.2) 07/22/22 13:30 Globulin 3.3 g/dL (1.3-4.6) 07/22/22 13:30 HCG, Qual Negative (Negative) 07/22/22 13:30 Salicylates < 0.3 mg/dL (3-10) L 07/22/22 13:30 Urine Opiates Screen Negative ng/mL (Negative) 07/22/22 13:50 Acetaminophen < 5.0 ug/mL (10-30) L 07/22/22 13:30 Ur Barbiturates Screen Negative ng/mL (Negative) 07/22/22 13:50 Lamotrigine 1.9 mcg/mL (2.5-15.0) L 07/22/22 13:30 Ur Phencyclidine Scrn Negative ng/mL (Negative) 07/22/22 13:50 Ur Amphetamines Screen Positive ng/mL (Negative) H 07/22/22 13:50 U Benzodiazepines Scrn Negative ng/mL (Negative) 07/22/22 13:50 Urine Cocaine Screen Negative ng/mL (Negative) 07/22/22 13:50 U Marijuana (THC) Screen Positive ng/mL (Negative) H 07/22/22 13:50 Ethyl Alcohol < 10 mg/dL (0-10) 07/22/22 13:30 Discharge Plan Discharge Patient Disposition: Admitted As Inpatient Admit Provider: Justin Reis Clinical Impression: Acute psychosis Condition: Stable Discharge Diet: Regular Discharge Activity: Resume usual activity Coding Level of Care Code ED Product Control And Logistics Analyst for Adelia Cat
[2022-07-22 13:47] LABS: Basophils # 0.1 10^3/uL (0.0-0.1); Basophils % 0.8 %; Eosinophils # 0.1 10^3/uL (0.0-0.8); Eosinophils % 1.2 %; Hematocrit 49.6 % (37.0-47.0); Hemoglobin 16.6 g/dL (11.5-15.3); Lymphocytes # 2.8 10^3/uL (0.8-4.8); Lymphocytes % 36.6 %; Mean Corpuscular HGB Conc 33.5 g/dL (30.0-36.0); Mean Corpuscular Hemoglobin 30.4 pg (28.0-34.0); Mean Corpuscular Volume 90.8 fl (81-99); Mean Platelet Volume 10.5 fL (7.4-10.4); Monocytes # 0.5 10^3/uL (0.2-0.9); Neutrophils # 4.11 10^3/uL (1.8-7.7); Neutrophils % 54.1 %; Nucleated Red Blood Cells % 0 %; Platelet Count 292 10^3/cmm (130-400); Red Blood Count 5.46 10^6/uL (4.1-5.3); White Blood Count 7.6 10^3/uL (4.0-10.0)
[2022-07-22 13:57] VITALS: BP 168/112; PULSE 109; RESP 20; TEMP 36.8; O2SAT 100
[2022-07-22 14:08] LABS: HCG, Serum Qual Negative (Negative)
[2022-07-22 14:16] LABS: Alanine Aminotransferase 13 U/L (0-33); Albumin Level 5.1 g/dL (3.5-5.2); Alkaline Phosphatase 74 U/L (35-105); Anion Gap 16.6 (5-19); Aspartate Amino Transferase 16 U/L (0-32); Blood Urea Nitrogen 11 mg/dL (6-20); Carbon Dioxide 24 mmol/L (22-29); Chloride 101 mmol/L (98-107); Globulin 3.3 g/dL (1.3-4.6); Glomerular Filtration Rate 114.4 mL/min (90-130); Glucose 98 mg/dL (65-115); Osmolality Calculated 285 mOsm/kg (285-295); Potassium 3.6 mmol/L (3.5-5.1); Sodium 138 mmol/L (136-145); Total Bilirubin 0.4 mg/dL (0.15-1.2); Total Protein 8.4 g/dL (6.6-8.7)
[2022-07-22 14:35] LABS: Acetaminophen < 5.0 ug/mL (10-30); Alcohol Level < 10 mg/dL (0-10); Salicylate < 0.3 mg/dL (3-10)
[2022-07-22 14:45] VITALS: BP 177/122; PULSE 110; RESP 19; O2SAT 100
[2022-07-22] MEDS: propranolol 20 mg Tablet PO (14:49)
[2022-07-22 15:03] LABS: Amphetamines Screen Urine Positive (Negative); Barbiturates Screen Urine Negative (Negative); Benzodiazepines Screen Urine Negative (Negative); Cocaine Screen Urine Negative (Negative); Opiate Screen Urine Negative (Negative); PCP Screen Urine Negative (Negative); THC Screen Urine Positive (Negative)
[2022-07-22] MEDS: hyDRALAzine 10 mg Tablet PO (15:41)
[2022-07-22 16:29] VITALS: BP 158/107; PULSE 110; RESP 18; O2SAT 100
--- NOTE | 2022-07-22 16:31 | PC.NURSE ---
Physician notified of blood pressure of 177/122. Hydralazine was ordered and BP was lowered to 158/107. Physician notified vo to continue with transfer to [facility]. [facility] nurse was notified.
[2022-07-22 16:33] VITALS: BP 157/99; PULSE 86; RESP 20; TEMP 36.6; O2SAT 99
--- NOTE | 2022-07-22 17:32 | PC.NURSE ---
32y/o female admitted involuntary from ED to NPU room 127-1 due to acute psychosis, related to use of drugs,and SI/HI. Report received from ER nurse that pt. was brought to ED by police due to verbal altercation with mother, which whom she lives with. Also patient stated she stared screaming at her mom and she called the police. Reported upon police arrival at house pt. speech was disorganized. While in ED, pt. it was reported pt. was laughing inappropriately and experiencing flight of ideas, and disorganized thought proccess. During admit assessment pt. was cooperative but anxious. Skin intact. Also her speech was hard to understand at time. She was positive for Meth and Marijauna. Denies SI/HI; avh. Denies depression. Rates anxiety a 5. Orientated to unit.
[2022-07-22] MEDS: hyDROXYzine 25 mg Capsule 50 MG PO (19:56)
[2022-07-22] MEDS: lamoTRIgine 100 mg Tablet PO (19:56)
--- NOTE | 2022-07-22 20:00 | PC.NURSE ---
PRN vistaril was given as ordered for anxiety per pt request.
[2022-07-22 20:26] VITALS: BP 139/81; PULSE 90; RESP 19; TEMP 37; O2SAT 99
[2022-07-23 06:00] VITALS: BP 129/77; PULSE 91; RESP 16; TEMP 36.4; O2SAT 99
[2022-07-23] MEDS: lamoTRIgine 100 mg Tablet PO ×2 (08:08→20:01)
[2022-07-23] MEDS: duloxetine 60 mg Capsule PO ×2 (08:08→18:11)
[2022-07-23] MEDS: propranolol 20 mg Tablet PO ×2 (08:08→18:10)
[2022-07-23] MEDS: ziprasidone hcl 60 mg Capsule PO ×2 (08:08→18:10)
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
[2022-07-23 14:00] VITALS: BP 116/74; PULSE 73; RESP 16; TEMP 36.6; O2SAT 100
[2022-07-23 21:10] VITALS: BP 112/72; PULSE 64; RESP 16; TEMP 36.9; O2SAT 95
[2022-07-24 06:00] VITALS: BP 145/92; PULSE 58; RESP 16; TEMP 36.6; O2SAT 98
[2022-07-24] MEDS: lamoTRIgine 100 mg Tablet PO ×2 (07:35→22:19)
[2022-07-24] MEDS: ziprasidone hcl 60 mg Capsule PO ×2 (07:35→17:25)
[2022-07-24] MEDS: propranolol 20 mg Tablet PO ×2 (07:35→22:20)
[2022-07-24] MEDS: duloxetine 60 mg Capsule PO ×2 (07:35→22:19)
--- NOTE | 2022-07-24 08:39 | PC.NURSE ---
PT REPORTS NO BM SINCE 07/21/22, BS HYPOACTIVE IN ALL 4 QUADRANTS. NEW ORDER RECEIVED FOR MOM 30 MLS PO DAILY PRN. PT IS AGREEABLE TO TAKE. EDUCATION PROVIDED ON INCREASING ACTIVITY AND INCREASING WATER INTAKE. PT DOES VERBALIZE UNDERSTANDING.
[2022-07-24] MEDS: acetaminophen 325 mg Tablet 650 MG PO (08:43)
[2022-07-24 14:00] VITALS: BP 100/63; PULSE 82; RESP 16; TEMP 36.6; O2SAT 98
[2022-07-24] MEDS: magnesium hydroxide 30 mL UDC PO (15:16)
--- NOTE | 2022-07-24 15:59 | P.NPUPN_ITS ---
Subjective NPU Subjective: Patient is a 32-year-old white female admitted after using methamphetamine with acute psychosis and major depression and along with borderline personality disorder. Patient continued to struggle with maintaining appropriate hygiene. She had required redirection and prompting for attending to activities of daily living. She had continued to appear confused and was reporting that she was feeling better despite isolating herself throughout much of the day with limited interaction with her peers. She continued to reiterate that her lack of desire to receive inpatient substance abuse treatment despite repeated hospitalizations over the last year with continued decompensation secondary to illicit drug use. Mental Status Exam MSE Comments: This is an obese, white female, in hospital scrubs, with a disheveled appearance and poor hygiene along with poor dentition who appeared to be in moderate distress. Her gait remained unsteady. Her mood was described as good. Her affect was mood incongruent and flat. The patient did appear at times to be responding to internal stimuli. Her speech was slurred and slow and difficult to understand. There was evidence of paranoia and she appeared at times hypervigilant as if she were responding to internal stimuli. She had endorsed auditory hallucinations but stated that she did not understand what she was hearing. Her attention span appeared impaired. Her insight judgment and impulse control are all impaired. Vitals/I&O/Wt Last Vital Signs Temp 98 F 07/24/22 14:00 Pulse 82 07/24/22 14:00 Resp 16 07/24/22 14:00 BP 100/63 07/24/22 14:00 Pulse Ox 98 07/24/22 14:00 O2 Del Method 07/24/22 14:00 Data NPU 07/22/22 13:30 07/22/22 13:30 A&P Assessment and plan (1) Acute psychosis: (2) Methamphetamine abuse: (3) Borderline personality disorder: (4) Major depressive disorder, recurrent: Plan 32-year-old white female with a history of psychotic symptoms along with a history of borderline personality disorder and methamphetamine use admitted with psychotic symptoms likely in the context of use of methamphetamine again with recent discharge less than one month ago. #1. Therapeutic observation 15-minute checks on the unit. #2. Patient remains on Cymbalta 120 mg daily, Lamictal 100 mg twice a day, Propranolol 20mg bid, and Geodon 60 mg twice a day as prescribed #3. Encourage individual group and milieu therapy. #4. Encourage sobriety at the highest level of ability possible, she may need signficant substance abuse treatment when stabilized here. Consider guardianship? Patient has had repeated hospitalizations, no insight, unwilling to receive treatment. Involuntary Hold Information 96 Hour Hold: 96 Hour Involuntary Admission: Yes 96 Hour Hold Ending Date: 07/26/22 96 Hour Hold Ending Time: 01:32 Attestations NPU Medical Necessity Statement*: Patient will be hospitalized neuropsychiatric unit with expected care to cross 2 midnights with the patient's likely length of stay expected to be 5-7 days. Coding Level of Care Code Acute Code for [facility] Fwd Diagnoses Acute psychosis F23 Methamphetamine abuse F15.10 Borderline personality disorder F60.3 Major depressive disorder, recurrent F33.9
[2022-07-24 22:00] VITALS: BP 122/74; PULSE 76; RESP 15; TEMP 36.6; O2SAT 98
--- NOTE | 2022-07-25 05:38 | PC.NURSE ---
pt has been isolative to room, no issues reported or noted.
[2022-07-25 06:00] VITALS: BP 134/93; PULSE 63; RESP 15; TEMP 36.6; O2SAT 95
[2022-07-25] MEDS: ziprasidone hcl 60 mg Capsule PO ×2 (07:45→17:38)
[2022-07-25] MEDS: propranolol 20 mg Tablet PO ×2 (07:45→21:40)
[2022-07-25] MEDS: duloxetine 60 mg Capsule PO ×2 (07:45→21:34)
[2022-07-25] MEDS: lamoTRIgine 100 mg Tablet PO ×2 (07:45→21:35)
[2022-07-25] MEDS: acetaminophen 325 mg Tablet 650 MG PO (08:32)
[2022-07-25] MEDS: nicotine 21 mg Patch 1 PATCH TRANSDERMA (08:32)
[2022-07-25] MEDS: magnesium hydroxide 30 mL UDC PO (09:17)
--- NOTE | 2022-07-25 09:18 | PC.NURSE ---
PRN MILK OF MAGNESIA 30 ML GIVEN PO PER PT C/O STATED CONSTIPATION, ALTHOUGH SHE REPORTS TO THIS STAFF MEMBER SHE HAS BEEN HAVING BOWEL MOVEMENTS FINE BUT STILL REQUESTED JUST ONE MORE DOSE OF THAT
[2022-07-25 14:00] VITALS: BP 132/88; PULSE 74; RESP 18; TEMP 36.7; O2SAT 99
--- NOTE | 2022-07-25 17:01 | W.PM.NPUPNS ---
Subjective NPU Subjective: Patient is a 32-year-old white female admitted after using methamphetamine with acute psychosis and major depression and along with borderline personality disorder. She reported feeling better today. She reported that she was no longer hearing voices and appeared less confused. She was able to eat and reported that she wished to return home. She had continued to express desire to not receive more intensive services for her substance use despite repeated hospitalizations for methamphetamine use. She had been able to complete activities of daily living today. She had reported that she would return home and described having stress in the home with many people in the home often stimulating her and often putting her at risk to use. She had reported compliance with medications. Mental Status Exam MSE Comments: This is an obese, white female, in hospital scrubs, with a disheveled appearance and poor hygiene along with poor dentition who appeared to be in moderate distress. Her gait was steady. Her mood was described as good. Her affect was mood congruent today. The patient did appear at times to be responding to internal stimuli. Her speech normal in regards to rhythm and prosody with a slightly diminished rate. There was no evidence of paranoia and she did not appear to be responding to internal stimuli. There was no evidence of any delusional thinking. Her attention span appeared limited.. Her insight and judgment were poor. Her impulse control is limited. Her intelligence appeared commensurate with mild cognitive impairment. Vitals/I&O/Wt Last Vital Signs Temp 98.0 F 07/25/22 14:00 Pulse 74 07/25/22 14:00 Resp 18 07/25/22 14:00 BP 132/88 07/25/22 14:00 Pulse Ox 99 07/25/22 14:00 O2 Del Method 07/25/22 06:00 Data NPU 07/22/22 13:30 07/22/22 13:30 A&P Assessment and plan (1) Acute psychosis: (2) Methamphetamine abuse: (3) Borderline personality disorder: (4) Major depressive disorder, recurrent: Plan 32-year-old white female with a history of psychotic symptoms along with a history of borderline personality disorder and methamphetamine use admitted with psychotic symptoms likely in the context of use of methamphetamine again with recent discharge less than one month ago. #1. Therapeutic observation 15-minute checks on the unit. #2. Patient remains on Cymbalta 120 mg daily, Lamictal 100 mg twice a day, Propranolol 20mg bid, and Geodon 60 mg twice a day as prescribed #3. Encourage individual group and milieu therapy. #4. Encourage sobriety at the highest level of ability possible, she may need signficant substance abuse treatment when stabilized here. Consider guardianship? Patient has had repeated hospitalizations, no insight, unwilling to receive treatment. Involuntary Hold Information 96 Hour Hold: 96 Hour Involuntary Admission: Yes 96 Hour Hold Ending Date: 07/26/22 96 Hour Hold Ending Time: 01:32 Attestations NPU Medical Necessity Statement*: Patient will be hospitalized neuropsychiatric unit with expected care to cross 2 midnights with the patient's likely length of stay expected to be 1-2 days. Coding Level of Care Code Acute Code for [facility] Fwd Diagnoses Acute psychosis F23 Methamphetamine abuse F15.10 Borderline personality disorder F60.3 Major depressive disorder, recurrent F33.9
[2022-07-25 18:20] LABS: Lamotrigine (Lamictal) Level 1.9 mcg/mL (2.5-15.0)
[2022-07-25 21:46] VITALS: BP 109/74; PULSE 73; RESP 16; TEMP 36.5; O2SAT 99
--- NOTE | 2022-07-26 05:04 | PC.NURSE ---
pt denies SI, HI, AVH, reports A3, denies depression, she's isolative to room but will come to nurse's station for snacks, socialize with peers in hallway and return to room. She has been sleeping all night, no distress noted.
[2022-07-26 06:00] VITALS: BP 103/75; PULSE 89; RESP 15; O2SAT 98
[2022-07-26] MEDS: propranolol 20 mg Tablet PO (09:00)
[2022-07-26] MEDS: lamoTRIgine 100 mg Tablet PO (09:00)
[2022-07-26] MEDS: duloxetine 60 mg Capsule PO (09:00)
[2022-07-26] MEDS: ziprasidone hcl 60 mg Capsule PO (09:00)
[2022-07-26] MEDS: nicotine 21 mg Patch 1 PATCH TRANSDERMA (09:06)
--- NOTE | 2022-07-26 09:55 | DCPLANNER ---
IMM completed 07/26/22 @ 5102. Pt was given a copy of rights and stated she understood her rights.
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
[2022-07-26 12:18] VITALS: BP 103/75; PULSE 89; RESP 15; O2SAT 98
--- NOTE | 2022-07-26 13:46 | PC.NURSE ---
discharge instruction discussed an left with patient. pt states understanding an no questions asked. pt leaving with ready transport. home medication returned to patient from [facility] pt states all belonging returned.
== END 2022-07-26 13:51 | disposition home or self-care (01) | DRG 897 ==
LOC: ER 14:07 → NP 15:16
PROVIDERS: Admitting Provider Psychiatry & Neurology Psychiatry; Emergency Provider Physician Assistant; Visit Provider Psychiatry & Neurology Psychiatry
DX: F15.159 Other stimulant abuse with stimulant-induced psychotic disorder, unspecified (principal); F33.9 Major depressive disorder, recurrent, unspecified; F17.210 Nicotine dependence, cigarettes, uncomplicated; F10.91 Alcohol use, unspecified, in remission; F60.3 Borderline personality disorder
CPT/HCPCS: 36415; 80053; 80175; 80306; 80307; 84703; 85025; 97150; 97165; 99238; 99285

== ENCOUNTER 2022-12-24 10:59 | Emergency (ER) | payer MEDICARE, MEDICAID, SELFPAY ==
[2022-12-24 11:00] VITALS: BP 164/109; PULSE 89; RESP 18; TEMP 37.3; O2SAT 97; BMI 31.9
--- NOTE | 2022-12-24 11:12 | W.ED.EXTPRO ---
HPI - Extremity Problem General: Chief complaint: Extremity Injury, Lower Stated complaint: Leg pain Time Seen by Provider: 12/24/22 11:07 Source: patient Mode of arrival: EMS Limitations: no limitations History of Present Illness: This patient was transported to the emergency department by EMS. She called EMS to transport her to the emergency department because primarily she is out of her medications and also states she has leg cramps which are chronic for her. She denies any change in neck condition, new injury, falls etc. She admits to missing her mental health appointment last week. She states she ate breakfast and has been drinking water regularly. She denies any thoughts of harming herself or others. She denies fevers chills nausea vomiting diarrhea or other constitutional symptoms. Associated symptoms: Deny chest pain, fever(s) or rash Review of Systems Const: Denies: fever(s) or chills ENMT: Denies: odynophagia, nasal congestion or nasal obstruction Card: Denies: chest pain or palpitations Resp: Denies: dyspnea, productive cough or non-productive cough GI: Denies: abdominal pain, nausea or vomiting : Denies: flank pain, difficulty voiding, dysuria or urinary frequency Musc: Reports: extremity pain Skin/Breast: Denies: rash Neuro: Denies: headache(s), numbness in extremities or weakness in extremities Psych: Reports: anxiety and mood swings; Denies: visual hallucinations, auditory hallucinations, suicidal ideation or homicidal ideation Endo: Denies: polyuria, polydipsia or tired all the time FORMERLY [facility], [facility]–1983 ED PFSH: Medical History Abnormal uterine bleeding (AUB) Amenorrhea Complex cyst of right ovary Oligomenorrhea Psychiatric care Uterine bleeding Family History Father Colon cancer onset unknown Hyperlipidemia Heart disease Hypertension Family/Other No problems noted. 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 She makes good eye contact and answers questions readily in a goal-directed fluent voice. Const: COMMON NORMALS: no acute distress, average body habitus, patient oriented x3 and alert GENERAL APPEARANCE: cooperative and comfortable HENMT: COMMON NORMALS: normocephalic, Normal nasal mucous membranes and turbinates present, moist oral mucous membranes and oropharynx normal HEAD & SCALP: normocephalic NOSE: Normal nasal mucous membranes and turbinates present Eye: COMMON NORMALS: Equal, round and reactive pupils present, EOMs intact bilaterally and conjunctivae normal CONJUNCTIVA: Yes conjunctivae normal PUPIL: Yes Equal, round and reactive pupils present Neck/C-Spine: COMMON NORMALS: full ROM, no lymphadenopathy and Thyroid normal THYROID: Thyroid normal Chest: COMMONS NORMALS: normal inspection of the chest Resp: COMMON NORMALS: normal respiratory effort, No retractions, No use of accessory muscles and clear to auscultation bilaterally AUSCULTATION: clear to auscultation bilaterally Cardio: COMMON NORMALS: regular rate, regular rhythm and Peripheral pulses 2+ throughout RATE: regular rate RHYTHM: regular rhythm PERIPHERAL PULSES: Peripheral pulses 2+ throughout GI: COMMON NORMALS: Normal to inspection, nondistended, normoactive bowel sounds present : COMMON NORMALS: Yes no CVA tenderness BLADDER/KIDNEY EXAM: Yes no CVA tenderness Back/Pelvis: COMMON NORMALS: no CVA tenderness, thoracic and lumbar spine normal to inspection, no thoracic nor lumbar tenderness, thoraco-lumbar ROM normal and straight leg raise negative bilaterally Extremity: COMMON NORMALS: normal to inspection, full ROM, capillary refill normal, no joint enlargement, no calf tenderness and no pedal edema NARRATIVE EXTREMITY EXAM: Examination of both lower extremities with the of alleged affected leg being the right leg reveals no gross abnormalities. She does have per facial circular abrasion to the medial side of her right foot has appearance consistent with a skin blister. There is no surrounding erythema proximal lymphangitis lymphadenopathy. Good muscle tone she has normal range of motion. She has no edema to either lower extremity. Both extremities are neurovascular intact. Neuro: COMMON NORMALS: patient oriented x3, moves all extremities, no focal motor deficits and no sensory deficits noted SENSORIUM/ORIENTATION: Yes alert CRANIAL NERVES: Yes CN normal except as noted Psych: COMMON NORMALS: mental status grossly normal, Normal thought process present, cooperative, speech normal, activity/motor behavior normal, denies hallucinations, denies homicidal ideation and denies suicidal ideation SPEECH: Yes normal speech THOUGHT PROCESS: Normal thought process present INSIGHT: Fair insight present (Psych) JUDGEMENT: Fair judgement present (Psych) Skin: COMMON NORMALS: no rashes or lesions noted, turgor normal and no petechiae GENERAL SKIN EXAM: no rashes or lesions noted and turgor normal Course Reevaluation(s): Reevaluation #1: Pharmacy was able to reconcile her medications and apparently she does have sufficient medications waiting for her at the pharmacy of all her medications which included propranolol Geodon Lamictal and Cymbalta. This was shared with the patient who acknowledged that fact. Time: 11:26 Reevaluation #2: Patient remained stable. She has intact decision-making capacity, has not actively suicidal or homicidal. She has no loosening of associations or other concerning behavioral features at this time. Stable to be discharged with outpatient follow-up. Patient again has adequate medications available to her. Time: 12:28 Vital Signs: Vital signs: Vital Signs Temperature 99.2 F 12/24/22 11:00 Pulse Rate 89 12/24/22 11:00 Respiratory Rate 18 12/24/22 11:00 Blood Pressure 164/109 12/24/22 11:00 Pulse Oximetry 97 12/24/22 11:00 Oxygen Delivery Me thod Room Air 12/24/22 11:00 MDM - Extremity (Nontraumatic) Medical Decision Making Patient was transported by EMS for ostensibly medication refill. She admits to being out of her medications for the past 2 days. She states that she missed an appointment with her mental health professional and therefore did not have refills. She also states she has chronic leg cramps unclear etiology and no recent injury. Clinical examination reveals her to be alert and cooperative. Her mental status appears to be intact with intact decision-making capacity. She was moderate risk for admission to homicidality or suicidality. Her musculoskeletal exam was totally unremarkable. Her skin exam revealed a small approximately 2 cm blister to the medial right foot without any signs of infection Plan will be to have social services analyst weigh in and see if we can get her a follow-up appointment at [facility] and also give her a temporary refills of her usual medications. Regarding her leg cramp issue. Again I do not see any clinical findings that suggest a concerning symptoms or pathologic condition. I have recommended [id number] magnesium on a daily basis as well as at least 2 quarts of water daily to help ameliorate the symptoms. No evidence of an ongoing emergency medical condition at this time. Medical Records I reviewed the patient's medical records. Prior history of personality disorder and also medication profile reviewed. Discharge Plan Discharge Patient Disposition: Home Clinical Impression: Borderline personality disorder Condition: Stable Prescriptions: No Action propranolol 20 mg tablet 20 mg PO BID 30 Days Qty: 60 1RF duloxetine [Cymbalta] 60 mg capsule,delayed release(DR/EC) 60 mg PO BID 30 Days Qty: 60 1RF lamotrigine 150 mg tablet 150 mg PO BID tizanidine 4 mg tablet 4 mg PO BID ziprasidone HCl 60 mg capsule 60 mg PO BID@07,17 Discharge Orders: Discharge ED (Routine); Ordered 12/24/22 Ordered By: Renny Michaud Discharge Diet: Advance as tolerated Discharge Activity: Resume usual activity Patient Instructions: Opioid Safety, Pain Management Activity Restrictions/Additional Instructions: You have prescriptions available at the pharmacy. Obtaining the remainder of your prescriptions and continue all your usual medications as prescribed. We recommend drinking at least 2 quarts of water daily. We also recommend taking [id number] magnesium 400 mg daily to help reduce leg cramps. Follow-up with [facility] this coming week. If you have any new or worsening symptoms you are welcome to return to the emergency department. Coding Level of Care Code ED Life Enrichment Assistant for Adelia Cat
--- NOTE | 2022-12-24 11:33 | PC.PHAR ---
pt states she takes care of her own medications-sary has tizanidine 4mg bid ready for the pt to [facility] ext shows last filled 12/19/22 30d/s-noemy bernstein has 2 week supply ready to [facility] ziprasidone 60mg bid and propranolol 20mg bid filled 12/24/22 pt states been out since friday12/20/22-
== END 2022-12-24 13:10 | disposition home or self-care (01) ==
PROVIDERS: Emergency Provider Emergency Medicine
DX: F60.3 Borderline personality disorder (principal); R25.2 Cramp and spasm
CPT/HCPCS: 99282

== ENCOUNTER 2022-12-25 17:44 | Emergency (ER) | payer MEDICARE, MEDICAID, SELFPAY ==
[2022-12-25 17:50] VITALS: BP 128/92; PULSE 87; RESP 16; O2SAT 98
--- NOTE | 2022-12-25 18:18 | XRR_ITS ---
PROCEDURE INFORMATION: Exam: XR Chest Exam date and time: 12/25/2022 6:23 PM Age: 32 years old Clinical indication: Cough; Additional info: Suicidal ideation, TECHNIQUE: Imaging protocol: Radiologic exam of the chest. Views: 1 view. COMPARISON: CR XR chest 1V portable [id number] 06/25/2021 4:01 PM FINDINGS: Lungs: No consolidation. Pleural spaces: No pleural effusion. No pneumothorax. Heart/Mediastinum: No cardiomegaly. Bones/joints: Unremarkable. XR/XR chest 1V portable [id number] IMPRESSION: 1. No acute abnormality demonstrated. 2. There is no interval change from the prior examination.
--- NOTE | 2022-12-25 18:22 | ED.C_ITS ---
Documented by User: Yossi Barraza DO 12/25/22 19:51 HPI - Psych General: Chief Complaint: Psychiatric Symptoms Stated Complaint: Si Time Seen by Provider: 12/25/22 18:13 History of Present Illness: Presents to the ER with suicidal ideation. Patient was kicked out of her long-term last night for abusing drugs. Patient states being homeless makes her want to jump out into traffic and kill herself. Review of Systems General: Reports: 10 or more systems reviewed and unremarkable except in HPI and below PFSH ED PFSH: Medical History Abnormal uterine bleeding (AUB) Amenorrhea Complex cyst of right ovary Oligomenorrhea Psychiatric care Uterine bleeding Family History Father Colon cancer onset unknown Hyperlipidemia Heart disease Hypertension Family/Other No problems noted. 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 Physical Exam Const: COMMON NORMALS: no acute distress, average body habitus, patient oriented x3, no limitations, healthy appearing, alert and well nourished HENMT: COMMON NORMALS: normocephalic, atraumatic, hearing grossly normal bilaterally, external ears normal, Normal external nose present and moist oral mucous membranes HEAD & SCALP: normocephalic and atraumatic NOSE: Normal external nose present EXTERNAL EAR: Yes external ears normal Neck/C-Spine: COMMON NORMALS: full ROM, no lymphadenopathy, supple, no meningeal signs, no JVD and Thyroid normal THYROID: Thyroid normal Chest: COMMONS NORMALS: normal inspection of the chest and normal palpation of entire chest wall Resp: COMMON NORMALS: normal respiratory effort, No retractions, No use of accessory muscles and clear to auscultation bilaterally AUSCULTATION: clear to auscultation bilaterally Cardio: COMMON NORMALS: no JVD, regular rate, regular rhythm, S1 normal heart sound present, S2 normal heart sound present, No gallops present (Cardio), No clicks present (Cardio), No murmurs present (Cardio) and No rub (Cardio) RATE: regular rate RHYTHM: regular rhythm HEART SOUNDS: S1 normal heart sound present and S2 normal heart sound present GI: COMMON NORMALS: Normal to inspection, nondistended, normoactive bowel sounds present, Soft to palpation, non-tender, No hepatosplenomegaly present and no masses PALPATION: Yes Soft to palpation and Yes No hepatosplenomegaly present : COMMON NORMALS: Yes no CVA tenderness BLADDER/KIDNEY EXAM: Yes no CVA tenderness Back/Pelvis: COMMON NORMALS: no CVA tenderness Neuro: COMMON NORMALS: patient oriented x3 SENSORIUM/ORIENTATION: Yes alert MENINGEAL SIGNS: Yes no meningeal signs Course Vital Signs: Vital signs: Vital Signs Pulse Rate 87 12/25/22 17:50 Respiratory Rate 16 12/25/22 17:50 Blood Pressure 128/92 12/25/22 17:50 Pulse Oximetry 98 12/25/22 17:50 Oxygen Delivery Me thod Room Air 12/25/22 17:50 MDM - Psych Medical Decision Making Patient presents to the ER with suicidal ideation. Physical exam was performed lab work was obtained as anticipated patient will be admitted to the appropriate psychiatric facility following lab work. Differential Diagnosis Likely suicidal ideation; Unlikely acute psychosis, chronic schizophrenia, bipolar disorder, depression or drug-induced psychotic disorder Medical Records I reviewed the patient's medical records. Lab Data I reviewed the patient's lab results. 12/25/22 19:13 12/25/22 19:13 Radiology Impressions Chest X-Ray 12/25/22 18:18 IMPRESSION: 1. No acute abnormality demonstrated. 2. There is no interval change from the prior examination. Laboratory Results WBC 8.15 10^3/uL (3.29-11.43) 12/25/22 19:13 RBC 4.50 10^6/uL (3.85-5.65) 12/25/22 19:13 Hgb 14.10 g/dL (11.27-16.99) 12/25/22 19:13 Hct 41.8 % (36-47) 12/25/22 19:13 MCV 92.9 fl (85-98) 12/25/22 19:13 MCH 31.3 pg (27-33) 12/25/22 19:13 MCHC 33.7 g/dL (30-55) 12/25/22 19:13 RDW 12.7 % (12.1-15.1) 12/25/22 19:13 Plt Count 246 10^3/cmm (157-399) 12/25/22 19:13 MPV 10.0 fL (7.4-10.4) 12/25/22 19:13 Neut % (Auto) 48.1 % 12/25/22 19:13 Lymph % (Auto) 42.7 % 12/25/22 19:13 Benton % (Auto) 5.8 % 12/25/22 19:13 Eos % (Auto) 2.7 % 12/25/22 19:13 Baso % (Auto) 0.5 % 12/25/22 19:13 Neut # (Auto) 3.92 10^3/uL (1.8-7.7) 12/25/22 19:13 Lymph # (Auto) 3.5 10^3/uL (0.8-4.8) 12/25/22 19:13 Benton # (Auto) 0.5 10^3/uL (0.2-0.9) 12/25/22 19:13 Eos # (Auto) 0.2 10^3/uL (0.0-0.8) 12/25/22 19:13 Baso # (Auto) 0.0 10^3/uL (0.0-0.1) 12/25/22 19:13 Nucleated RBC % (auto) 0 % 12/25/22 19:13 Nucleated RBCs # 0.0 /100WBC 12/25/22 19:13 Sodium 139 mmol/L (136-145) 12/25/22 19:13 Potassium 3.6 mmol/L (3.5-5.1) 12/25/22 19:13 Chloride 102 mmol/L (98-107) 12/25/22 19:13 Carbon Dioxide 26 mmol/L (22-29) 12/25/22 19:13 Anion Gap 14.6 (5-19) 12/25/22 19:13 BUN 17 mg/dL (6-20) 12/25/22 19:13 Creatinine 0.8 mg/dL (0.5-0.9) 12/25/22 19:13 GFR Calculation 82.1 mL/min (90-130) L 12/25/22 19:13 Glucose 94 mg/dL (65-115) 12/25/22 19:13 Calculated Osmolality 289 mOsm/kg (285-295) 12/25/22 19:13 Calcium 9.1 mg/dL (8.5-10.5) 12/25/22 19:13 Total Bilirubin 0.3 mg/dL (0.15-1.2) 12/25/22 19:13 AST 12 U/L (0-32) 12/25/22 19:13 ALT 13 U/L (0-33) 12/25/22 19:13 Alkaline Phosphatase 84 U/L (35-105) 12/25/22 19:13 Total Protein 6.9 g/dL (6.6-8.7) 12/25/22 19:13 Albumin 4.4 g/dL (3.5-5.2) 12/25/22 19:13 Globulin 2.5 g/dL (1.3-4.6) 12/25/22 19:13 HCG, Qual Negative (Negative) 12/25/22 18:03 Urine Color Yellow (Yellow) 12/25/22 18:03 Urine Appearance Sl hazy (CLEAR) A 12/25/22 18:03 Urine pH 5 (5-7) 12/25/22 18:03 Ur Specific Weir 1.020 (1.005-1.030) 12/25/22 18:03 Urine Protein Trace (Negative) 12/25/22 18:03 Urine Glucose (UA) Norm (Normal) 12/25/22 18:03 Urine Ketones 1+ (Negative) H 12/25/22 18:03 Urine Blood 3+ (Negative) H 12/25/22 18:03 Urine Nitrate Negative (Negative) 12/25/22 18:03 Urine Bilirubin Not Reportable 12/25/22 18:03 Urine Urobilinogen 1 mg/dL (Negative) H 12/25/22 18:03 Ur Leukocyte Esterase Negative (Negative) 12/25/22 18:03 Urine RBC 5-10 /hpf (0-2) H 12/25/22 18:03 Urine WBC 0-4 /hpf (0-5) H 12/25/22 18:03 Ur Squamous Epith Cells 0-4 /hpf (0-5) H 12/25/22 18:03 Amorphous Sediment 1+ /hpf 12/25/22 18:03 Urine Bacteria Trace /hpf (NONE) 12/25/22 18:03 Urine Mucus 2+ /hpf 12/25/22 18:03 Salicylates < 0.3 mg/dL (3-10) L 12/25/22 19:13 Urine Opiates Screen Negative ng/mL (Negative) 12/25/22 18:03 Acetaminophen < 5.0 ug/mL (10-30) L 12/25/22 19:13 Ur Barbiturates Screen Negative ng/mL (Negative) 12/25/22 18:03 Ur Phencyclidine Scrn Negative ng/mL (Negative) 12/25/22 18:03 Ur Amphetamines Screen Negative ng/mL (Negative) 12/25/22 18:03 U Benzodiazepines Scrn Negative ng/mL (Negative) 12/25/22 18:03 Urine Cocaine Screen Negative ng/mL (Negative) 12/25/22 18:03 U Marijuana (THC) Screen Positive ng/mL (Negative) H 12/25/22 18:03 Ethyl Alcohol < 10 mg/dL (0-10) 12/25/22 19:13 SARS-CoV-2 Ag (Rapid) negative (Negative) 12/25/22 20:54 EKG Data EKG 1: I personally reviewed and interpreted this EKG as follows: EKG interpretation date: 12/25/22 EKG interpretation time: 19:43 Prior EKG tracings: not available for review Interpretation: EKG showed ventricular rate 76 bpm, KS interval 165, QRS duration 79, QTc of 448, sinus rhythm, Discharge Plan Discharge Patient Disposition: Xfer Psychiatric Hosp Clinical Impression: Suicidal ideation Condition: Stable Coding Level of Care Code ED Industrial Relations Manager for Chg Fwd Documented by User: Jessica Wadsworth MD 12/26/22 04:32 HPI - Psych 2 General: Chief Complaint: Psychiatric Symptoms Stated Complaint: Si Time Seen by Provider: 12/25/22 18:13 PFSH ED PFSH: Medical History Abnormal uterine bleeding (AUB) Amenorrhea Complex cyst of right ovary Oligomenorrhea Psychiatric care Uterine bleeding Family History Father Colon cancer onset unknown Hyperlipidemia Heart disease Hypertension Family/Other No problems noted. 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 Course Vital Signs: Vital signs: Vital Signs Pulse Rate 87 12/25/22 17:50 Respiratory Rate 16 12/25/22 17:50 Blood Pressure 128/92 12/25/22 17:50 Pulse Oximetry 98 12/25/22 17:50 Oxygen Delivery Me thod Room Air 12/25/22 17:50 MDM - Psych Medical Decision Making Patient presents to the ER with suicidal ideation. Physical exam was performed lab work was obtained as anticipated patient will be admitted to the appropriate psychiatric facility following lab work. Patient excepted at [facility] will transfer there as we have no psychiatric bed availability here. Lab Data 12/25/22 19:13 12/25/22 19:13 Radiology Impressions Chest X-Ray 12/25/22 18:18 IMPRESSION: 1. No acute abnormality demonstrated. 2. There is no interval change from the prior examination. Laboratory Results WBC 8.15 10^3/uL (3.29-11.43) 12/25/22 19:13 RBC 4.50 10^6/uL (3.85-5.65) 12/25/22 19:13 Hgb 14.10 g/dL (11.27-16.99) 12/25/22 19:13 Hct 41.8 % (36-47) 12/25/22 19:13 MCV 92.9 fl (85-98) 12/25/22 19:13 MCH 31.3 pg (27-33) 12/25/22 19:13 MCHC 33.7 g/dL (30-55) 12/25/22 19:13 RDW 12.7 % (12.1-15.1) 12/25/22 19:13 Plt Count 246 10^3/cmm (157-399) 12/25/22 19:13 MPV 10.0 fL (7.4-10.4) 12/25/22 19:13 Neut % (Auto) 48.1 % 12/25/22 19:13 Lymph % (Auto) 42.7 % 12/25/22 19:13 Benton % (Auto) 5.8 % 12/25/22 19:13 Eos % (Auto) 2.7 % 12/25/22 19:13 Baso % (Auto) 0.5 % 12/25/22 19:13 Neut # (Auto) 3.92 10^3/uL (1.8-7.7) 12/25/22 19:13 Lymph # (Auto) 3.5 10^3/uL (0.8-4.8) 12/25/22 19:13 Benton # (Auto) 0.5 10^3/uL (0.2-0.9) 12/25/22 19:13 Eos # (Auto) 0.2 10^3/uL (0.0-0.8) 12/25/22 19:13 Baso # (Auto) 0.0 10^3/uL (0.0-0.1) 12/25/22 19:13 Nucleated RBC % (auto) 0 % 12/25/22 19:13 Nucleated RBCs # 0.0 /100WBC 12/25/22 19:13 Sodium 139 mmol/L (136-145) 12/25/22 19:13 Potassium 3.6 mmol/L (3.5-5.1) 12/25/22 19:13 Chloride 102 mmol/L (98-107) 12/25/22 19:13 Carbon Dioxide 26 mmol/L (22-29) 12/25/22 19:13 Anion Gap 14.6 (5-19) 12/25/22 19:13 BUN 17 mg/dL (6-20) 12/25/22 19:13 Creatinine 0.8 mg/dL (0.5-0.9) 12/25/22 19:13 GFR Calculation 82.1 mL/min (90-130) L 12/25/22 19:13 Glucose 94 mg/dL (65-115) 12/25/22 19:13 Calculated Osmolality 289 mOsm/kg (285-295) 12/25/22 19:13 Calcium 9.1 mg/dL (8.5-10.5) 12/25/22 19:13 Total Bilirubin 0.3 mg/dL (0.15-1.2) 12/25/22 19:13 AST 12 U/L (0-32) 12/25/22 19:13 ALT 13 U/L (0-33) 12/25/22 19:13 Alkaline Phosphatase 84 U/L (35-105) 12/25/22 19:13 Total Protein 6.9 g/dL (6.6-8.7) 12/25/22 19:13 Albumin 4.4 g/dL (3.5-5.2) 12/25/22 19:13 Globulin 2.5 g/dL (1.3-4.6) 12/25/22 19:13 HCG, Qual Negative (Negative) 12/25/22 18:03 Urine Color Yellow (Yellow) 12/25/22 18:03 Urine Appearance Sl hazy (CLEAR) A 12/25/22 18:03 Urine pH 5 (5-7) 12/25/22 18:03 Ur Specific Weir 1.020 (1.005-1.030) 12/25/22 18:03 Urine Protein Trace (Negative) 12/25/22 18:03 Urine Glucose (UA) Norm (Normal) 12/25/22 18:03 Urine Ketones 1+ (Negative) H 12/25/22 18:03 Urine Blood 3+ (Negative) H 12/25/22 18:03 Urine Nitrate Negative (Negative) 12/25/22 18:03 Urine Bilirubin Not Reportable 12/25/22 18:03 Urine Urobilinogen 1 mg/dL (Negative) H 12/25/22 18:03 Ur Leukocyte Esterase Negative (Negative) 12/25/22 18:03 Urine RBC 5-10 /hpf (0-2) H 12/25/22 18:03 Urine WBC 0-4 /hpf (0-5) H 12/25/22 18:03 Ur Squamous Epith Cells 0-4 /hpf (0-5) H 12/25/22 18:03 Amorphous Sediment 1+ /hpf 12/25/22 18:03 Urine Bacteria Trace /hpf (NONE) 12/25/22 18:03 Urine Mucus 2+ /hpf 12/25/22 18:03 Salicylates < 0.3 mg/dL (3-10) L 12/25/22 19:13 Urine Opiates Screen Negative ng/mL (Negative) 12/25/22 18:03 Acetaminophen < 5.0 ug/mL (10-30) L 12/25/22 19:13 Ur Barbiturates Screen Negative ng/mL (Negative) 12/25/22 18:03 Ur Phencyclidine Scrn Negative ng/mL (Negative) 12/25/22 18:03 Ur Amphetamines Screen Negative ng/mL (Negative) 12/25/22 18:03 U Benzodiazepines Scrn Negative ng/mL (Negative) 12/25/22 18:03 Urine Cocaine Screen Negative ng/mL (Negative) 12/25/22 18:03 U Marijuana (THC) Screen Positive ng/mL (Negative) H 12/25/22 18:03 Ethyl Alcohol < 10 mg/dL (0-10) 12/25/22 19:13 SARS-CoV-2 Ag (Rapid) negative (Negative) 12/25/22 20:54 Discharge Plan Discharge Patient Disposition: Xfer Psychiatric Hosp Clinical Impression: Suicidal ideation Condition: Stable Coding Level of Care Code ED Industrial Relations Manager for Adelia Cat
[2022-12-25 18:59] LABS: HCG Qualitative Urine. Negative (Negative)
[2022-12-25 19:01] LABS: Add Urine Microscopic? YES; Blood Urine 3+ (Negative); Glucose Urine UA Norm (Normal); Ketones Urine 1+ (Negative); Leukocyte Esterase Urine Negative (Negative); Nitrate Urine Negative (Negative); Protein Urine Trace (Negative); Urine Appearance SL Hazy (CLEAR); Urine Color Yellow (Yellow); Urobilinogen Urine 1 mg/dL (Negative); pH Urine 5 (5-7)
[2022-12-25 19:02] LABS: Add Urine Culture? No; Amorphous Sediment Urine 1+ /hpf; Bacteria Urine TRACE /hpf; Mucus Urine 2+ /hpf; Squamous Epithelial Cell Urine 0-4 /hpf (0-5); WBC Urine 0-4 /hpf (0-5)
[2022-12-25 19:04] LABS: Amphetamines Screen Urine Negative (Negative); Barbiturates Screen Urine Negative (Negative); Benzodiazepines Screen Urine Negative (Negative); Cocaine Screen Urine Negative (Negative); Opiate Screen Urine Negative (Negative); PCP Screen Urine Negative (Negative); THC Screen Urine Positive (Negative)
--- NOTE | 2022-12-25 19:43 | ECG_ITS ---
[facility] Test Date: 2022-12-25 Pat Name: Dena Greene Department: Room: Gender: Female Management Trainee: : 1990 Requested By: Yossi Barraza Order Number: [id number] Timur MD: Jose Cano M.D. Measurements Intervals [place] Rate: 76 P: 28 ME: 165 QRS: 41 QRSD: 79 T: 39 QT: 418 QTc: 470 Interpretive Statements SINUS RHYTHM ANTEROSEPTAL MYOCARDIAL INFARCTION , OF INDETERMINATE AGE [40+ ms Q WAVE IN V1-V4] Compared to ECG 06/25/2021 15:51:51 No significant changes Electronically Signed On 12-25-2022 20:08:34 CDT by Jose Cano M.D. [id number]
[2022-12-25 19:44] LABS: Basophils % 0.5 %; Eosinophils # 0.2 10^3/uL (0.0-0.8); Eosinophils % 2.7 %; Hematocrit 41.8 % (36-47); Lymphocytes # 3.5 10^3/uL (0.8-4.8); Lymphocytes % 42.7 %; Mean Corpuscular HGB Conc 33.7 g/dL (30-55); Mean Corpuscular Hemoglobin 31.3 pg (27-33); Mean Corpuscular Volume 92.9 fl (85-98); Monocytes # 0.5 10^3/uL (0.2-0.9); Monocytes % 5.8 %; Neutrophils # 3.92 10^3/uL (1.8-7.7); Neutrophils % 48.1 %; Nucleated Red Blood Cells % 0 %; Platelet Count 246 10^3/cmm (157-399); Red Cell Distribution Width 12.7 % (12.1-15.1); White Blood Count 8.15 10^3/uL (3.29-11.43)
[2022-12-25 20:10] LABS: Alanine Aminotransferase 13 U/L (0-33); Albumin Level 4.4 g/dL (3.5-5.2); Alkaline Phosphatase 84 U/L (35-105); Anion Gap 14.6 (5-19); Aspartate Amino Transferase 12 U/L (0-32); Blood Urea Nitrogen 17 mg/dL (6-20); Calcium 9.1 mg/dL (8.5-10.5); Carbon Dioxide 26 mmol/L (22-29); Chloride 102 mmol/L (98-107); Globulin 2.5 g/dL (1.3-4.6); Glomerular Filtration Rate 82.1 mL/min (90-130); Glucose 94 mg/dL (65-115); Osmolality Calculated 289 mOsm/kg (285-295); Potassium 3.6 mmol/L (3.5-5.1); Sodium 139 mmol/L (136-145); Total Bilirubin 0.3 mg/dL (0.15-1.2); Total Protein 6.9 g/dL (6.6-8.7)
[2022-12-25 20:16] LABS: Acetaminophen < 5.0 ug/mL (10-30); Alcohol Level < 10 mg/dL (0-10); Salicylate < 0.3 mg/dL (3-10)
[2022-12-25 21:14] LABS: SARS Covid-2 Antigen negative (Negative)
[2022-12-26 02:30] VITALS: PULSE 80; RESP 18; O2SAT 96
[2022-12-26 05:55] VITALS: BP 138/83; PULSE 85; RESP 18; O2SAT 99
--- NOTE | 2023-01-02 16:07 | DCPLANNER ---
manager respiratory care called patient due to no primary care physician - no answer at this time.
--- NOTE | 2023-01-08 11:56 | DCPLANNER ---
land manager called patient due to no primary care physician - no answer at this time, a voicemail was left for patient to return case technician phone call.
== END 2022-12-26 07:02 ==
PROVIDERS: Emergency Medicine; Emergency Provider Emergency Medicine
DX: R45.851 Suicidal ideations (principal); F17.210 Nicotine dependence, cigarettes, uncomplicated; Z20.822 Contact with and (suspected) exposure to COVID-19
CPT/HCPCS: 36415; 71045; 80053; 80306; 80307; 81001; 81025; 85025; 87426; 93005; 99285

== ENCOUNTER 2023-01-02 18:23 | Emergency (ER) | payer MEDICARE, MEDICAID, SELFPAY ==
[2023-01-02 18:38] VITALS: BP 131/75; PULSE 91; RESP 17; TEMP 36.8; O2SAT 98
--- NOTE | 2023-01-02 18:47 | ED.C_ITS ---
HPI - Psych General: Chief Complaint: Psychiatric Symptoms Stated Complaint: MHE Time Seen by Provider: 01/02/23 18:36 Source: patient Mode of arrival: ambulatory Limitations: no limitations History of Present Illness: 32-year-old female with a history of homelessness she was just recently in a psych hospital at [facility] she states she got discharged a day and a half ago states she is stressed as she is still homeless. She denies any suicidality or homicidality. Denies any worsening improving factors. Associated symptoms: Reports depression Review of Systems Const: Denies: fever(s), chills, body aches or change in appetite ENMT: Denies: throat pain or dental pain Card: Denies: chest pain Resp: Denies: dyspnea GI: Denies: abdominal pain, nausea, vomiting or diarrhea Musc: Denies: neck pain or back pain Skin/Breast: Denies: rash Neuro: Denies: headache(s) Psych: Reports: depression PFSH ED PFSH: Medical History Abnormal uterine bleeding (AUB) Amenorrhea Complex cyst of right ovary Oligomenorrhea Psychiatric care Uterine bleeding Family History Father Colon cancer onset unknown Hyperlipidemia Heart disease Hypertension Family/Other No problems noted. 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 Physical Exam Const: COMMON NORMALS: no acute distress, patient oriented x3 and healthy appearing HENMT: COMMON NORMALS: normocephalic and atraumatic HEAD & SCALP: normocephalic and atraumatic Neck/C-Spine: COMMON NORMALS: full ROM and supple Chest: COMMONS NORMALS: normal inspection of the chest Resp: COMMON NORMALS: normal respiratory effort Cardio: COMMON NORMALS: regular rate, regular rhythm and No murmurs present (Cardio) RATE: regular rate RHYTHM: regular rhythm GI: COMMON NORMALS: Normal to inspection, nondistended, normoactive bowel sounds present, Soft to palpation, non-tender and no masses PALPATION: Yes Soft to palpation Extremity: COMMON NORMALS: normal to inspection and full ROM Neuro: COMMON NORMALS: patient oriented x3, moves all extremities and no focal motor deficits Psych: COMMON NORMALS: mental status grossly normal, Normal thought process present and cooperative THOUGHT PROCESS: Normal thought process present Skin: COMMON NORMALS: no rashes or lesions noted and no wounds GENERAL SKIN EXAM: no rashes or lesions noted Course Vital Signs: Vital signs: Vital Signs Temperature 98.3 F 01/02/23 18:38 Pulse Rate 91 01/02/23 18:38 Respiratory Rate 17 01/02/23 18:38 Blood Pressure 131/75 01/02/23 18:38 Pulse Oximetry 98 01/02/23 18:38 Oxygen Delivery Me thod Room Air 01/02/23 18:38 [facility] - Psych Medical Decision Making Patient presents here with depression about being homeless. She had just gotten out of the psych facility she is not suicidal not homicidal I discussed this case with Dr. Fry and she is not actively suicidal or homicidal will discharge at this time did give patient homeless [facility] information along with the crisis center information she is return if worsening she understands agrees to plan. Medical Records I reviewed the patient's medical records. Lab Data I reviewed the patient's lab results. Discharge Plan Discharge Patient Disposition: Home Clinical Impression: Depression, Homeless Condition: Stable Prescriptions: No Action propranolol 20 mg tablet 20 mg PO BID 30 Days Qty: 60 1RF duloxetine [Cymbalta] 60 mg capsule,delayed release(DR/EC) 60 mg PO BID 30 Days Qty: 60 1RF lamotrigine 150 mg tablet 150 mg PO BID tizanidine 4 mg tablet 4 mg PO BID ziprasidone HCl 60 mg capsule 60 mg PO BID@,17 Discharge Orders: Discharge ED (Routine); Ordered 01/02/23 Ordered By: Jessica Wadsworth Discharge Diet: Advance as tolerated Discharge Activity: Resume usual activity Patient Instructions: Depression (ED) Coding Level of Care Code ED Senior Marketing Coordinator for Adelia Cat
== END 2023-01-02 19:41 | disposition home or self-care (01) ==
PROVIDERS: Emergency Provider Emergency Medicine
DX: F32.A Depression, unspecified (principal); Z59.00 Homelessness unspecified; F17.210 Nicotine dependence, cigarettes, uncomplicated
CPT/HCPCS: 99283

== ENCOUNTER 2023-04-01 23:30 | Emergency (ER) | payer MEDICARE, MEDICAID, SELFPAY ==
--- NOTE | 2023-04-01 23:33 | ED.C_ITS ---
HPI - Psych General: Chief Complaint: Psychiatric Symptoms Stated Complaint: psychiatric complaints Time Seen by Provider: 04/01/23 23:33 Source: patient and EMS Mode of arrival: EMS Limitations: no limitations History of Present Illness: 32-year-old female sent here by cici watt when asked her why she is here she states that she does not have heat in her house and she was cold and she has not eaten today. She states she does feel stressed out and wants to stay in the stress unit. She denies any suicidal or homicidal ideations denies any other complaints at this time Associated symptoms: Deny depression Review of Systems Const: Denies: fever(s), chills, body aches or change in appetite Eyes: Denies: blurry vision or eye discomfort ENMT: Denies: throat pain or dental pain Card: Denies: chest pain Resp: Denies: dyspnea GI: Denies: abdominal pain, nausea, vomiting or diarrhea : Denies: dysuria Musc: Denies: neck pain or back pain Skin/Breast: Denies: rash Neuro: Denies: headache(s) Psych: Denies: depression PFSH ED PFSH: Medical History Psychiatric care Complex cyst of right ovary Amenorrhea Oligomenorrhea Abnormal uterine bleeding (AUB) Uterine bleeding Family History Father Colon cancer onset unknown Hyperlipidemia Heart disease Hypertension Family/Other No problems noted. Sister Anesthesia complication Mother Hyperlipidemia Hypertension Grandmother Hyperlipidemia maternal Brother Heart disease Anesthesia complication Denies family history of Ovarian cancer Diabetes Clotting disorder Breast cancer Bleeding disorder Uterine cancer Thyroid disease Stroke Social History Smoking and tobacco/nicotine status: current every day tobacco/nicotine user cigarettes Packs smoked per day: 1 Alcohol intake: former Year of sobriety/quit date alcohol: 05/25 Substance/Drug Use: former Date of last use: 2014 Physical Exam Const: COMMON NORMALS: no acute distress and patient oriented x3 HENMT: COMMON NORMALS: normocephalic and atraumatic HEAD & SCALP: normocephalic and atraumatic Eye: COMMON NORMALS: conjunctivae normal CONJUNCTIVA: Yes conjunctivae normal Chest: COMMONS NORMALS: normal inspection of the chest Resp: COMMON NORMALS: normal respiratory effort Cardio: COMMON NORMALS: regular rate RATE: regular rate GI: INSPECTION: Yes normal to inspection Extremity: COMMON NORMALS: normal to inspection Neuro: COMMON NORMALS: patient oriented x3 Psych: THOUGHT CONTENT: No Suicidality present Course Vital Signs: Vital signs: Vital Signs Temperature 98.3 F 04/01/23 23:39 Pulse Rate 76 04/01/23 23:39 Respiratory Rate 18 04/01/23 23:39 Blood Pressure 153/102 04/01/23 23:39 Pulse Oximetry 100 04/01/23 23:39 Oxygen Delivery Me thod Room Air 04/01/23 23:39 MDM - Psych Medical Decision Making Patient presents here feeling stressed she denies being suicidal or homicidal. I informed her we do not have any psych beds and she states she just wants to go home. She is not a threat to herself and others No radiology studies performed this visit Discharge Plan Discharge Patient Disposition: Home Clinical Impression: Feeling stressed out Condition: Stable Prescriptions: No Action propranolol 20 mg tablet 20 mg PO BID 30 Days Qty: 60 1RF duloxetine [Cymbalta] 60 mg capsule,delayed release(DR/EC) 60 mg PO BID 30 Days Qty: 60 1RF lamotrigine 150 mg tablet 150 mg PO BID tizanidine 4 mg tablet 4 mg PO BID ziprasidone HCl 60 mg capsule 60 mg PO BID@07,17 Discharge Orders: Discharge ED (Routine); Ordered 04/01/23 Ordered By: Jessica Wadsworth Discharge Diet: Advance as tolerated Discharge Activity: Resume usual activity Patient Instructions: Depression (ED) Coding Level of Care Code ED Hospital Insurance Representative for Adelia Cat
[2023-04-01 23:39] VITALS: BP 153/102; PULSE 76; RESP 18; TEMP 36.8; O2SAT 100; BMI 34.0
== END 2023-04-02 | disposition home or self-care (01) ==
LOC: ER 23:38
PROVIDERS: Emergency Provider Emergency Medicine
DX: F43.9 Reaction to severe stress, unspecified (principal); Z59.11 Inadequate housing environmental temperature; F17.210 Nicotine dependence, cigarettes, uncomplicated
CPT/HCPCS: 99285

== ENCOUNTER → 2024-09-06 15:32 | Outpatient (BNVA) | payer MEDICARE, MEDICAID, SELFPAY | PROVIDERS: Visit Provider Obstetrics & Gynecology | DX: Z01.419 Encounter for gynecological examination (general) (routine) without abnormal findings (principal); N89.8 Other specified noninflammatory disorders of vagina; F19.11 Other psychoactive substance abuse, in remission; F33.9 Major depressive disorder, recurrent, unspecified | CPT/HCPCS: 80053; 84443; 85025; 86705; 86706; 86709; 86803; 87340; 87522; 87806; 88175 ==

== ENCOUNTER → 2024-09-16 10:11 | Outpatient (BNVA) | payer MEDICARE, MEDICAID, SELFPAY | PROVIDERS: Visit Provider Obstetrics & Gynecology | DX: N92.6 Irregular menstruation, unspecified (principal); N88.8 Other specified noninflammatory disorders of cervix uteri; N83.292 Other ovarian cyst, left side | CPT/HCPCS: 76830 ==